=== PATIENT | male | born 1985 | race African-American/Black ===

== ENCOUNTER 2018-07-22 12:57 | Inpatient (IN) | payer MEDICAID, SELFPAY ==
[2018-07-22] VITALS (43 sets, daily range): BP systolic 70–187; BP diastolic 48–112; PULSE 89–136; RESP 13–34; TEMP 35.2–37.3; O2SAT 97–100; BMI 29.7; BMI 24.2; BMI 29.8
--- NOTE | 2018-07-22 13:05 | RAD_ITS ---
STUDY: X-RAY CHEST REASON FOR EXAM: Male, 32 years old. Endotracheal tube and nasogastric tube placement. TECHNIQUE: Single AP portable view of the chest. COMPARISON: Comparison is made with prior study dated September 23, 2013. FINDINGS: An endotracheal tube is in situ. The tip is at 9.5 cm proximal to the amanda. The tip of the nasogastric tube is below the left hemidiaphragm. EKG electrodes are seen. An electrode pad is seen overlying the right axillary region. The lungs are clear and expanded. There is no demonstrated pleural abnormality. Normal size heart. Normal mediastinum and josé manuel. Normal visualized pulmonary arteries. Normal visualized aortic arch and descending thoracic aorta. Normal visualized thoracic spine. Normal visualized ribs, clavicles, and shoulders. There is no demonstrated abnormality of the visualized soft tissue structures of the upper abdomen. RAD/Chest 1 View (Portable) IMPRESSION: The tip of the endotracheal tube is at 9.5 cm proximal to the amanda. Electronically Signed: Miah Sexton MD at 13:56 EST Tel [phone], Service support ,
--- NOTE | 2018-07-22 13:06 | RAD_ITS ---
STUDY: X-RAY - ABDOMEN/PELVIS REASON FOR EXAM: Male, 32 years old. Nasogastric tube placement. TECHNIQUE: Single AP view of the abdomen / pelvis. COMPARISON: None. FINDINGS: Normal visualized lung bases. The tip of the nasogastric tube is in the proximal portion of the body of the stomach. Mildly dilated small bowel loops in the central abdomen. There is a 4.4 rounded metallic BB overlying the left upper quadrant. The visualized liver, spleen and kidneys are grossly normal in size and morphology. Normal soft tissue structures. Normal visualized osseous structures. RAD/Abdomen Single View (Portable) IMPRESSION: The tip of the nasogastric tube is in the proximal portion of the body of the stomach. Slightly dilated small bowel loops in the central abdomen. 4.4 round metallic BB seen overlying the left midabdomen. Electronically Signed: Miah Sexton MD at 13:58 EST Tel [phone], Service support ,
--- NOTE | 2018-07-22 13:13 | EKG12_ITS ---
Test Reason : REPEAT Blood Pressure : / mmHG Vent. Rate : 109 BPM Atrial Rate : 110 BPM P-R Int : 000 ms QRS Dur : 090 ms QT Int : 366 ms P-R-T Axes : 000 089 034 degrees QTc Int : 492 ms Sinus tachycardia Marked ST abnormality, possible anterior subendocardial injury Abnormal ECG When compared with ECG of 22-JUL-2018 13:13, MANUAL COMPARISON REQUIRED, DATA IS UNCONFIRMED Confirmed by RANDELL JEFFREY, ALY ([id number]), telegraph editor BRUCE RIVERA ([id number]) on 07/25/2018 7:46:17 AM Referred By: Kvng Jolly Confirmed By:ALY MEJIAS MD
--- NOTE | 2018-07-22 13:13 | CASEMGMT ---
BABAK responded to code blue. Tool And Production Planner was also present. No family was present. Per police sergeant who spoke with patient's uncle on the phone he was going to find a ride in to the hospital and patient's mom would be here in about a half hour. Tool And Production Planner plans on returning in a little bit to check to see if family has arrived. Message left for ED BABAK. Emilia ALFREDO MSW
--- NOTE | 2018-07-22 13:17 | CHAPLAIN ---
Type of Pastoral Visit ___ Initial Visit ___ Follow-up Visit ___ On-call Visit ___ General Patient Visit ___ Spiritual Assessment ___ Family Conference ___ Bereavement ___ Rapid Response _x__ Code Blue ___ Other (describe below) Pastoral Care Referral From ___ Patient ___ Family ___ Nurse ___ Physician ___ Training Director ___ Physician Office Specialist _x__ Other (describe below) Sacrament/Intervention ___ Active listening ___ Anointing ___ Restorationist ___ Bereavement ___ Communion ___ Lyndsey exploration ___ ___ Life review ___ Prayer ___ Reconciliation ___ Sacrament of Sick ___ Supportive presence ___ Wedding _x__ Other (describe below) Pastoral Comments
--- NOTE | 2018-07-22 13:23 | EKG12_ITS ---
Test Reason : CARDIAC ARREST Blood Pressure : / mmHG Vent. Rate : 148 BPM Atrial Rate : 136 BPM P-R Int : 000 ms QRS Dur : 106 ms QT Int : 308 ms P-R-T Axes : 000 093 -71 degrees QTc Int : 483 ms Atrial fibrillation with rapid ventricular response Incomplete right bundle branch block Possible Right ventricular hypertrophy , Probably RV main ACUTE VT / STEMI Abnormal ECG Inferiorlateral ischemia Confirmed by RANDELL JEFFREY, ALY ([id number]), video effects editor BRUCE RIVERA ([id number]) on 07/25/2018 7:46:41 AM Referred By: Kvng Jolly Confirmed By:ALY MEJIAS MD
[2018-07-22 13:32] LABS: Amphetamine Urine VISTA POSITIVE (<1000 ng/mL); Barbiturate Urine VISTA NEGATIVE (< 200 ng/mL); Benzodiazepine Urine VISTA NEGATIVE (< 200 ng/mL); Cocaine Urine VISTA NEGATIVE (< 300 ng/mL); Ecstacy Urine VISTA POSITIVE (< 500 ng/mL); Methadone Urine VISTA NEGATIVE (< 300 ng/mL); PCP Urine VISTA NEGATIVE (< 25 ng/mL); THC Urine VISTA NEGATIVE (< 50 ng/mL); Vista UDS pH Range 6
[2018-07-22 13:37] LABS: Absolute Lymphocyte Count 3.79 X10^3/ul (0.83-4.51); Absolute Neutrophil Count 0.5 X10^3/uL (2.0-7.7); Basophil# 0.01 X10^3/uL; Basophil% 0.2 % (0-1); Eosinophil# 0.04 X10^3/uL; Eosinophils% 0.9 % (0-5); Hematocrit 40.8 % (40-54); Hemoglobin 12.8 g/dl (13.0-16.5); Lymphocyte # 3.79 X10^3/ul (4.0); Lymphocyte % 82.2 % (19-41); Mean Corp Hgb Conc 31.4 g/gl (32-36); Mean Corpuscular Hgb 28.1 pg (27.0-32.0); Mean Corpuscular Volume 89.5 fL (80-94); Mean Platelet Vol. 9.9 fl (6.2-12.0); Monocyte# 0.21 X10^3/uL; Monocyte% 4.6 % (0-10); Neutrophil # 0.46 X10^3/uL (2.7-7.7); Neutrophil % 9.9 % (47-70); Platelet Count 198 K/mm3 (150-450); RBC Distribution Width CV 12.7 % (11.6-14.6); RBC Distribution Width SD 40.9 fl (35.1-43.9); Red Blood Count 4.56 M/mm3 (4.6-6.2); White Blood Count 4.6 K/mm3 (4.4-11.0)
--- NOTE | 2018-07-22 13:37 | ED.RN ---
PATIENT HAVING GAG REFLEX AND COUGH REFLEX WITH SUCTIONING. PT THEN STARTED POSTURING.
[2018-07-22 13:39] LABS: BUN 13 mg/dL (7-18); Creatinine, Serum 1.97 mg/dL (0.70-1.30); Estimated Creatinine Clearance 61.96 ml/min; Glucose 307 mg/dL (74-106)
[2018-07-22 13:40] LABS: Bacteria 0 SEEN /hpf (None Seen); Red Blood Cells-Urine 0 SEEN /hpf (0-5); Squamous Epithelial Cells - UA 0 SEEN /hpf (0-5); White Blood Cells 0 SEEN /hpf (0-5)
[2018-07-22 13:40] LABS: ALB/GLOB Ratio 1.2 RATIO (0.9-2.4); AST(SGOT) 188 U/L (15-37); Alanine Aminotransfer ALT/SGPT 233 U/L (16-61); Albumin, Serum 3.1 g/dL (3.2-5.0); Alkaline Phosphatase 46 U/L (45-117); Anion Gap 22 (5-15); BUN/Creat Ratio 6.6 RATIO (10-20); Calcium,Total 8.3 mg/dL (8.5-10.1); Chloride 103 mmol/L (98-107); EST Glomerular Filtration Rate 42 mL/min (>60); Est Glom Filt Rate - Afr Amer 51 mL/min (>60); Globulin 2.6 g/dL (2.2-4.2); Potassium 3.8 mmol/L (3.5-5.1); Protein, Total 5.7 g/dL (6.4-8.2); Sodium Level 143 mmol/L (136-145)
[2018-07-22 13:41] LABS: Base Excess -17 mmol/L (-2 to +2); Bicarbonate 11.7 mmol/L (22-26); Blood Gas Specimen Type ART; FI02 40; Mode A-C; O2 Delivery Device Vent; PEEP 5; PO2 192 mmHG (75-100); RR 14; SITE R Radial; SO2 99 % (95-99); Time Given 1320; Total Carbon Dioxide 13 mmol/L; Vt 500; pCO2 31.4 mmHg (35-45); pH 7.18 (7.35-7.45)
--- NOTE | 2018-07-22 13:45 | PCM.CONS.C ---
Reason for Consult Date of Consultation: 07/22/18 History of Present Illness: The patient is a 32 year old M with past medical history significant for drug abuse and alcoholism. He also has a history of bipolar disorder. According to the emergency room physician, the patient was at a known drug house in [facility]. He collapsed outside of [place]. First responders gave him Narcan. He was noted to have no pulse. EMS found the patient to be in PEA. Upon arrival to the emergency room, the patient was in PEA. He was treated as per ACLS protocol with mandaen of pulse. His first EKG was suspicious for ST elevations in V1 and V2 subsequently a STEMI alert was called. Patient at present is intubated. [] Past Medical History Allergies/Adverse Reactions: Allergies Penicillins [PCN] Allergy (Verified 11/23/16 17:03) Abd cramps/diarrhea Home Medications: Ambulatory Orders Medication Instructions Recorded Citalopram [Celexa] 40 mg PO DAILY 08/28/13 Paliperidone Palmitate [Invega 156 mg IM QHS 07/17/15 Sustenna] Ranitidine [Zantac] 150 mg PO BID 07/17/15 Past Medical History (Chronic Problems): Chronic Problems Schizophrenia (Chronic) Drug abuse (Chronic) Methamphetamine abuse (Chronic) Smoking Status: Current every day smoker Review of Systems - Review of Systems General: Reports: - - History of drug abuse and alcoholism. Rest unable to obtain as patient is intubated and no family present. Subjectve: Patient is intubated. Nonresponsive. Objective: Vital Signs Temp Pulse Resp BP Pulse Ox 96.6 F L 91 18 105/58 L 99 07/22/18 13:41 07/22/18 13:41 07/22/18 13:41 07/22/18 13:41 07/22/18 13:41 Oxygen Delivery Method Mechanical Ventilator Weight: 102.4 kg Body Mass Index (BMI) 29.7 General: - - Intubated. On a ventilator. HEENT: Atraumatic, Normocephalic Neck: Supple Lungs: Diminished Nayan Bases Cardiovascular: Regular Rhythm, Normal S1, Normal S2 Abdomen: Bowel Sounds Present, Soft Extremities: No edema Neurological: - - Patient appears to have a gag reflex as noted from his reaction when his ET tube was being suctioned. 07/22/18 13:00: Sodium 143, Potassium 3.8, Chloride 103, Carbon Dioxide 18.0 L, Anion Gap 22 H, BUN 13, Creatinine 1.97 H, Est GFR (MDRD) Af Amer 51 L, Est GFR (MDRD) Non-Af 42 L, BUN/Creatinine Ratio 6.6 L, Glucose 307 H, Calcium 8.3 L, Total Bilirubin 0.30, Troponin I < 0.015 07/22/18 13:33: pH 7.18 L*, Bicarbonate Actual 11.7 L, POC Total CO2 13, Base Excess -17 L, O2 Saturation 99, ABG pCO2 31.4 L, ABG pO2 192 H, Abiel Test NA 07/22/18 13:37: pH 7.18 L*, Bicarbonate Actual 11.7 L, POC Total CO2 13, Base Excess -17 L, O2 Saturation 99, ABG pCO2 31.4 L, ABG pO2 187 H, Abiel Test NA Rhythm: Normal sinus rhythm EKG: First EKG showed possible ST elevations in V1 and V2. However subsequent EKGs showed resolution of that. ECHO: Quick bedside imaging revealed normal LV systolic function. Full study being awaited Stress Test: Cardiac Cath: PCI: CT Surgery: Holter monitor: EPS: PPM: CXR: Chest CT Scan: Assessment/Plan 1. PEA cardiac arrest. Most likely secondary to drug abuse. Manage as per critical care. LV systolic function appears grossly normal. No V. fib was noted either by EMS or upon arrival in the emergency room 2. EKG changes. Initial EKG changes likely secondary to epinephrine boluses that he got during his resuscitation attempts. Presently no ST elevation myocardial infarction 3. Vent dependent respiratory failure. 4. History of drug abuse 5. History of EtOH abuse
[2018-07-22 13:49] LABS: International Normalized Ratio 1.4; Prothrombin Time (Protime)PT. 17.4 SECONDS (11.7-14.9)
[2018-07-22 13:50] LABS: Color, Urine Yellow (Yellow); Glucose, Dipstick Normal (Normal); Ketone-Dipstick 5 mg/dl (Negative); Leukocyte Esterase-Dipstick Negative /ul (Negative); Nitrite-Dipstick Negative (Negative); Occult Blood-Urine Negative /ul (Negative); Protein-Dipstick 30 mg/dl (Negative); Urine Bilirubin Dipstick Negative (Negative); Urine Clarity Clear (Clear); Urine Urobilinogen 1 mg/dl (Normal)
[2018-07-22 13:53] LABS: Differential Indicated SCAN CRITERIA MET; POSITIVE COUNT YES; POSITIVE DIFFERENTIAL YES; POSITIVE MORPHOLOGY YES
--- NOTE | 2018-07-22 13:55 | ECHOD_ITS ---
Reason For Study: Abn EKG Left Ventricle Normal LV size. Left ventricular systolic function is lower limits of normal. The estimated ejection fraction is 50 %. Normal diastology for age. No regional wall motion abnormalities noted. Right Ventricle Mildly dilated right ventricle. Mild global right ventricular systolic dysfunction. Atria Normal left atrium. Normal right atrium. Mitral Valve Normal mitral valve. Tricuspid Valve Normal tricuspid valve. Mild to moderate (1-2+) tricuspid valve insufficiency. Pulmonary artery systolic pressure is 45 mmHg. Aortic Valve Normal aortic valve. Trisinus/trileaflet aortic valve. Pulmonic Valve Normal pulmonic valve. Great Vessels Normal aortic root. The pulmonary artery is normal size. Normal inferior vena cava. Pericardium/Pleural No pericardial effusion. MMode/2D Measurements & Calculations LVIDd: 4.7 cm IVSd: 1.0 cm Ao root diam: 2.8 cm LVIDs: 2.8 cm LVPWd: 1.2 cm RVDd: 4.0 cm FS: 38.8 % LAV(MOD-sp4): 30.2 ml LA A4 area: 14.5 cm2 LA dimension(2D): 2.8 cm RA A4 area: 18.9 cm2 Doppler Measurements & Calculations MV E max carlos: 63.9 cm/sec Lat Peak E' Carlos: 16.1 cm/sec Med Peak E' Carlos: 10.1 cm/sec MV A max carlos: 43.5 cm/sec E/E' lat: 4.0 E/E' med: 6.3 MV E/A: 1.5 Ao V2 max: 103.5 cm/sec LV V1 max: 84.6 cm/sec PA V2 max: 95.3 cm/sec Ao max P.3 mmHg LV V1 max P.9 mmHg TR max carlos: 315.2 cm/sec TR max P.7 mmHg Interpretation Summary Normal LV size. Left ventricular systolic function is lower limits of normal. The estimated ejection fraction is 50 %. Mild to moderate (1-2+) tricuspid valve insufficiency. Pulmonary artery systolic pressure is 45 mmHg. Normal diastology for age. Mildly dilated right ventricle. Mild global right ventricular systolic dysfunction. Ordering Physician: Yessenia Chapman Referring Physician: Yessenia Chapman Performed By: Mihaela Suero RDCS
[2018-07-22 13:57] LABS: Differential Comment SCANNED; Reactive Lymphocyte 1+
[2018-07-22 13:58] LABS: Mucous, Urine 3+ /hpf (<or=2+)
--- NOTE | 2018-07-22 14:02 | CPS ---
pt intubated by squad size 8.0 tube
[2018-07-22 14:05] LABS: Lactic Acid 14.3 mmol/L (0.4-2.0)
--- NOTE | 2018-07-22 14:11 | PCM.HP.STD ---
Problem List (1) Cardiac arrest Status: Acute (2) Metabolic acidosis, increased anion gap Status: Acute (3) GERD (gastroesophageal reflux disease) Status: Acute (4) Schizophrenia Status: Acute (5) Drug abuse Status: Acute History of Present Illness Date of Admission: 07/22/18 Chief Complaint: Cardiac arrest The patient is a 32 year old M with a history of drug abuse, possible bipolar disorder, GERD who presented after leaving a friend's house that is a known drug user. He went to [facility] and it is unclear whether or not police witnessed him arrest or they arrived and he was already in cardiac arrest. EMS was called and they administered Narcan after the police had also administered Narcan, and they noticed that he had no pulse and proceeded to perform CPR. He was brought to the emergency room where CPR was continued and multiple rounds of epinephrine were given and an EKG demonstrated a STEMI and cardiology was consulted. After about 10 minutes the STEMI had resolved on EKG and cardiology felt this was due to the epinephrine that had been given during CPR. He was successfully resuscitated and was also intubated. All history was obtained through chart review as no family was present. Past Medical History Allergies Penicillins [PCN] Allergy (Verified 11/23/16 17:03) Abd cramps/diarrhea Home Medications: Ambulatory Orders Medication Instructions Recorded Citalopram [Celexa] 40 mg PO DAILY 08/28/13 Paliperidone Palmitate [Invega 156 mg IM QHS 07/17/15 Sustenna] Ranitidine [Zantac] 150 mg PO BID 07/17/15 Surgical History: - - Unable to obtain since patient is intubated and sedated Smoking Status: Current every day smoker Tobacco Use: Cigarettes Drugs: - - UA is positive for methamphetamines, however given the patient is sedated and intubated unable to clarify all drugs used and how much alcohol is used. Review of Systems Unable to obtain accurate/complete ROS d/t: Intubation and sedation therefore unable to also obtain family history VTE Information - Inpt Only VTE Present on Admission: No Patient Problems: Active and Suspected Problems Cardiac arrest (Acute) Metabolic acidosis, increased anion gap (Acute) GERD (gastroesophageal reflux disease) (Acute) Schizophrenia (Acute) Drug abuse (Acute) - Physical Exam General: - - Intubated and sedated HEENT: Atraumatic, PERRLA, Normocephalic Oral: Dry Mucosa Neck: Supple, Trachea Midline Lungs: Clear to auscultation, Normal air movement, No rhonchi, No wheeze, No rales Cardiovascular: Regular rate, Regular Rhythm, Normal S1, Normal S2, No murmurs Abdomen: Soft, Non-Distended, No Hepato-splenomegaly Extremities: No edema, Capillary Refill Less than 3 Seconds Neurological: - - Intubated and sedated Psych/Mental Status: - - Debated and sedated Vital Signs Temp Pulse Resp BP Pulse Ox 95.5 F L 92 14 110/69 99 07/22/18 13:56 07/22/18 13:56 07/22/18 13:56 07/22/18 13:56 07/22/18 13:56 Oxygen Delivery Method Mechanical Ventilator Weight: 225 lb 12.054 oz Body Mass Index (BMI) 29.7 Laboratory Tests Past 24 Hrs 07/22/18 07/22/18 07/22/18 13:00 13:00 13:00 WBC 4.6 RBC 4.56 L Hgb 12.8 L Hct 40.8 MCV 89.5 MCH 28.1 MCHC 31.4 L RDW 12.7 RDW Differential 40.9 Plt Count 198 MPV 9.9 Immature Gran % (Auto) 2.200 H Neut % (Auto) 9.9 L Lymph % (Auto) 82.2 H [place] % (Auto) 4.6 Eos % (Auto) 0.9 Baso % (Auto) 0.2 Absolute Neuts (auto) 0.5 L Absolute Lymphs (auto) 3.79 Total Counted Not Reportable Differential Comment SCANNED Diff Path Review May foll Reactive Lymphocytes 1+ PT 17.4 H INR 1.4 Specimen Type Sample Site pH Bicarbonate Actual POC Total CO2 Base Excess O2 Saturation O2 % ABG pCO2 ABG pO2 Abiel Test Respiration Rate O2 Delivery Device Minute Volume Vent Mode Tidal Volume POC PEEP Blood Gas Notified Whom Blood Gas Notified Time Sodium 143 Potassium 3.8 Chloride 103 Carbon Dioxide 18.0 L Anion Gap 22 H BUN 13 Creatinine 1.97 H Estim Creat Clear Calc 61.96 Est GFR (MDRD) Af Amer 51 L Est GFR (MDRD) Non-Af 42 L BUN/Creatinine Ratio 6.6 L Glucose 307 H Lactic Acid Calcium 8.3 L Total Bilirubin 0.30 AST 188 H ALT 233 H Alkaline Phosphatase 46 Troponin I < 0.015 Total Protein 5.7 L Albumin 3.1 L Globulin 2.6 Albumin/Globulin Ratio 1.2 Urine Color Urine Clarity Urine pH Ur Specific Neola Urine Protein Urine Glucose (UA) Urine Ketones Urine Occult Blood Urine Nitrite Urine Bilirubin Urine Urobilinogen Ur Leukocyte Esterase Urine RBC Urine WBC Ur Squamous Epith Cells Urine Bacteria Urine Mucus Urine Opiates Screen Urine Methadone Screen Ur Barbiturates Screen Ur Phencyclidine Scrn Ur Amphetamines Screen U Methamphetamin-MDMA U Benzodiazepines Scrn Urine Cocaine Screen U Cannabinoids Screen Ur Drug Screen Comment 07/22/18 07/22/18 07/22/18 13:10 13:10 13:16 WBC RBC Hgb Hct MCV MCH MCHC RDW RDW Differential Plt Count MPV Immature Gran % (Auto) Neut % (Auto) Lymph % (Auto) [place] % (Auto) Eos % (Auto) Baso % (Auto) Absolute Neuts (auto) Absolute Lymphs (auto) Total Counted Differential Comment Diff Path Review Reactive Lymphocytes PT INR Specimen Type Sample Site pH Bicarbonate Actual POC Total CO2 Base Excess O2 Saturation O2 % ABG pCO2 ABG pO2 Abiel Test Respiration Rate O2 Delivery Device Minute Volume Vent Mode Tidal Volume POC PEEP Blood Gas Notified Whom Blood Gas Notified Time Sodium Potassium Chloride Carbon Dioxide Anion Gap BUN Creatinine Estim Creat Clear Calc Est GFR (MDRD) Af Amer Est GFR (MDRD) Non-Af BUN/Creatinine Ratio Glucose Lactic Acid 14.3 H* Calcium Total Bilirubin AST ALT Alkaline Phosphatase Troponin I Total Protein Albumin Globulin Albumin/Globulin Ratio Urine Color Yellow Urine Clarity Clear Urine pH 5.0 Ur Specific Neola 1.030 Urine Protein 30 H Urine Glucose (UA) Normal Urine Ketones 5 H Urine Occult Blood Negative Urine Nitrite Negative Urine Bilirubin Negative Urine Urobilinogen 1 H Ur Leukocyte Esterase Negative Urine RBC 0 SEEN Urine WBC 0 SEEN Ur Squamous Epith Cells 0 SEEN Urine Bacteria 0 SEEN Urine Mucus 3+ Urine Opiates Screen NEGATIVE Urine Methadone Screen NEGATIVE Ur Barbiturates Screen NEGATIVE Ur Phencyclidine Scrn NEGATIVE Ur Amphetamines Screen POSITIVE H U Methamphetamin-MDMA POSITIVE H U Benzodiazepines Scrn NEGATIVE Urine Cocaine Screen NEGATIVE U Cannabinoids Screen NEGATIVE Ur Drug Screen Comment 07/22/18 07/22/18 13:33 13:37 WBC RBC Hgb Hct MCV MCH MCHC RDW RDW Differential Plt Count MPV Immature Gran % (Auto) Neut % (Auto) Lymph % (Auto) [place] % (Auto) Eos % (Auto) Baso % (Auto) Absolute Neuts (auto) Absolute Lymphs (auto) Total Counted Differential Comment Diff Path Review Reactive Lymphocytes PT INR Specimen Type ART ART Sample Site R Radial R Radial pH 7.18 L* 7.18 L* Bicarbonate Actual 11.7 L 11.7 L POC Total CO2 13 13 Base Excess -17 L -17 L O2 Saturation 99 99 O2 % 40 40 ABG pCO2 31.4 L 31.4 L ABG pO2 192 H 187 H Abiel Test NA NA Respiration Rate 14 14 O2 Delivery Device Vent Vent Minute Volume 13.00 13.00 Vent Mode A-C A-C Tidal Volume 500 500 POC PEEP 5 5 Blood Gas Notified Whom ED MD ED MD Blood Gas Notified Time 1320 1330 Sodium Potassium Chloride Carbon Dioxide Anion Gap BUN Creatinine Estim Creat Clear Calc Est GFR (MDRD) Af Amer Est GFR (MDRD) Non-Af BUN/Creatinine Ratio Glucose Lactic Acid Calcium Total Bilirubin AST ALT Alkaline Phosphatase Troponin I Total Protein Albumin Globulin Albumin/Globulin Ratio Urine Color Urine Clarity Urine pH Ur Specific Neola Urine Protein Urine Glucose (UA) Urine Ketones Urine Occult Blood Urine Nitrite Urine Bilirubin Urine Urobilinogen Ur Leukocyte Esterase Urine RBC Urine WBC Ur Squamous Epith Cells Urine Bacteria Urine Mucus Urine Opiates Screen Urine Methadone Screen Ur Barbiturates Screen Ur Phencyclidine Scrn Ur Amphetamines Screen U Methamphetamin-MDMA U Benzodiazepines Scrn Urine Cocaine Screen U Cannabinoids Screen Ur Drug Screen Comment Assessment/Plan All Active Problems Cardiac arrest (Acute) Metabolic acidosis, increased anion gap (Acute) GERD (gastroesophageal reflux disease) (Acute) Schizophrenia (Acute) Drug abuse (Acute) 1. Metabolic acidosis with an anion gap after cardiac arrest likely secondary to acute drug use/JENNIFER - Per report he was pulseless for anywhere between 25 and 45 minutes - UDS is positive for Methamphetamines - Hemodynamically stable at the moment - C/s to cardiology and monomer recovery operator - Intubated and sedated - PPI on board as well as NPO - IVF@150, monitor labs and renal function given elevated creatining to 1.97 - Lactic acid is 14.3, will repeat and monitor - He is having some reflexive activity, but nothing that seems overtly purposeful 2. Bipolar/Depression - Will hold his home medications 3. Elevated LFTs - Likely acute given arrest - Last LFTs in 11/2016 were normal - Will monitor Given the duration of his pulselessness and the degree of metabolic derangement, prognosis is guarded. Reported that family should be arriving soon. Will discuss with family when they arrive. DVT: Heparin/SCDs Code Visit Inpatient E&M: 55268 Init Hosp L3
[2018-07-22] MEDS: Aspirin 325 MG Tablet PO (14:29)
--- NOTE | 2018-07-22 14:30 | CT_ITS ---
STUDY: CT BRAIN WITHOUT CONTRAST REASON FOR EXAM: Male, 32 years old. Altered mental status. Overdose. RADIATION DOSAGE (If Supplied By Facility): CTDIvol = ( 60.81 ) mGy, DLP = ( 1997.33 ) mGycm TECHNIQUE: Transaxial CT imaging of the brain was performed without administration of intravenous contrast material. Individualized dose optimization techniques were used for this CT. COMPARISON: Comparison is made with prior study dated September 23, 2013. FINDINGS: Normal soft tissue structures. Normal calvarium. Normal size ventricles and extra-axial spaces for the patient's age. Normal white matter tracts of the cerebral hemispheres. Normal basal ganglia and thalami. Normal brainstem. Normal cerebellum. There is no intracranial hemorrhage. There are no findings of an acute ischemic infarction. Partial opacification of the left maxillary sinus. Mucosal thickening of the ethmoid sinuses. CT/Brain/Head without Contrast IMPRESSION: Normal unenhanced CT scan of the brain. Partial opacification of the left axillary sinus and mucosal thickening of the ethmoid sinuses. Electronically Signed: Miah Sexton MD at 15:30 EST Tel [phone], Service support ,
--- NOTE | 2018-07-22 14:48 | ED.VISSUMM ---
- ER Visit Summary Date of Service: 07/22/18 Chief Complaint: Unresponsive/CPR in progress History of Present Illness: The patient is a 32 M who presents after being found unresponsive. According to police and EMS he was found coming from a known drug house. There are specialty is methamphetamines. He then went to [facility] and he was found unresponsive. EMS was called. Police and EMS both administered Narcan without any response. EMS then noted PEA and started CPR. They administered 2 rounds of epinephrine. The rest of the patient's medical history is unknown at this time. Physical Examination: Patient currently has no vital signs. HEENT exam reveals fixed pupils. His mucous members are moist. He currently has no pulse. He has diminished breath sounds on the left. He is currently intubated. Abdomen soft and nondistended. He has no peripheral edema. No rashes on the skin. He is currently unresponsive with no purposeful movements. GCS is 3T Test Results: [] Emergency Department Course and Treatment: Upon arrival patient was given another dose of epinephrine. He then regained a pulse. Initial EKG after regaining the pulse revealed some ST elevation in V1 through V3. A STEMI team was called. I spoke with Dr. Chapman who came to evaluate the patient. Repeat EKG revealed no ST elevation. This was likely due to the epinephrine given. He was not taken to the Vocational Training Teacher. The project admin recommended an echocardiogram at bedside and aspirin, Brilinta and heparin. Patient's initial heart rate was elevated in the 140s but then was sinus rhythm in the 90s after 20 minutes. His laboratory studies reveal a normal hemoglobin. He has a elevated anion gap secondary to lactic acidosis of 14.2. Troponin normal. ABG on the ventilator is 7.18/31.4/1 87/11.7. Tox screen reveals methamphetamines. Chest x-ray reveals that his endotracheal tube is 9-1/2 cm above the amanda. This was advanced slightly. Dr. Darden with the ICU was at bedside in the emergency department and evaluate the patient as well. I discussed with hospitalist for admission. Patient will be started on propofol for sedation Treatment Plan: [] Disposition: Admit Impression: Cardiopulmonary arrest Drug abuse Critical care time 40 minutes This note was generated with [employer] software. It may contain incorrect words, spelling, and punctuation that were not noted in review of the chart prior to signing ED Disposition - Plan for ED Patient: Chief Complaint: CPR
[2018-07-22] MEDS: Propofol 10MG/Ml 1,000 MG/100 ML Bottle 6.144 MG CONT INF (14:50)
--- NOTE | 2018-07-22 14:52 | ED.DCSUM_ITS ---
- ER Visit Summary Date of Service: 07/22/18 Chief Complaint: Unresponsive/CPR in progress History of Present Illness: The patient is a 32 M who presents after being found unresponsive. According to police and EMS he was found coming from a known drug house. There are specialty is methamphetamines. He then went to [facility] and he was found unresponsive. EMS was called. Police and EMS both administered Narcan without any response. EMS then noted PEA and started CPR. They administered 2 rounds of epinephrine. The rest of the patient's medical history is unknown at this time. Physical Examination: Patient currently has no vital signs. HEENT exam reveals fixed pupils. His mucous members are moist. He currently has no pulse. He has diminished breath sounds on the left. He is currently intubated. Abdomen soft and nondistended. He has no peripheral edema. No rashes on the skin. He is currently unresponsive with no purposeful movements. GCS is 3T Test Results: [] Emergency Department Course and Treatment: Upon arrival patient was given another dose of epinephrine. He then regained a pulse. Initial EKG after regaining the pulse revealed some ST elevation in V1 through V3. A STEMI team was called. I spoke with Dr. Chapman who came to evaluate the patient. Repeat EKG revealed no ST elevation. This was likely due to the epinephrine given. He was not taken to the Stereotyper. The user interface engineer recommended an echocardiogram at bedside and aspirin, Brilinta and heparin. Patient's initial heart rate was elevated in the 140s but then was sinus rhythm in the 90s after 20 minutes. His laboratory studies reveal a normal hemoglobin. He has a elevated anion gap secondary to lactic acidosis of 14.2. Troponin normal. ABG on the ventilator is 7.18/31.4/1 87/11.7. Tox screen reveals methamphetamines. Chest x-ray reveals that his endotracheal tube is 9-1/2 cm above the amanda. This was advanced slightly. Dr. Darden with the ICU was at bedside in the emergency department and evaluate the patient as well. I discussed with hospitalist for admission. Patient will be started on propofol for sedation Treatment Plan: [] Disposition: Admit Impression: Cardiopulmonary arrest Drug abuse Critical care time 40 minutes This note was generated with [employer] software. It may contain incorrect words, spelling, and punctuation that were not noted in review of the chart prior to signing ED Disposition - Plan for ED Patient: Chief Complaint: CPR
--- NOTE | 2018-07-22 15:37 | RAD_ITS ---
STUDY: X-RAY CHEST REASON FOR EXAM: Male, 32 years old. Tube placement TECHNIQUE: Frontal view of the chest COMPARISON: 07/22/2018 FINDINGS: There is an endotracheal tube noted with its tip approximately 3 cm above the amanda. There is an enteric tube noted with its tip in the stomach. The lungs are clear. There are no pleural effusions. There is no pneumothorax. The heart is normal in size. The visualized osseous structures are within normal limits. RAD/Chest 1 View (Portable) IMPRESSION: Satisfactory position of the support lines and tubes. No acute thoracic pathology. Electronically Signed: Romain Salazar, at 16:11 EST Tel , Service support ,
--- NOTE | 2018-07-22 15:40 | CASEMGMT ---
Social Work Note Response to code blue. Pt was brought in by EMS. Family arrived and was updated regarding pt's status. Offered support and family declined needs. Made aware that SW was available. Assistant Fitness Manager remained in room. THALIA Hylton, SAYDA
--- NOTE | 2018-07-22 16:05 | CHAPLAIN ---
Type of Pastoral Visit ___ Initial Visit ___ Follow-up Visit ___ On-call Visit ___ General Patient Visit ___ Spiritual Assessment ___ Family Conference ___ Bereavement ___ Rapid Response _x__ Code Blue ___ Other (describe below) Pastoral Care Referral From ___ Patient _x__ Family ___ Nurse ___ Physician ___ Automobile Technician ___ Esol Instructor _x__ Other (describe below) Sacrament/Intervention ___ Active listening ___ Anointing ___ Evangelical ___ Bereavement ___ Communion ___ Lyndsey exploration ___ ___ Life review _x__ Prayer ___ Reconciliation ___ Sacrament of Sick _x__ Supportive presence ___ Wedding _x__ Other (describe below) Pastoral Comments met family as they came to ED and then escorted family to ICU; time given, presence, offers of support and items that might be appreciated; connected family with ICU waitstaff captain; prayer welcomed; follow up with family in waiting room after other patients visited
[2018-07-22] MEDS: 0.9% Normal Saline 1,000 ML 150 ML IV ×2 (16:18→23:33)
[2018-07-22 16:27] LABS: Lactic Acid 4.1 mmol/L (0.4-2.0)
[2018-07-22 16:32] LABS: CPK Total, Creatine Kinase 166 U/L (39-308); Triglycerides 88 mg/dL
--- NOTE | 2018-07-22 16:40 | PCM.CON.CC ---
Problem List (1) Methamphetamine abuse Status: Chronic (2) Cardiac arrest Status: Acute (3) Metabolic acidosis, increased anion gap Status: Acute (4) GERD (gastroesophageal reflux disease) Status: Suspected Qualifiers: Esophagitis presence: esophagitis presence not specified Qualified Code(s): K21.9 - Gastro-esophageal reflux disease without esophagitis (5) Schizophrenia Status: Chronic Qualifiers: Schizophrenia type: paranoid schizophrenia Qualified Code(s): F20.0 - Paranoid schizophrenia (6) Drug abuse Status: Chronic Reason for Consult Date of Consultation: 07/22/18 Reason for Consultation: Cardiac arrest History of Present Illness: The patient is a 32 year old M, with past medical history listed below, who presented to [facility] on 07/22/2018 after having an arrest at a local [facility]. Initial history was very unclear, but patient was found in cardiac arrest by EMS. Patient did receive Narcan x2 with no improvement. Patient had received multiple rounds of epinephrine, bicarbonate and was endotracheally intubated for reported PEA arrest. Estimated downtime ranges between 25 and 45 minutes. Patient did obtain return to spontaneous perfusion while in the emergency department. A STEMI team was called, but patient was not taken to the Chief Deputy Clerk/Bailiff as it was thought to be secondary to epinephrine. Patient was personally evaluated while in the emergency department. Since my initial evaluation, patient has not been responsive to any questioning. Patient has noted to be posturing, diaphoretic and drooling. Patient with pinpoint pupils with variable reactivity. Patient was noted to have a gag and cough reflex on my initial evaluation. Patient has remained tachypneic. Multiple family members have been to him. Patient does have a history of mental health disease, but reportedly has been getting injections every other week with improvement in overall condition. Spoke with patient's girlfriend named Emilia and she states that the patient has been using a significant amount of methamphetamine over the last week. Patient had been having issues with shortness of breath, but this was resolving spontaneously, so he did not seek evaluation in the ER. Patient reportedly would become extremely short of breath and put his hands on his knees, but would recover over 5-7 minutes. Patient was reportedly chasing someone just prior to having his arrest. Patient reportedly had used methamphetamine approximately 1 hour prior to the event per Emilia. Patient reportedly has not had any constitutional symptoms such as fever, chills, nausea, vomiting, diarrhea, syncope, chest pain, abdominal pain or lower extremity swelling recently. Past Medical History Past Medical History (Chronic Problems): Chronic Problems Schizophrenia (Chronic) Drug abuse (Chronic) Methamphetamine abuse (Chronic) Allergies Penicillins [PCN] Allergy (Verified 11/23/16 17:03) Abd cramps/diarrhea Home Medications: Ambulatory Orders Medication Instructions Recorded Citalopram [Celexa] 40 mg PO DAILY 08/28/13 Paliperidone Palmitate [Invega 156 mg IM QHS 07/17/15 Sustenna] Ranitidine [Zantac] 150 mg PO BID 07/17/15 Surgical History: - - Unable to obtain since patient is intubated and sedated Smoking Status: Current every day smoker Tobacco Use: Cigarettes Drugs: - - UA is positive for methamphetamines, however given the patient is sedated and intubated unable to clarify all drugs used and how much alcohol is used. Review of Systems Comment: See HPI Patient Problems: Active and Suspected Problems Cardiac arrest (Acute) Metabolic acidosis, increased anion gap (Acute) GERD (gastroesophageal reflux disease) (Suspected) Objective: CT scan of the head was personally reviewed. Patient did have decreased ventricular size and there were some areas of possible strauss-white blurring. Thickening of ethmoid sinuses was appreciated. Original chest x-ray showed an extremely high endotracheal tube. This was adjusted. Repeat chest x-ray shows no obvious aspiration in appropriate placement of supportive devices. - Physical Exam General: - - Diaphoretic. Not following commands. Flexion posturing noted HEENT: Atraumatic, Normocephalic, - - Scleral injection. Oral: Moist Mucosa, No Gingival or Mucosal Lesions/ Ulcerations, - - Hypersalivation Neck: Supple, No JVD, No Nodes, Trachea Midline Lungs: Clear to auscultation, Normal air movement, No rhonchi, No wheeze, No rales, - - Fair to poor vent synchrony. No dullness to percussion Cardiovascular: Normal S1, Normal S2, No murmurs, No rub noted, No Gallop, Tachycardic Abdomen: Bowel Sounds Present, Soft, Non Tender, Non-Distended, No Hepato-splenomegaly Extremities: No clubbing, No cyanosis, No edema, Capillary Refill Less than 3 Seconds Skin: No rashes, No breakdown Musculoskeletal: No Tenderness to Palpation of Joints or Extremities Lymphatic: No Cervical, Supraclavicular, or Inguinal Adenopathy Neurological: - - Positive gag and cough reflexes noted. Posturing improving with sedation. Pinpoint pupils. Psych/Mental Status: Impulsive, Restless Vital Signs Temp Pulse Resp BP Pulse Ox 35.2 C L 122 H 33 H 128/68 H 100 07/22/18 14:55 07/22/18 16:13 07/22/18 16:13 07/22/18 14:55 07/22/18 16:13 Oxygen Delivery Method Mechanical Ventilator Weight: 102.4 kg Body Mass Index (BMI) 29.7 Laboratory Tests Past 24 Hrs 07/22/18 07/22/18 07/22/18 13:00 13:00 13:00 WBC 4.6 RBC 4.56 L Hgb 12.8 L Hct 40.8 MCV 89.5 MCH 28.1 MCHC 31.4 L RDW 12.7 RDW Differential 40.9 Plt Count 198 MPV 9.9 Immature Gran % (Auto) 2.200 H Neut % (Auto) 9.9 L Lymph % (Auto) 82.2 H Hawkins % (Auto) 4.6 Eos % (Auto) 0.9 Baso % (Auto) 0.2 Absolute Neuts (auto) 0.5 L Absolute Lymphs (auto) 3.79 Total Counted Not Reportable Differential Comment SCANNED Diff Path Review May foll Reactive Lymphocytes 1+ PT 17.4 H INR 1.4 Specimen Type Sample Site pH Bicarbonate Actual POC Total CO2 Base Excess O2 Saturation O2 % ABG pCO2 ABG pO2 Abiel Test Respiration Rate O2 Delivery Device Minute Volume Vent Mode Tidal Volume POC PEEP Blood Gas Notified Whom Blood Gas Notified Time Sodium 143 Potassium 3.8 Chloride 103 Carbon Dioxide 18.0 L Anion Gap 22 H BUN 13 Creatinine 1.97 H Estim Creat Clear Calc 61.96 Est GFR (MDRD) Af Amer 51 L Est GFR (MDRD) Non-Af 42 L BUN/Creatinine Ratio 6.6 L Glucose 307 H Lactic Acid Calcium 8.3 L Total Bilirubin 0.30 AST 188 H ALT 233 H Alkaline Phosphatase 46 Total Creatine Kinase Troponin I < 0.015 Total Protein 5.7 L Albumin 3.1 L Globulin 2.6 Albumin/Globulin Ratio 1.2 Triglycerides Urine Color Urine Clarity Urine pH Ur Specific [place] Urine Protein Urine Glucose (UA) Urine Ketones Urine Occult Blood Urine Nitrite Urine Bilirubin Urine Urobilinogen Ur Leukocyte Esterase Urine RBC Urine WBC Ur Squamous Epith Cells Urine Bacteria Urine Mucus Urine Opiates Screen Urine Methadone Screen Ur Barbiturates Screen Ur Phencyclidine Scrn Ur Amphetamines Screen U Methamphetamin-MDMA U Benzodiazepines Scrn Urine Cocaine Screen U Cannabinoids Screen Ur Drug Screen Comment 07/22/18 07/22/18 07/22/18 13:00 13:10 13:10 WBC RBC Hgb Hct MCV MCH MCHC RDW RDW Differential Plt Count MPV Immature Gran % (Auto) Neut % (Auto) Lymph % (Auto) Hawkins % (Auto) Eos % (Auto) Baso % (Auto) Absolute Neuts (auto) Absolute Lymphs (auto) Total Counted Differential Comment Diff Path Review Reactive Lymphocytes PT INR Specimen Type Sample Site pH Bicarbonate Actual POC Total CO2 Base Excess O2 Saturation O2 % ABG pCO2 ABG pO2 Abiel Test Respiration Rate O2 Delivery Device Minute Volume Vent Mode Tidal Volume POC PEEP Blood Gas Notified Whom Blood Gas Notified Time Sodium Potassium Chloride Carbon Dioxide Anion Gap BUN Creatinine Estim Creat Clear Calc Est GFR (MDRD) Af Amer Est GFR (MDRD) Non-Af BUN/Creatinine Ratio Glucose Lactic Acid Calcium Total Bilirubin AST ALT Alkaline Phosphatase Total Creatine Kinase 166 Troponin I Total Protein Albumin Globulin Albumin/Globulin Ratio Triglycerides 88 Urine Color Yellow Urine Clarity Clear Urine pH 5.0 Ur Specific [place] 1.030 Urine Protein 30 H Urine Glucose (UA) Normal Urine Ketones 5 H Urine Occult Blood Negative Urine Nitrite Negative Urine Bilirubin Negative Urine Urobilinogen 1 H Ur Leukocyte Esterase Negative Urine RBC 0 SEEN Urine WBC 0 SEEN Ur Squamous Epith Cells 0 SEEN Urine Bacteria 0 SEEN Urine Mucus 3+ Urine Opiates Screen NEGATIVE Urine Methadone Screen NEGATIVE Ur Barbiturates Screen NEGATIVE Ur Phencyclidine Scrn NEGATIVE Ur Amphetamines Screen POSITIVE H U Methamphetamin-MDMA POSITIVE H U Benzodiazepines Scrn NEGATIVE Urine Cocaine Screen NEGATIVE U Cannabinoids Screen NEGATIVE Ur Drug Screen Comment 07/22/18 07/22/18 07/22/18 13:16 13:33 13:37 WBC RBC Hgb Hct MCV MCH MCHC RDW RDW Differential Plt Count MPV Immature Gran % (Auto) Neut % (Auto) Lymph % (Auto) Hawkins % (Auto) Eos % (Auto) Baso % (Auto) Absolute Neuts (auto) Absolute Lymphs (auto) Total Counted Differential Comment Diff Path Review Reactive Lymphocytes PT INR Specimen Type ART ART Sample Site R Radial R Radial pH 7.18 L* 7.18 L* Bicarbonate Actual 11.7 L 11.7 L POC Total CO2 13 13 Base Excess -17 L -17 L O2 Saturation 99 99 O2 % 40 40 ABG pCO2 31.4 L 31.4 L ABG pO2 192 H 187 H Abiel Test NA NA Respiration Rate 14 14 O2 Delivery Device Vent Vent Minute Volume 13.00 13.00 Vent Mode A-C A-C Tidal Volume 500 500 POC PEEP 5 5 Blood Gas Notified Whom ED MD ED MD Blood Gas Notified Time 1320 1330 Sodium Potassium Chloride Carbon Dioxide Anion Gap BUN Creatinine Estim Creat Clear Calc Est GFR (MDRD) Af Amer Est GFR (MDRD) Non-Af BUN/Creatinine Ratio Glucose Lactic Acid 14.3 H* Calcium Total Bilirubin AST ALT Alkaline Phosphatase Total Creatine Kinase Troponin I Total Protein Albumin Globulin Albumin/Globulin Ratio Triglycerides Urine Color Urine Clarity Urine pH Ur Specific [place] Urine Protein Urine Glucose (UA) Urine Ketones Urine Occult Blood Urine Nitrite Urine Bilirubin Urine Urobilinogen Ur Leukocyte Esterase Urine RBC Urine WBC Ur Squamous Epith Cells Urine Bacteria Urine Mucus Urine Opiates Screen Urine Methadone Screen Ur Barbiturates Screen Ur Phencyclidine Scrn Ur Amphetamines Screen U Methamphetamin-MDMA U Benzodiazepines Scrn Urine Cocaine Screen U Cannabinoids Screen Ur Drug Screen Comment 07/22/18 07/22/18 15:40 15:40 WBC RBC Hgb Hct MCV MCH MCHC RDW RDW Differential Plt Count MPV Immature Gran % (Auto) Neut % (Auto) Lymph % (Auto) Hawkins % (Auto) Eos % (Auto) Baso % (Auto) Absolute Neuts (auto) Absolute Lymphs (auto) Total Counted Differential Comment Diff Path Review Reactive Lymphocytes PT INR Specimen Type Sample Site pH Bicarbonate Actual POC Total CO2 Base Excess O2 Saturation O2 % ABG pCO2 ABG pO2 Abiel Test Respiration Rate O2 Delivery Device Minute Volume Vent Mode Tidal Volume POC PEEP Blood Gas Notified Whom Blood Gas Notified Time Sodium Pending Potassium Pending Chloride Pending Carbon Dioxide Pending Anion Gap Pending BUN Pending Creatinine Pending Estim Creat Clear Calc Est GFR (MDRD) Af Amer Pending Est GFR (MDRD) Non-Af Pending BUN/Creatinine Ratio Pending Glucose Pending Lactic Acid 4.1 H* Calcium Pending Total Bilirubin Pending AST Pending ALT Pending Alkaline Phosphatase Pending Total Creatine Kinase Troponin I Total Protein Pending Albumin Pending Globulin Albumin/Globulin Ratio Triglycerides Urine Color Urine Clarity Urine pH Ur Specific [place] Urine Protein Urine Glucose (UA) Urine Ketones Urine Occult Blood Urine Nitrite Urine Bilirubin Urine Urobilinogen Ur Leukocyte Esterase Urine RBC Urine WBC Ur Squamous Epith Cells Urine Bacteria Urine Mucus Urine Opiates Screen Urine Methadone Screen Ur Barbiturates Screen Ur Phencyclidine Scrn Ur Amphetamines Screen U Methamphetamin-MDMA U Benzodiazepines Scrn Urine Cocaine Screen U Cannabinoids Screen Ur Drug Screen Comment Clinical Impression(s) from Imaging Studies Chest X-Ray 07/22/18 13:05 IMPRESSION: The tip of the endotracheal tube is at 9.5 cm proximal to the amanda. Electronically Signed: Miah Sexton MD at 13:56 EST Tel [phone], Service support , KUB X-Ray 07/22/18 13:06 IMPRESSION: The tip of the nasogastric tube is in the proximal portion of the body of the stomach. Slightly dilated small bowel loops in the central abdomen. 4.4 round metallic BB seen overlying the left midabdomen. Electronically Signed: Miah Sexton MD at 13:58 EST Tel [phone], Service support , Brain CT 07/22/18 14:30 IMPRESSION: Normal unenhanced CT scan of the brain. Partial opacification of the left axillary sinus and mucosal thickening of the ethmoid sinuses. Electronically Signed: Miah Sexton MD at 15:30 EST Tel [phone], Service support , Chest X-Ray 07/22/18 15:37 IMPRESSION: Satisfactory position of the support lines and tubes. No acute thoracic pathology. Electronically Signed: Romain Salazar, at 16:11 EST Tel , Service support , Assessment/Plan Active and Suspected Problems Cardiac arrest (Acute) Metabolic acidosis, increased anion gap (Acute) GERD (gastroesophageal reflux disease) (Suspected) RECOMMENDATIONS: 1. Propofol to help with vent synchrony 2. Repeat lactic acid currently pending 3. Monitor for DI 4. Wean oxygen as tolerated 5. Frequent neuro checks 6. Full CODE STATUS IMPRESSIONS: 1. PEA arrest/respiratory failure/metabolic encephalopathy/probable anoxic encephalopathy Patient with 25-45 minutes of pulseless activity. Patient is having what appears to be anoxic injury on physical exam. Still with brainstem reflexes. We will continue to support patient for now. Patient is on IV fluids. Continue to support hemodynamics. Patient will be placed on propofol to help with vent synchrony. Repeat lactic acid is currently pending. Discussed with mother at length. Patient is a full code. She understands that his overall prognosis is extremely guarded at this time. ABG shows metabolic encephalopathy with adequate oxygenation 2. Methamphetamine abuse Patient is reportedly been using substantial amounts of methamphetamine recently. Patient did use methamphetamine 1 hour prior to presentation. We will continue to support hemodynamics. Will monitor for withdrawal. 3. Bipolar/depression/elevated LFTs/poor history Complicates care, management, recovery and prognosis. All home medications have been discontinued. 4. Possible acute kidney injury Unclear baseline renal function. Patient's creatinine is currently elevated at 1.97. Clinical suspicion for dehydration secondary to significant drug use. Patient is getting rehydrated at this time. Continue to monitor closely. TIME: 80 minutes of critical care time spent addressing patient's PEA arrest, respiratory failure, obtaining history, review of all data and collaboration with care team. (1:30 PM to 5 PM) Code Visit Procedures: 77612 Critial Care Addl 30 Min 9xxxx: [id number] Critical care first hour
--- NOTE | 2018-07-22 16:46 | CON.PCM_ITS ---
Problem List (1) Methamphetamine abuse Status: Chronic (2) Cardiac arrest Status: Acute (3) Metabolic acidosis, increased anion gap Status: Acute (4) GERD (gastroesophageal reflux disease) Status: Suspected Qualifiers: Esophagitis presence: esophagitis presence not specified Qualified Code(s): K21.9 - Gastro-esophageal reflux disease without esophagitis (5) Schizophrenia Status: Chronic Qualifiers: Schizophrenia type: paranoid schizophrenia Qualified Code(s): F20.0 - Paranoid schizophrenia (6) Drug abuse Status: Chronic Reason for Consult Date of Consultation: 07/22/18 Reason for Consultation: Cardiac arrest History of Present Illness: The patient is a 32 year old M, with past medical history listed below, who presented to [facility] on 07/22/2018 after having an arrest at a local [facility]. Initial history was very unclear, but patient was found in cardiac arrest by EMS. Patient did receive Narcan x2 with no improvement. Patient had received multiple rounds of epinephrine, bicarbonate and was endotracheally intubated for reported PEA arrest. Estimated downtime ranges between 25 and 45 minutes. Patient did obtain return to spontaneous perfusion while in the emergency department. A STEMI team was called, but patient was not taken to the Histology Supervisor as it was thought to be secondary to epinephrine. Patient was personally evaluated while in the emergency department. Since my initial evaluation, patient has not been responsive to any questioning. Patient has noted to be posturing, diaphoretic and drooling. Patient with pinpoint pupils with variable reactivity. Patient was noted to have a gag and cough reflex on my initial evaluation. Patient has remained tachypneic. Multiple family members have been to him. Patient does have a history of mental health disease, but reportedly has been getting injections every other week with improvement in overall condition. Spoke with patient's girlfriend named Emilia and she states that the patient has been using a significant amount of methamphetamine over the last week. Patient had been having issues with shortness of breath, but this was resolving spontaneously, so he did not seek evaluation in the ER. Patient reportedly would become extremely short of breath and put his hands on his knees, but would recover over 5-7 minutes. Patient was reportedly chasing someone just prior to having his arrest. Patient reportedly had used methamphetamine approximately 1 hour prior to the event per Emilia. P tainaient reportedly has not had any constitutional symptoms such as fever, chills, nausea, vomiting, diarrhea, syncope, chest pain, abdominal pain or lower extremity swelling recently. Past Medical History Past Medical History (Chronic Problems): Chronic Problems Schizophrenia (Chronic) Drug abuse (Chronic) Methamphetamine abuse (Chronic) Allergies Penicillins [PCN] Allergy (Verified 11/23/16 17:03) Abd cramps/diarrhea Home Medications: Ambulatory Orders Medication Instructions Recorded Citalopram [Celexa] 40 mg PO DAILY 08/28/13 Paliperidone Palmitate [Invega 156 mg IM QHS 07/17/15 Sustenna] Ranitidine [Zantac] 150 mg PO BID 07/17/15 Surgical History: - - Unable to obtain since patient is intubated and sedated Smoking Status: Current every day smoker Tobacco Use: Cigarettes Drugs: - - UA is positive for methamphetamines, however given the patient is sedated and intubated unable to clarify all drugs used and how much alcohol is used. Review of Systems Comment: See HPI Patient Problems: Active and Suspected Problems Cardiac arrest (Acute) Metabolic acidosis, increased anion gap (Acute) GERD (gastroesophageal reflux disease) (Suspected) Objective: CT scan of the head was personally reviewed. Patient did have decreased ventricular size and there were some areas of possible strauss-white blurring. Thickening of ethmoid sinuses was appreciated. Original chest x-ray showed an extremely high endotracheal tube. This was adjusted. Repeat chest x-ray shows no obvious aspiration in appropriate placement of supportive devices. - Physical Exam General: - - Diaphoretic. Not following commands. Flexion posturing noted HEENT: Atraumatic, Normocephalic, - - Scleral injection. Oral: Moist Mucosa, No Gingival or Mucosal Lesions/ Ulcerations, - - Hypersalivation Neck: Supple, No JVD, No Nodes, Trachea Midline Lungs: Clear to auscultation, Normal air movement, No rhonchi, No wheeze, No rales, - - Fair to poor vent synchrony. No dullness to percussion Cardiovascular: Normal S1, Normal S2, No murmurs, No rub noted, No Gallop, Tachycardic Abdomen: Bowel Sounds Present, Soft, Non Tender, Non-Distended, No Hepato- splenomegaly Extremities: No clubbing, No cyanosis, No edema, Capillary Refill Less than 3 Seconds Skin: No rashes, No breakdown Musculoskeletal: No Tenderness to Palpation of Joints or Extremities Lymphatic: No Cervical, Supraclavicular, or Inguinal Adenopathy Neurological: - - Positive gag and cough reflexes noted. Posturing improving with sedation. Pinpoint pupils. Psych/Mental Status: Impulsive, Restless Vital Signs Temp Pulse Resp BP Pulse Ox 35.2 C L 122 H 33 H 128/68 H 100 07/22/18 14:55 07/22/18 16:13 07/22/18 16:13 07/22/18 14:55 07/22/18 16:13 Oxygen Delivery Method Mechanical Ventilator Weight: 102.4 kg Body Mass Index (BMI) 29.7 Laboratory Tests Past 24 Hrs 07/22/18 07/22/18 07/22/18 13:00 13:00 13:00 WBC 4.6 RBC 4.56 L Hgb 12.8 L Hct 40.8 MCV 89.5 MCH 28.1 MCHC 31.4 L RDW 12.7 RDW Differential 40.9 Plt Count 198 MPV 9.9 Immature Gran % (Auto) 2.200 H Neut % (Auto) 9.9 L Lymph % (Auto) 82.2 H Irion % (Auto) 4.6 Eos % (Auto) 0.9 Baso % (Auto) 0.2 Absolute Neuts (auto) 0.5 L Absolute Lymphs (auto) 3.79 Total Counted Not Reportable Differential Comment SCANNED Diff Path Review May foll Reactive Lymphocytes 1+ PT 17.4 H INR 1.4 Specimen Type Sample Site pH Bicarbonate Actual POC Total CO2 Base Excess O2 Saturation O2 % ABG pCO2 ABG pO2 Abiel Test Respiration Rate O2 Delivery Device Minute Volume Vent Mode Tidal Volume POC PEEP Blood Gas Notified Whom Blood Gas Notified Time Sodium 143 Potassium 3.8 Chloride 103 Carbon Dioxide 18.0 L Anion Gap 22 H BUN 13 Creatinine 1.97 H Estim Creat Clear Calc 61.96 Est GFR (MDRD) Af Amer 51 L Est GFR (MDRD) Non-Af 42 L BUN/Creatinine Ratio 6.6 L Glucose 307 H Lactic Acid Calcium 8.3 L Total Bilirubin 0.30 AST 188 H ALT 233 H Alkaline Phosphatase 46 Total Creatine Kinase Troponin I < 0.015 Total Protein 5.7 L Albumin 3.1 L Globulin 2.6 Albumin/Globulin Ratio 1.2 Triglycerides Urine Color Urine Clarity Urine pH Ur Specific [place] Urine Protein Urine Glucose (UA) Urine Ketones Urine Occult Blood Urine Nitrite Urine Bilirubin Urine Urobilinogen Ur Leukocyte Esterase Urine RBC Urine WBC Ur Squamous Epith Cells Urine Bacteria Urine Mucus Urine Opiates Screen Urine Methadone Screen Ur Barbiturates Screen Ur Phencyclidine Scrn Ur Amphetamines Screen U Methamphetamin-MDMA U Benzodiazepines Scrn Urine Cocaine Screen U Cannabinoids Screen Ur Drug Screen Comment 07/22/18 07/22/18 07/22/18 13:00 13:10 13:10 WBC RBC Hgb Hct MCV MCH MCHC RDW RDW Differential Plt Count MPV Immature Gran % (Auto) Neut % (Auto) Lymph % (Auto) Irion % (Auto) Eos % (Auto) Baso % (Auto) Absolute Neuts (auto) Absolute Lymphs (auto) Total Counted Differential Comment Diff Path Review Reactive Lymphocytes PT INR Specimen Type Sample Site pH Bicarbonate Actual POC Total CO2 Base Excess O2 Saturation O2 % ABG pCO2 ABG pO2 Abiel Test Respiration Rate O2 Delivery Device Minute Volume Vent Mode Tidal Volume POC PEEP Blood Gas Notified Whom Blood Gas Notified Time Sodium Potassium Chloride Carbon Dioxide Anion Gap BUN Creatinine Estim Creat Clear Calc Est GFR (MDRD) Af Amer Est GFR (MDRD) Non-Af BUN/Creatinine Ratio Glucose Lactic Acid Calcium Total Bilirubin AST ALT Alkaline Phosphatase Total Creatine Kinase 166 Troponin I Total Protein Albumin Globulin Albumin/Globulin Ratio Triglycerides 88 Urine Color Yellow Urine Clarity Clear Urine pH 5.0 Ur Specific [place] 1.030 Urine Protein 30 H Urine Glucose (UA) Normal Urine Ketones 5 H Urine Occult Blood Negative Urine Nitrite Negative Urine Bilirubin Negative Urine Urobilinogen 1 H Ur Leukocyte Esterase Negative Urine RBC 0 SEEN Urine WBC 0 SEEN Ur Squamous Epith Cells 0 SEEN Urine Bacteria 0 SEEN Urine Mucus 3+ Urine Opiates Screen NEGATIVE Urine Methadone Screen NEGATIVE Ur Barbiturates Screen NEGATIVE Ur Phencyclidine Scrn NEGATIVE Ur Amphetamines Screen POSITIVE H U Methamphetamin-MDMA POSITIVE H U Benzodiazepines Scrn NEGATIVE Urine Cocaine Screen NEGATIVE U Cannabinoids Screen NEGATIVE Ur Drug Screen Comment 07/22/18 07/22/18 07/22/18 13:16 13:33 13:37 WBC RBC Hgb Hct MCV MCH MCHC RDW RDW Differential Plt Count MPV Immature Gran % (Auto) Neut % (Auto) Lymph % (Auto) Irion % (Auto) Eos % (Auto) Baso % (Auto) Absolute Neuts (auto) Absolute Lymphs (auto) Total Counted Differential Comment Diff Path Review Reactive Lymphocytes PT INR Specimen Type ART ART Sample Site R Radial R Radial pH 7.18 L* 7.18 L* Bicarbonate Actual 11.7 L 11.7 L POC Total CO2 13 13 Base Excess -17 L -17 L O2 Saturation 99 99 O2 % 40 40 ABG pCO2 31.4 L 31.4 L ABG pO2 192 H 187 H Abiel Test NA NA Respiration Rate 14 14 O2 Delivery Device Vent Vent Minute Volume 13.00 13.00 Vent Mode A-C A-C Tidal Volume 500 500 POC PEEP 5 5 Blood Gas Notified Whom ED MD ED MD Blood Gas Notified Time 1320 1330 Sodium Potassium Chloride Carbon Dioxide Anion Gap BUN Creatinine Estim Creat Clear Calc Est GFR (MDRD) Af Amer Est GFR (MDRD) Non-Af BUN/Creatinine Ratio Glucose Lactic Acid 14.3 H* Calcium Total Bilirubin AST ALT Alkaline Phosphatase Total Creatine Kinase Troponin I Total Protein Albumin Globulin Albumin/Globulin Ratio Triglycerides Urine Color Urine Clarity Urine pH Ur Specific [place] Urine Protein Urine Glucose (UA) Urine Ketones Urine Occult Blood Urine Nitrite Urine Bilirubin Urine Urobilinogen Ur Leukocyte Esterase Urine RBC Urine WBC Ur Squamous Epith Cells Urine Bacteria Urine Mucus Urine Opiates Screen Urine Methadone Screen Ur Barbiturates Screen Ur Phencyclidine Scrn Ur Amphetamines Screen U Methamphetamin-MDMA U Benzodiazepines Scrn Urine Cocaine Screen U Cannabinoids Screen Ur Drug Screen Comment 07/22/18 07/22/18 15:40 15:40 WBC RBC Hgb Hct MCV MCH MCHC RDW RDW Differential Plt Count MPV Immature Gran % (Auto) Neut % (Auto) Lymph % (Auto) Irion % (Auto) Eos % (Auto) Baso % (Auto) Absolute Neuts (auto) Absolute Lymphs (auto) Total Counted Differential Comment Diff Path Review Reactive Lymphocytes PT INR Specimen Type Sample Site pH Bicarbonate Actual POC Total CO2 Base Excess O2 Saturation O2 % ABG pCO2 ABG pO2 Abiel Test Respiration Rate O2 Delivery Device Minute Volume Vent Mode Tidal Volume POC PEEP Blood Gas Notified Whom Blood Gas Notified Time Sodium Pending Potassium Pending Chloride Pending Carbon Dioxide Pending Anion Gap Pending BUN Pending Creatinine Pending Estim Creat Clear Calc Est GFR (MDRD) Af Amer Pending Est GFR (MDRD) Non-Af Pending BUN/Creatinine Ratio Pending Glucose Pending Lactic Acid 4.1 H* Calcium Pending Total Bilirubin Pending AST Pending ALT Pending Alkaline Phosphatase Pending Total Creatine Kinase Troponin I Total Protein Pending Albumin Pending Globulin Albumin/Globulin Ratio Triglycerides Urine Color Urine Clarity Urine pH Ur Specific [place] Urine Protein Urine Glucose (UA) Urine Ketones Urine Occult Blood Urine Nitrite Urine Bilirubin Urine Urobilinogen Ur Leukocyte Esterase Urine RBC Urine WBC Ur Squamous Epith Cells Urine Bacteria Urine Mucus Urine Opiates Screen Urine Methadone Screen Ur Barbiturates Screen Ur Phencyclidine Scrn Ur Amphetamines Screen U Methamphetamin-MDMA U Benzodiazepines Scrn Urine Cocaine Screen U Cannabinoids Screen Ur Drug Screen Comment Clinical Impression(s) from Imaging Studies Chest X-Ray 07/22/18 13:05 IMPRESSION: The tip of the endotracheal tube is at 9.5 cm proximal to the amanda. Electronically Signed: Miah Sexton MD at 13:56 EST Tel [phone], Service support , KUB X-Ray 07/22/18 13:06 IMPRESSION: The tip of the nasogastric tube is in the proximal portion of the body of the stomach. Slightly dilated small bowel loops in the central abdomen. 4.4 round metallic BB seen overlying the left midabdomen. Electronically Signed: Miah Sexton MD at 13:58 EST Tel [phone], Service support , Brain CT 07/22/18 14:30 IMPRESSION: Normal unenhanced CT scan of the brain. Partial opacification of the left axillary sinus and mucosal thickening of the ethmoid sinuses. Electronically Signed: Miah Sexton MD at 15:30 EST Tel [phone], Service support , Chest X-Ray 07/22/18 15:37 IMPRESSION: Satisfactory position of the support lines and tubes. No acute thoracic pathology. Electronically Signed: Romain Salazar, at 16:11 EST Tel , Service support , Assessment/Plan Active and Suspected Problems Cardiac arrest (Acute) Metabolic acidosis, increased anion gap (Acute) GERD (gastroesophageal reflux disease) (Suspected) RECOMMENDATIONS: 1. Propofol to help with vent synchrony 2. Repeat lactic acid currently pending 3. Monitor for DI 4. Wean oxygen as tolerated 5. Frequent neuro checks 6. Full CODE STATUS IMPRESSIONS: 1. PEA arrest/respiratory failure/metabolic encephalopathy/probable anoxic encephalopathy Patient with 25-45 minutes of pulseless activity. Patient is having what appears to be anoxic injury on physical exam. Still with brainstem reflexes. We will continue to support patient for now. Patient is on IV fluids. Continue to support hemodynamics. Patient will be placed on propofol to help with vent synchrony. Repeat lactic acid is currently pending. Discussed with mother at length. Patient is a full code. She understands that his overall prognosis is extremely guarded at this time. ABG shows metabolic encephalopathy with adequate oxygenation 2. Methamphetamine abuse Patient is reportedly been using substantial amounts of methamphetamine recently. Patient did use methamphetamine 1 hour prior to presentation. We will continue to support hemodynamics. Will monitor for withdrawal. 3. Bipolar/depression/elevated LFTs/poor history Complicates care, management, recovery and prognosis. All home medications have been discontinued. 4. Possible acute kidney injury Unclear baseline renal function. Patient's creatinine is currently elevated at 1.97. Clinical suspicion for dehydration secondary to significant drug use. Patient is getting rehydrated at this time. Continue to monitor closely. TIME: 80 minutes of critical care time spent addressing patient's PEA arrest, respiratory failure, obtaining history, review of all data and collaboration with care team. (1:30 PM to 5 PM) Code Visit Procedures: [id number] Critial Care Addl 30 Min [id number]: [id number] Critical care first hour
[2018-07-22 16:48] LABS: ALB/GLOB Ratio 1.2 RATIO (0.9-2.4); AST(SGOT) 327 U/L (15-37); Alanine Aminotransfer ALT/SGPT 288 U/L (16-61); Albumin, Serum 3.4 g/dL (3.2-5.0); Alkaline Phosphatase 52 U/L (45-117); Anion Gap 8 (5-15); BUN 16 mg/dL (7-18); BUN/Creat Ratio 8.7 RATIO (10-20); Calcium,Total 7.5 mg/dL (8.5-10.1); Chloride 112 mmol/L (98-107); Creatinine, Serum 1.83 mg/dL (0.70-1.30); EST Glomerular Filtration Rate 46 mL/min (>60); Est Glom Filt Rate - Afr Amer 56 mL/min (>60); Globulin 2.8 g/dL (2.2-4.2); Glucose 100 mg/dL (74-106); Potassium 4.8 mmol/L (3.5-5.1); Protein, Total 6.2 g/dL (6.4-8.2); Sodium Level 145 mmol/L (136-145)
[2018-07-22 17:18] LABS: Reflex Lactate? Y
[2018-07-22] MEDS: Propofol 10MG/Ml 1,000 MG/100 ML Bottle 18.432 MG CONT INF (19:35)
[2018-07-22 19:52] LABS: Reflex Lactate? Y
--- NOTE | 2018-07-22 19:56 | NURSING ---
Pt's mom Susy and significant other Ernestina at bedside, discussed plan of care for the night.
[2018-07-22] MEDS: 0.9% NaCl Peripheral Flush Adult/Peds IV ×3 (21:15→23:37)
[2018-07-22 21:26] LABS: Lactic Acid 0.9 mmol/L (0.4-2.0)
--- NOTE | 2018-07-22 21:55 | NURSING ---
Pt with no posturing noted at this time, breathing at rate of 14 with ventilator. With oral care, pt draws arm to chest.
[2018-07-22] MEDS: Chlorhexidine 15 ML PO (22:00)
--- NOTE | 2018-07-22 22:20 | NURSING ---
Propofol off at this time, pt with eyelids slightly open, pupils gazing downward, 2mm and reactive, responds to painful stimuli to nailbed on foot but not to nailbed on hands. Cough noted with ett suctioning.
--- NOTE | 2018-07-22 23:02 | NURSING ---
Pt noted to have jerky movments of arms toward body, propofol restarted at 25mcg/kg/min
[2018-07-22] MEDS: Labetalol 20 MG/4 ML Vial 10 MG IV (23:36)
--- NOTE | 2018-07-22 23:44 | NURSING ---
10mg ivp labetolol given for sbp>160
[2018-07-23] VITALS (39 sets, daily range): BP systolic 112–170; BP diastolic 55–108; PULSE 58–98; RESP 14–21; TEMP 36.9–39; O2SAT 95–100
[2018-07-23] MEDS: Heparin Injection (Vial) 5,000 UNIT/ML VIAL 5000 UNIT SC ×3 (00:15→21:27)
[2018-07-23] MEDS: Propofol 10MG/Ml 1,000 MG/100 ML Bottle 18.432 MG CONT INF ×2 (01:10→05:54)
[2018-07-23] MEDS: 0.9% NaCl Peripheral Flush Adult/Peds IV (03:34)
[2018-07-23] MEDS: CHLORHEXIDINE GLUC 2% CLOTH 1 EACH TOWELETTE TOPICAL (03:35)
[2018-07-23] MEDS: Labetalol 20 MG/4 ML Vial 10 MG IV (03:35)
[2018-07-23 04:21] LABS: Hematocrit 37.2 % (40-54); Hemoglobin 12.5 g/dl (13.0-16.5); Mean Corp Hgb Conc 33.6 g/gl (32-36); Mean Corpuscular Hgb 28.6 pg (27.0-32.0); Mean Corpuscular Volume 85.1 fL (80-94); Mean Platelet Vol. 9.6 fl (6.2-12.0); Platelet Count 200 K/mm3 (150-450); RBC Distribution Width CV 12.8 % (11.6-14.6); RBC Distribution Width SD 39.1 fl (35.1-43.9); Red Blood Count 4.37 M/mm3 (4.6-6.2); Scan Indicated on CBC? Y/N NO
[2018-07-23 04:37] LABS: ALB/GLOB Ratio 1.1 RATIO (0.9-2.4); AST(SGOT) 294 U/L (15-37); Alanine Aminotransfer ALT/SGPT 231 U/L (16-61); Alkaline Phosphatase 43 U/L (45-117); Anion Gap 8 (5-15); BUN 17 mg/dL (7-18); BUN/Creat Ratio 10.1 RATIO (10-20); Calcium,Total 7.8 mg/dL (8.5-10.1); Chloride 114 mmol/L (98-107); Creatinine, Serum 1.68 mg/dL (0.70-1.30); EST Glomerular Filtration Rate 51 mL/min (>60); Est Glom Filt Rate - Afr Amer 62 mL/min (>60); Estimated Creatinine Clearance 72.66 ml/min; Globulin 2.7 g/dL (2.2-4.2); Glucose 85 mg/dL (74-106); Magnesium 2.1 mg/dL (1.6-2.6); Phosphorus 4.4 mg/dL (2.5-4.9); Potassium 4.3 mmol/L (3.5-5.1); Protein, Total 5.7 g/dL (6.4-8.2); Sodium Level 144 mmol/L (136-145)
--- NOTE | 2018-07-23 04:48 | NURSING ---
Removed pt ring, placed in specimen container and stored in locked med drawer.
[2018-07-23 04:51] LABS: Base Excess -7 mmol/L (-2 to +2); Bicarbonate 17.3 mmol/L (22-26); Blood Gas Specimen Type ART; FI02 30; Mode A-C; O2 Delivery Device Vent; PEEP 5; PO2 161 mmHG (75-100); RR 17; SITE R Radial; SO2 100 % (95-99); Total Carbon Dioxide 18 mmol/L; Vt 477; pCO2 25.5 mmHg (35-45); pH 7.44 (7.35-7.45)
[2018-07-23] MEDS: 0.9% Normal Saline 1,000 ML 150 ML IV ×3 (05:54→21:27)
--- NOTE | 2018-07-23 07:05 | PCM.PN.INT ---
Subjective: Patient did okay overnight. Patient has continued to have the involuntary muscle movements per respiratory and nursing. Patient continues to have spontaneous respirations. Good urine output has been noted. Patient is not following any commands. Nursing reports waxing and waning neurologic status. General: No apparent distress, Non-Cooperative, - - Not following commands. Better vent synchrony noted. HEENT: Atraumatic, Normocephalic, - - Slightly diaphoretic, but improved. Pinpoint pupils. Oral: Moist Mucosa, No Gingival or Mucosal Lesions/ Ulcerations Neck: Supple, No JVD, No Nodes, Trachea Midline Lungs: Clear to auscultation, Normal air movement, No rhonchi, No wheeze, No rales, - - Symmetric expansion. No dullness to percussion. Cardiovascular: Regular rate, Regular Rhythm, Normal S1, Normal S2, No murmurs, No rub noted, No Gallop Abdomen: Bowel Sounds Present, Soft, Non Tender, Non-Distended Extremities: No clubbing, No cyanosis, No edema, Capillary Refill Less than 3 Seconds Skin: No rashes, No breakdown, - - Multiple tattoos Musculoskeletal: No Tenderness to Palpation of Joints or Extremities Lymphatic: No Cervical, Supraclavicular, or Inguinal Adenopathy Neurological: - - Some posturing noted. Less flexion posturing noted compared to yesterday. Spontaneous respirations when vent is on spontaneous mode. Positive gag and cough reflexes. Psych/Mental Status: Flat Affect Vital Signs Temp Pulse Resp BP Pulse Ox 37.3 C 83 15 160/78 H 100 07/23/18 06:00 07/23/18 06:39 07/23/18 06:39 07/23/18 06:00 07/23/18 06:39 Oxygen Delivery Method Mechanical Ventilator Weight: 83.8 kg Body Mass Index (BMI) 24.2 Intake and Output for Last 24 Hours 07/21/18 07/22/18 07/23/18 23:59 23:59 23:59 Intake Total 1364 / 1364 1001 / 1001 Output Total 750 / 750 250 / 250 Balance 614 / 614 751 / 751 Labs (Last 48 Hours) 07/22/18 07/22/18 07/22/18 13:00 13:00 13:00 WBC 4.6 RBC 4.56 L Hgb 12.8 L Hct 40.8 MCV 89.5 MCH 28.1 MCHC 31.4 L RDW 12.7 RDW Differential 40.9 Plt Count 198 MPV 9.9 Immature Gran % (Auto) 2.200 H Neut % (Auto) 9.9 L Lymph % (Auto) 82.2 H [place] % (Auto) 4.6 Eos % (Auto) 0.9 Baso % (Auto) 0.2 Absolute Neuts (auto) 0.5 L Absolute Lymphs (auto) 3.79 Total Counted Not Reportable Differential Comment SCANNED Diff Path Review May foll Reactive Lymphocytes 1+ PT 17.4 H INR 1.4 Specimen Type Sample Site pH Bicarbonate Actual POC Total CO2 Base Excess O2 Saturation O2 % ABG pCO2 ABG pO2 Abiel Test Respiration Rate O2 Delivery Device Minute Volume Vent Mode Tidal Volume POC PEEP Blood Gas Notified Whom Blood Gas Notified Time Sodium 143 Potassium 3.8 Chloride 103 Carbon Dioxide 18.0 L Anion Gap 22 H BUN 13 Creatinine 1.97 H Estim Creat Clear Calc 61.96 Est GFR (MDRD) Af Amer 51 L Est GFR (MDRD) Non-Af 42 L BUN/Creatinine Ratio 6.6 L Glucose 307 H Lactic Acid Calcium 8.3 L Phosphorus Magnesium Total Bilirubin 0.30 AST 188 H ALT 233 H Alkaline Phosphatase 46 Total Creatine Kinase Troponin I < 0.015 Total Protein 5.7 L Albumin 3.1 L Globulin 2.6 Albumin/Globulin Ratio 1.2 Triglycerides Urine Color Urine Clarity Urine pH Ur Specific [place] Urine Protein Urine Glucose (UA) Urine Ketones Urine Occult Blood Urine Nitrite Urine Bilirubin Urine Urobilinogen Ur Leukocyte Esterase Urine RBC Urine WBC Ur Squamous Epith Cells Urine Bacteria Urine Mucus Urine Opiates Screen Urine Methadone Screen Ur Barbiturates Screen Ur Phencyclidine Scrn Ur Amphetamines Screen U Methamphetamin-MDMA U Benzodiazepines Scrn Urine Cocaine Screen U Cannabinoids Screen Ur Drug Screen Comment 07/22/18 07/22/18 07/22/18 13:00 13:10 13:10 WBC RBC Hgb Hct MCV MCH MCHC RDW RDW Differential Plt Count MPV Immature Gran % (Auto) Neut % (Auto) Lymph % (Auto) [place] % (Auto) Eos % (Auto) Baso % (Auto) Absolute Neuts (auto) Absolute Lymphs (auto) Total Counted Differential Comment Diff Path Review Reactive Lymphocytes PT INR Specimen Type Sample Site pH Bicarbonate Actual POC Total CO2 Base Excess O2 Saturation O2 % ABG pCO2 ABG pO2 Abiel Test Respiration Rate O2 Delivery Device Minute Volume Vent Mode Tidal Volume POC PEEP Blood Gas Notified Whom Blood Gas Notified Time Sodium Potassium Chloride Carbon Dioxide Anion Gap BUN Creatinine Estim Creat Clear Calc Est GFR (MDRD) Af Amer Est GFR (MDRD) Non-Af BUN/Creatinine Ratio Glucose Lactic Acid Calcium Phosphorus Magnesium Total Bilirubin AST ALT Alkaline Phosphatase Total Creatine Kinase 166 Troponin I Total Protein Albumin Globulin Albumin/Globulin Ratio Triglycerides 88 Urine Color Yellow Urine Clarity Clear Urine pH 5.0 Ur Specific [place] 1.030 Urine Protein 30 H Urine Glucose (UA) Normal Urine Ketones 5 H Urine Occult Blood Negative Urine Nitrite Negative Urine Bilirubin Negative Urine Urobilinogen 1 H Ur Leukocyte Esterase Negative Urine RBC 0 SEEN Urine WBC 0 SEEN Ur Squamous Epith Cells 0 SEEN Urine Bacteria 0 SEEN Urine Mucus 3+ Urine Opiates Screen NEGATIVE Urine Methadone Screen NEGATIVE Ur Barbiturates Screen NEGATIVE Ur Phencyclidine Scrn NEGATIVE Ur Amphetamines Screen POSITIVE H U Methamphetamin-MDMA POSITIVE H U Benzodiazepines Scrn NEGATIVE Urine Cocaine Screen NEGATIVE U Cannabinoids Screen NEGATIVE Ur Drug Screen Comment 07/22/18 07/22/18 07/22/18 13:16 13:33 13:37 WBC RBC Hgb Hct MCV MCH MCHC RDW RDW Differential Plt Count MPV Immature Gran % (Auto) Neut % (Auto) Lymph % (Auto) [place] % (Auto) Eos % (Auto) Baso % (Auto) Absolute Neuts (auto) Absolute Lymphs (auto) Total Counted Differential Comment Diff Path Review Reactive Lymphocytes PT INR Specimen Type ART ART Sample Site R Radial R Radial pH 7.18 L* 7.18 L* Bicarbonate Actual 11.7 L 11.7 L POC Total CO2 13 13 Base Excess -17 L -17 L O2 Saturation 99 99 O2 % 40 40 ABG pCO2 31.4 L 31.4 L ABG pO2 192 H 187 H Abiel Test NA NA Respiration Rate 14 14 O2 Delivery Device Vent Vent Minute Volume 13.00 13.00 Vent Mode A-C A-C Tidal Volume 500 500 POC PEEP 5 5 Blood Gas Notified Whom ED ED Blood Gas Notified Time 1320 1330 Sodium Potassium Chloride Carbon Dioxide Anion Gap BUN Creatinine Estim Creat Clear Calc Est GFR (MDRD) Af Amer Est GFR (MDRD) Non-Af BUN/Creatinine Ratio Glucose Lactic Acid 14.3 H* Calcium Phosphorus Magnesium Total Bilirubin AST ALT Alkaline Phosphatase Total Creatine Kinase Troponin I Total Protein Albumin Globulin Albumin/Globulin Ratio Triglycerides Urine Color Urine Clarity Urine pH Ur Specific [place] Urine Protein Urine Glucose (UA) Urine Ketones Urine Occult Blood Urine Nitrite Urine Bilirubin Urine Urobilinogen Ur Leukocyte Esterase Urine RBC Urine WBC Ur Squamous Epith Cells Urine Bacteria Urine Mucus Urine Opiates Screen Urine Methadone Screen Ur Barbiturates Screen Ur Phencyclidine Scrn Ur Amphetamines Screen U Methamphetamin-MDMA U Benzodiazepines Scrn Urine Cocaine Screen U Cannabinoids Screen Ur Drug Screen Comment 07/22/18 07/22/18 07/22/18 15:40 15:40 20:45 WBC RBC Hgb Hct MCV MCH MCHC RDW RDW Differential Plt Count MPV Immature Gran % (Auto) Neut % (Auto) Lymph % (Auto) [place] % (Auto) Eos % (Auto) Baso % (Auto) Absolute Neuts (auto) Absolute Lymphs (auto) Total Counted Differential Comment Diff Path Review Reactive Lymphocytes PT INR Specimen Type Sample Site pH Bicarbonate Actual POC Total CO2 Base Excess O2 Saturation O2 % ABG pCO2 ABG pO2 Abiel Test Respiration Rate O2 Delivery Device Minute Volume Vent Mode Tidal Volume POC PEEP Blood Gas Notified Whom Blood Gas Notified Time Sodium 145 Potassium 4.8 Chloride 112 H Carbon Dioxide 25.0 Anion Gap 8 BUN 16 Creatinine 1.83 H Estim Creat Clear Calc 66.70 Est GFR (MDRD) Af Amer 56 L Est GFR (MDRD) Non-Af 46 L BUN/Creatinine Ratio 8.7 L Glucose 100 Lactic Acid 4.1 H* 0.9 Calcium 7.5 L Phosphorus Magnesium Total Bilirubin 0.40 AST 327 H ALT 288 H Alkaline Phosphatase 52 Total Creatine Kinase Troponin I Total Protein 6.2 L Albumin 3.4 Globulin 2.8 Albumin/Globulin Ratio 1.2 Triglycerides Urine Color Urine Clarity Urine pH Ur Specific [place] Urine Protein Urine Glucose (UA) Urine Ketones Urine Occult Blood Urine Nitrite Urine Bilirubin Urine Urobilinogen Ur Leukocyte Esterase Urine RBC Urine WBC Ur Squamous Epith Cells Urine Bacteria Urine Mucus Urine Opiates Screen Urine Methadone Screen Ur Barbiturates Screen Ur Phencyclidine Scrn Ur Amphetamines Screen U Methamphetamin-MDMA U Benzodiazepines Scrn Urine Cocaine Screen U Cannabinoids Screen Ur Drug Screen Comment 07/23/18 07/23/18 07/23/18 04:10 04:10 04:46 WBC 13.0 H RBC 4.37 L Hgb 12.5 L Hct 37.2 L MCV 85.1 MCH 28.6 MCHC 33.6 RDW 12.8 RDW Differential 39.1 Plt Count 200 MPV 9.6 Immature Gran % (Auto) Neut % (Auto) Lymph % (Auto) [place] % (Auto) Eos % (Auto) Baso % (Auto) Absolute Neuts (auto) Absolute Lymphs (auto) Total Counted Differential Comment Diff Path Review Reactive Lymphocytes PT INR Specimen Type ART Sample Site R Radial pH 7.44 Bicarbonate Actual 17.3 L POC Total CO2 18 Base Excess -7 L O2 Saturation 100 H O2 % 30 ABG pCO2 25.5 L ABG pO2 161 H Abiel Test NA Respiration Rate 17 O2 Delivery Device Vent Minute Volume 8.00 Vent Mode A-C Tidal Volume 477 POC PEEP 5 Blood Gas Notified Whom ICU Blood Gas Notified Time Sodium 144 Potassium 4.3 Chloride 114 H Carbon Dioxide 22.0 Anion Gap 8 BUN 17 Creatinine 1.68 H Estim Creat Clear Calc 72.66 Est GFR (MDRD) Af Amer 62 Est GFR (MDRD) Non-Af 51 L BUN/Creatinine Ratio 10.1 Glucose 85 Lactic Acid Calcium 7.8 L Phosphorus 4.4 Magnesium 2.1 Total Bilirubin 0.70 AST 294 H ALT 231 H Alkaline Phosphatase 43 L Total Creatine Kinase Troponin I Total Protein 5.7 L Albumin 3.0 L Globulin 2.7 Albumin/Globulin Ratio 1.1 Triglycerides Urine Color Urine Clarity Urine pH Ur Specific [place] Urine Protein Urine Glucose (UA) Urine Ketones Urine Occult Blood Urine Nitrite Urine Bilirubin Urine Urobilinogen Ur Leukocyte Esterase Urine RBC Urine WBC Ur Squamous Epith Cells Urine Bacteria Urine Mucus Urine Opiates Screen Urine Methadone Screen Ur Barbiturates Screen Ur Phencyclidine Scrn Ur Amphetamines Screen U Methamphetamin-MDMA U Benzodiazepines Scrn Urine Cocaine Screen U Cannabinoids Screen Ur Drug Screen Comment Clinical Impression(s) from Imaging Studies Chest X-Ray 07/22/18 13:05 IMPRESSION: The tip of the endotracheal tube is at 9.5 cm proximal to the amanda. Electronically Signed: Miah Sexton MD at 13:56 EST Tel [phone], Service support , KUB X-Ray 07/22/18 13:06 IMPRESSION: The tip of the nasogastric tube is in the proximal portion of the body of the stomach. Slightly dilated small bowel loops in the central abdomen. 4.4 round metallic BB seen overlying the left midabdomen. Electronically Signed: Miah Sexton MD at 13:58 EST Tel [phone], Service support , Brain CT 07/22/18 14:30 IMPRESSION: Normal unenhanced CT scan of the brain. Partial opacification of the left axillary sinus and mucosal thickening of the ethmoid sinuses. Electronically Signed: Miah Sexton MD at 15:30 EST Tel [phone], Service support , Chest X-Ray 07/22/18 15:37 IMPRESSION: Satisfactory position of the support lines and tubes. No acute thoracic pathology. Electronically Signed: Romain Salazar at 16:11 EST Tel , Service support , Medical Necessity - Tobacco Use Smoking Status: Current every day smoker Tobacco Use: Cigarettes Assessment/Plan All Active Problems Cardiac arrest (Acute) Metabolic acidosis, increased anion gap (Acute) RECOMMENDATIONS: 1. Propofol to help with vent synchrony 2. Continue frequent neuro checks 3. Monitor for DI 4. Wean oxygen as tolerated 5. Possibly initiate tube feeds later today 6. Full CODE STATUS IMPRESSIONS: 1. PEA arrest/respiratory failure/metabolic encephalopathy/probable anoxic encephalopathy Patient with 25-45 minutes of pulseless activity. Patient is having what appears to be anoxic injury on physical exam. Still with brainstem reflexes. We will continue to support patient for now. Patient with intermittent hypertension. Will continue to use as needed medications as necessary. Family will be updated during rounds. 2. Methamphetamine abuse Patient is reportedly been using substantial amounts of methamphetamine recently. Patient did use methamphetamine 1 hour prior to presentation. We will continue to support hemodynamics. Will monitor for withdrawal. 3. Bipolar/depression/elevated LFTs/poor history Complicates care, management, recovery and prognosis. All home medications have been discontinued. 4. Possible acute kidney injury Unclear baseline renal function. Patient's creatinine is currently elevated at 1.68. Clinical suspicion for dehydration secondary to significant drug use. Patient is getting rehydrated at this time. Continue to monitor closely. TIME: 37 minutes of critical care time spent addressing patient's PEA arrest, respiratory failure, obtaining history, review of all data and collaboration with care team. (5:45 AM to 7 AM) Code Visit [id number]: [id number] Critical care first hour
--- NOTE | 2018-07-23 07:25 | PN_ITS ---
Subjective: Patient did okay overnight. Patient has continued to have the involuntary muscle movements per respiratory and nursing. Patient continues to have spontaneous respirations. Good urine output has been noted. Patient is not following any commands. Nursing reports waxing and waning neurologic status. General: No apparent distress, Non-Cooperative, - - Not following commands. Better vent synchrony noted. HEENT: Atraumatic, Normocephalic, - - Slightly diaphoretic, but improved. Pinpoint pupils. Oral: Moist Mucosa, No Gingival or Mucosal Lesions/ Ulcerations Neck: Supple, No JVD, No Nodes, Trachea Midline Lungs: Clear to auscultation, Normal air movement, No rhonchi, No wheeze, No rales, - - Symmetric expansion. No dullness to percussion. Cardiovascular: Regular rate, Regular Rhythm, Normal S1, Normal S2, No murmurs, No rub noted, No Gallop Abdomen: Bowel Sounds Present, Soft, Non Tender, Non-Distended Extremities: No clubbing, No cyanosis, No edema, Capillary Refill Less than 3 Seconds Skin: No rashes, No breakdown, - - Multiple tattoos Musculoskeletal: No Tenderness to Palpation of Joints or Extremities Lymphatic: No Cervical, Supraclavicular, or Inguinal Adenopathy Neurological: - - Some posturing noted. Less flexion posturing noted compared to yesterday. Spontaneous respirations when vent is on spontaneous mode. Positive gag and cough reflexes. Psych/Mental Status: Flat Affect Vital Signs Temp Pulse Resp BP Pulse Ox 37.3 C 83 15 160/78 H 100 07/23/18 06:00 07/23/18 06:39 07/23/18 06:39 07/23/18 06:00 07/23/18 06:39 Oxygen Delivery Method Mechanical Ventilator Weight: 83.8 kg Body Mass Index (BMI) 24.2 Intake and Output for Last 24 Hours 07/21/18 07/22/18 07/23/18 23:59 23:59 23:59 Intake Total 1364 / 1364 1001 / 1001 Output Total 750 / 750 250 / 250 Balance 614 / 614 751 / 751 Labs (Last 48 Hours) 07/22/18 07/22/18 07/22/18 13:00 13:00 13:00 WBC 4.6 RBC 4.56 L Hgb 12.8 L Hct 40.8 MCV 89.5 MCH 28.1 MCHC 31.4 L RDW 12.7 RDW Differential 40.9 Plt Count 198 MPV 9.9 Immature Gran % (Auto) 2.200 H Neut % (Auto) 9.9 L Lymph % (Auto) 82.2 H Rooks % (Auto) 4.6 Eos % (Auto) 0.9 Baso % (Auto) 0.2 Absolute Neuts (auto) 0.5 L Absolute Lymphs (auto) 3.79 Total Counted Not Reportable Differential Comment SCANNED Diff Path Review May foll Reactive Lymphocytes 1+ PT 17.4 H INR 1.4 Specimen Type Sample Site pH Bicarbonate Actual POC Total CO2 Base Excess O2 Saturation O2 % ABG pCO2 ABG pO2 Abiel Test Respiration Rate O2 Delivery Device Minute Volume Vent Mode Tidal Volume POC PEEP Blood Gas Notified Whom Blood Gas Notified Time Sodium 143 Potassium 3.8 Chloride 103 Carbon Dioxide 18.0 L Anion Gap 22 H BUN 13 Creatinine 1.97 H Estim Creat Clear Calc 61.96 Est GFR (MDRD) Af Amer 51 L Est GFR (MDRD) Non-Af 42 L BUN/Creatinine Ratio 6.6 L Glucose 307 H Lactic Acid Calcium 8.3 L Phosphorus Magnesium Total Bilirubin 0.30 AST 188 H ALT 233 H Alkaline Phosphatase 46 Total Creatine Kinase Troponin I < 0.015 Total Protein 5.7 L Albumin 3.1 L Globulin 2.6 Albumin/Globulin Ratio 1.2 Triglycerides Urine Color Urine Clarity Urine pH Ur Specific Pandora Urine Protein Urine Glucose (UA) Urine Ketones Urine Occult Blood Urine Nitrite Urine Bilirubin Urine Urobilinogen Ur Leukocyte Esterase Urine RBC Urine WBC Ur Squamous Epith Cells Urine Bacteria Urine Mucus Urine Opiates Screen Urine Methadone Screen Ur Barbiturates Screen Ur Phencyclidine Scrn Ur Amphetamines Screen U Methamphetamin-MDMA U Benzodiazepines Scrn Urine Cocaine Screen U Cannabinoids Screen Ur Drug Screen Comment 07/22/18 07/22/18 07/22/18 13:00 13:10 13:10 WBC RBC Hgb Hct MCV MCH MCHC RDW RDW Differential Plt Count MPV Immature Gran % (Auto) Neut % (Auto) Lymph % (Auto) Rooks % (Auto) Eos % (Auto) Baso % (Auto) Absolute Neuts (auto) Absolute Lymphs (auto) Total Counted Differential Comment Diff Path Review Reactive Lymphocytes PT INR Specimen Type Sample Site pH Bicarbonate Actual POC Total CO2 Base Excess O2 Saturation O2 % ABG pCO2 ABG pO2 Abiel Test Respiration Rate O2 Delivery Device Minute Volume Vent Mode Tidal Volume POC PEEP Blood Gas Notified Whom Blood Gas Notified Time Sodium Potassium Chloride Carbon Dioxide Anion Gap BUN Creatinine Estim Creat Clear Calc Est GFR (MDRD) Af Amer Est GFR (MDRD) Non-Af BUN/Creatinine Ratio Glucose Lactic Acid Calcium Phosphorus Magnesium Total Bilirubin AST ALT Alkaline Phosphatase Total Creatine Kinase 166 Troponin I Total Protein Albumin Globulin Albumin/Globulin Ratio Triglycerides 88 Urine Color Yellow Urine Clarity Clear Urine pH 5.0 Ur Specific Pandora 1.030 Urine Protein 30 H Urine Glucose (UA) Normal Urine Ketones 5 H Urine Occult Blood Negative Urine Nitrite Negative Urine Bilirubin Negative Urine Urobilinogen 1 H Ur Leukocyte Esterase Negative Urine RBC 0 SEEN Urine WBC 0 SEEN Ur Squamous Epith Cells 0 SEEN Urine Bacteria 0 SEEN Urine Mucus 3+ Urine Opiates Screen NEGATIVE Urine Methadone Screen NEGATIVE Ur Barbiturates Screen NEGATIVE Ur Phencyclidine Scrn NEGATIVE Ur Amphetamines Screen POSITIVE H U Methamphetamin-MDMA POSITIVE H U Benzodiazepines Scrn NEGATIVE Urine Cocaine Screen NEGATIVE U Cannabinoids Screen NEGATIVE Ur Drug Screen Comment 07/22/18 07/22/18 07/22/18 13:16 13:33 13:37 WBC RBC Hgb Hct MCV MCH MCHC RDW RDW Differential Plt Count MPV Immature Gran % (Auto) Neut % (Auto) Lymph % (Auto) Rooks % (Auto) Eos % (Auto) Baso % (Auto) Absolute Neuts (auto) Absolute Lymphs (auto) Total Counted Differential Comment Diff Path Review Reactive Lymphocytes PT INR Specimen Type ART ART Sample Site R Radial R Radial pH 7.18 L* 7.18 L* Bicarbonate Actual 11.7 L 11.7 L POC Total CO2 13 13 Base Excess -17 L -17 L O2 Saturation 99 99 O2 % 40 40 ABG pCO2 31.4 L 31.4 L ABG pO2 192 H 187 H Abiel Test NA NA Respiration Rate 14 14 O2 Delivery Device Vent Vent Minute Volume 13.00 13.00 Vent Mode A-C A-C Tidal Volume 500 500 POC PEEP 5 5 Blood Gas Notified Whom ED ED Blood Gas Notified Time 1320 1330 Sodium Potassium Chloride Carbon Dioxide Anion Gap BUN Creatinine Estim Creat Clear Calc Est GFR (MDRD) Af Amer Est GFR (MDRD) Non-Af BUN/Creatinine Ratio Glucose Lactic Acid 14.3 H* Calcium Phosphorus Magnesium Total Bilirubin AST ALT Alkaline Phosphatase Total Creatine Kinase Troponin I Total Protein Albumin Globulin Albumin/Globulin Ratio Triglycerides Urine Color Urine Clarity Urine pH Ur Specific Pandora Urine Protein Urine Glucose (UA) Urine Ketones Urine Occult Blood Urine Nitrite Urine Bilirubin Urine Urobilinogen Ur Leukocyte Esterase Urine RBC Urine WBC Ur Squamous Epith Cells Urine Bacteria Urine Mucus Urine Opiates Screen Urine Methadone Screen Ur Barbiturates Screen Ur Phencyclidine Scrn Ur Amphetamines Screen U Methamphetamin-MDMA U Benzodiazepines Scrn Urine Cocaine Screen U Cannabinoids Screen Ur Drug Screen Comment 07/22/18 07/22/18 07/22/18 15:40 15:40 20:45 WBC RBC Hgb Hct MCV MCH MCHC RDW RDW Differential Plt Count MPV Immature Gran % (Auto) Neut % (Auto) Lymph % (Auto) Rooks % (Auto) Eos % (Auto) Baso % (Auto) Absolute Neuts (auto) Absolute Lymphs (auto) Total Counted Differential Comment Diff Path Review Reactive Lymphocytes PT INR Specimen Type Sample Site pH Bicarbonate Actual POC Total CO2 Base Excess O2 Saturation O2 % ABG pCO2 ABG pO2 Abiel Test Respiration Rate O2 Delivery Device Minute Volume Vent Mode Tidal Volume POC PEEP Blood Gas Notified Whom Blood Gas Notified Time Sodium 145 Potassium 4.8 Chloride 112 H Carbon Dioxide 25.0 Anion Gap 8 BUN 16 Creatinine 1.83 H Estim Creat Clear Calc 66.70 Est GFR (MDRD) Af Amer 56 L Est GFR (MDRD) Non-Af 46 L BUN/Creatinine Ratio 8.7 L Glucose 100 Lactic Acid 4.1 H* 0.9 Calcium 7.5 L Phosphorus Magnesium Total Bilirubin 0.40 AST 327 H ALT 288 H Alkaline Phosphatase 52 Total Creatine Kinase Troponin I Total Protein 6.2 L Albumin 3.4 Globulin 2.8 Albumin/Globulin Ratio 1.2 Triglycerides Urine Color Urine Clarity Urine pH Ur Specific Pandora Urine Protein Urine Glucose (UA) Urine Ketones Urine Occult Blood Urine Nitrite Urine Bilirubin Urine Urobilinogen Ur Leukocyte Esterase Urine RBC Urine WBC Ur Squamous Epith Cells Urine Bacteria Urine Mucus Urine Opiates Screen Urine Methadone Screen Ur Barbiturates Screen Ur Phencyclidine Scrn Ur Amphetamines Screen U Methamphetamin-MDMA U Benzodiazepines Scrn Urine Cocaine Screen U Cannabinoids Screen Ur Drug Screen Comment 07/23/18 07/23/18 07/23/18 04:10 04:10 04:46 WBC 13.0 H RBC 4.37 L Hgb 12.5 L Hct 37.2 L MCV 85.1 MCH 28.6 MCHC 33.6 RDW 12.8 RDW Differential 39.1 Plt Count 200 MPV 9.6 Immature Gran % (Auto) Neut % (Auto) Lymph % (Auto) Rooks % (Auto) Eos % (Auto) Baso % (Auto) Absolute Neuts (auto) Absolute Lymphs (auto) Total Counted Differential Comment Diff Path Review Reactive Lymphocytes PT INR Specimen Type ART Sample Site R Radial pH 7.44 Bicarbonate Actual 17.3 L POC Total CO2 18 Base Excess -7 L O2 Saturation 100 H O2 % 30 ABG pCO2 25.5 L ABG pO2 161 H Abiel Test NA Respiration Rate 17 O2 Delivery Device Vent Minute Volume 8.00 Vent Mode A-C Tidal Volume 477 POC PEEP 5 Blood Gas Notified Whom ICU Blood Gas Notified Time Sodium 144 Potassium 4.3 Chloride 114 H Carbon Dioxide 22.0 Anion Gap 8 BUN 17 Creatinine 1.68 H Estim Creat Clear Calc 72.66 Est GFR (MDRD) Af Amer 62 Est GFR (MDRD) Non-Af 51 L BUN/Creatinine Ratio 10.1 Glucose 85 Lactic Acid Calcium 7.8 L Phosphorus 4.4 Magnesium 2.1 Total Bilirubin 0.70 AST 294 H ALT 231 H Alkaline Phosphatase 43 L Total Creatine Kinase Troponin I Total Protein 5.7 L Albumin 3.0 L Globulin 2.7 Albumin/Globulin Ratio 1.1 Triglycerides Urine Color Urine Clarity Urine pH Ur Specific Pandora Urine Protein Urine Glucose (UA) Urine Ketones Urine Occult Blood Urine Nitrite Urine Bilirubin Urine Urobilinogen Ur Leukocyte Esterase Urine RBC Urine WBC Ur Squamous Epith Cells Urine Bacteria Urine Mucus Urine Opiates Screen Urine Methadone Screen Ur Barbiturates Screen Ur Phencyclidine Scrn Ur Amphetamines Screen U Methamphetamin-MDMA U Benzodiazepines Scrn Urine Cocaine Screen U Cannabinoids Screen Ur Drug Screen Comment Clinical Impression(s) from Imaging Studies Chest X-Ray 07/22/18 13:05 IMPRESSION: The tip of the endotracheal tube is at 9.5 cm proximal to the amanda. Electronically Signed: Miah Sexton MD at 13:56 EST Tel [phone], Service support , KUB X-Ray 07/22/18 13:06 IMPRESSION: The tip of the nasogastric tube is in the proximal portion of the body of the stomach. Slightly dilated small bowel loops in the central abdomen. 4.4 round metallic BB seen overlying the left midabdomen. Electronically Signed: Miah Sexton MD at 13:58 EST Tel [phone], Service support , Brain CT 07/22/18 14:30 IMPRESSION: Normal unenhanced CT scan of the brain. Partial opacification of the left axillary sinus and mucosal thickening of the ethmoid sinuses. Electronically Signed: Miah Sexton MD at 15:30 EST Tel [phone], Service support , Chest X-Ray 07/22/18 15:37 IMPRESSION: Satisfactory position of the support lines and tubes. No acute thoracic pathology. Electronically Signed: Romain Salazar at 16:11 EST Tel , Service support , Medical Necessity - Tobacco Use Smoking Status: Current every day smoker Tobacco Use: Cigarettes Assessment/Plan All Active Problems Cardiac arrest (Acute) Metabolic acidosis, increased anion gap (Acute) RECOMMENDATIONS: 1. Propofol to help with vent synchrony 2. Continue frequent neuro checks 3. Monitor for DI 4. Wean oxygen as tolerated 5. Possibly initiate tube feeds later today 6. Full CODE STATUS IMPRESSIONS: 1. PEA arrest/respiratory failure/metabolic encephalopathy/probable anoxic encephalopathy Patient with 25-45 minutes of pulseless activity. Patient is having what appears to be anoxic injury on physical exam. Still with brainstem reflexes. We will continue to support patient for now. Patient with intermittent hypertension. Will continue to use as needed medications as necessary. Family will be updated during rounds. 2. Methamphetamine abuse Patient is reportedly been using substantial amounts of methamphetamine recently. Patient did use methamphetamine 1 hour prior to presentation. We will continue to support hemodynamics. Will monitor for withdrawal. 3. Bipolar/depression/elevated LFTs/poor history Complicates care, management, recovery and prognosis. All home medications have been discontinued. 4. Possible acute kidney injury Unclear baseline renal function. Patient's creatinine is currently elevated at 1.68. Clinical suspicion for dehydration secondary to significant drug use. Patient is getting rehydrated at this time. Continue to monitor closely. TIME: 37 minutes of critical care time spent addressing patient's PEA arrest, res piratory failure, obtaining history, review of all data and collaboration with care team. (5:45 AM to 7 AM) Code Visit [id number]: [id number] Critical care first hour
--- NOTE | 2018-07-23 08:03 | NURSING ---
unable to complete d/t pt unresponsive
--- NOTE | 2018-07-23 08:07 | PCM.PROGNOTE ---
Patient Problems: Active and Suspected Problems Cardiac arrest (Acute) Metabolic acidosis, increased anion gap (Acute) GERD (gastroesophageal reflux disease) (Suspected) Subjective: Chief complaint: Follow-up after admission for cardiac arrest, acute respiratory failure, lactic acidosis, acute kidney injury and probable anoxic brain injury. Patient seen and examined. No acute events overnight. IV propofol drip held this morning. Patient remained unresponsive. He has no spontaneous eye movement, no response to pain. [place] Coma Scale is 0. He is still having involuntary muscle movements. He is not following any commands. He is afebrile, heart rate stable, blood pressure slightly elevated, on mechanical ventilation. - Physical Exam General: - - Unresponsive, comatosed, [place] Coma Scale of 0. HEENT: Atraumatic, Normocephalic, - - Pupils are constricted, minimal response to light. Oral: Moist Mucosa, No Gingival or Mucosal Lesions/ Ulcerations Neck: Supple, No JVD, Negative Carotid Bruits, Trachea Midline, Thyroid Normal Size and Texture Lungs: Clear to auscultation, No rhonchi, No wheeze, No rales, Diminished Cardiovascular: Regular rate, Regular Rhythm, Normal S1, Normal S2, No murmurs, PMI Normal Abdomen: Bowel Sounds Present, Soft, Non Tender, Non-Distended, No Hepato-splenomegaly Extremities: No clubbing, No cyanosis, No edema Skin: No rashes, No breakdown Lymphatic: No Cervical, Supraclavicular, or Inguinal Adenopathy Neurological: - - Unable to assess, sedated, IV propofol drip just discontinued. No spontaneous eye opening, no response to pain. Psych/Mental Status: - - Unable to assess. Vital Signs Temp Pulse Resp BP Pulse Ox 99.1 F 83 15 160/78 H 100 07/23/18 06:00 07/23/18 06:39 07/23/18 06:39 07/23/18 06:00 07/23/18 06:39 Oxygen Delivery Method Mechanical Ventilator Weight: 184 lb 11.958 oz Body Mass Index (BMI) 24.2 Intake and Output for Last 24 Hours 07/21/18 07/22/18 07/23/18 23:59 23:59 23:59 Intake Total 1364 / 1364 1001 / 1001 Output Total 750 / 750 250 / 250 Balance 614 / 614 751 / 751 Laboratory Tests Past 24 Hrs 07/22/18 07/22/18 07/22/18 13:00 13:00 13:00 WBC 4.6 RBC 4.56 L Hgb 12.8 L Hct 40.8 MCV 89.5 MCH 28.1 MCHC 31.4 L RDW 12.7 RDW Differential 40.9 Plt Count 198 MPV 9.9 Immature Gran % (Auto) 2.200 H Neut % (Auto) 9.9 L Lymph % (Auto) 82.2 H [place] % (Auto) 4.6 Eos % (Auto) 0.9 Baso % (Auto) 0.2 Absolute Neuts (auto) 0.5 L Absolute Lymphs (auto) 3.79 Total Counted Not Reportable Differential Comment SCANNED Diff Path Review May foll Reactive Lymphocytes 1+ PT 17.4 H INR 1.4 Specimen Type Sample Site pH Bicarbonate Actual POC Total CO2 Base Excess O2 Saturation O2 % ABG pCO2 ABG pO2 Abiel Test Respiration Rate O2 Delivery Device Liter Flow Minute Volume Vent Mode Tidal Volume POC PEEP POC Pressure Suppt Pressure High Pressure Low Time High Time Low EPAP IPAP Blood Gas Notified Whom Blood Gas Notified Time Sodium 143 Potassium 3.8 Chloride 103 Carbon Dioxide 18.0 L Anion Gap 22 H BUN 13 Creatinine 1.97 H Estim Creat Clear Calc 61.96 Est GFR (MDRD) Af Amer 51 L Est GFR (MDRD) Non-Af 42 L BUN/Creatinine Ratio 6.6 L Glucose 307 H Lactic Acid Calcium 8.3 L Phosphorus Magnesium Total Bilirubin 0.30 AST 188 H ALT 233 H Alkaline Phosphatase 46 Total Creatine Kinase Troponin I < 0.015 Total Protein 5.7 L Albumin 3.1 L Globulin 2.6 Albumin/Globulin Ratio 1.2 Triglycerides Urine Color Urine Clarity Urine pH Ur Specific [place] Urine Protein Urine Glucose (UA) Urine Ketones Urine Occult Blood Urine Nitrite Urine Bilirubin Urine Urobilinogen Ur Leukocyte Esterase Urine RBC Urine WBC Ur Squamous Epith Cells Urine Bacteria Urine Mucus Urine Opiates Screen Urine Methadone Screen Ur Barbiturates Screen Ur Phencyclidine Scrn Ur Amphetamines Screen U Methamphetamin-MDMA U Benzodiazepines Scrn Urine Cocaine Screen U Cannabinoids Screen Ur Drug Screen Comment 07/22/18 07/22/18 07/22/18 13:00 13:10 13:10 WBC RBC Hgb Hct MCV MCH MCHC RDW RDW Differential Plt Count MPV Immature Gran % (Auto) Neut % (Auto) Lymph % (Auto) [place] % (Auto) Eos % (Auto) Baso % (Auto) Absolute Neuts (auto) Absolute Lymphs (auto) Total Counted Differential Comment Diff Path Review Reactive Lymphocytes PT INR Specimen Type Sample Site pH Bicarbonate Actual POC Total CO2 Base Excess O2 Saturation O2 % ABG pCO2 ABG pO2 Abiel Test Respiration Rate O2 Delivery Device Liter Flow Minute Volume Vent Mode Tidal Volume POC PEEP POC Pressure Suppt Pressure High Pressure Low Time High Time Low EPAP IPAP Blood Gas Notified Whom Blood Gas Notified Time Sodium Potassium Chloride Carbon Dioxide Anion Gap BUN Creatinine Estim Creat Clear Calc Est GFR (MDRD) Af Amer Est GFR (MDRD) Non-Af BUN/Creatinine Ratio Glucose Lactic Acid Calcium Phosphorus Magnesium Total Bilirubin AST ALT Alkaline Phosphatase Total Creatine Kinase 166 Troponin I Total Protein Albumin Globulin Albumin/Globulin Ratio Triglycerides 88 Urine Color Yellow Urine Clarity Clear Urine pH 5.0 Ur Specific [place] 1.030 Urine Protein 30 H Urine Glucose (UA) Normal Urine Ketones 5 H Urine Occult Blood Negative Urine Nitrite Negative Urine Bilirubin Negative Urine Urobilinogen 1 H Ur Leukocyte Esterase Negative Urine RBC 0 SEEN Urine WBC 0 SEEN Ur Squamous Epith Cells 0 SEEN Urine Bacteria 0 SEEN Urine Mucus 3+ Urine Opiates Screen NEGATIVE Urine Methadone Screen NEGATIVE Ur Barbiturates Screen NEGATIVE Ur Phencyclidine Scrn NEGATIVE Ur Amphetamines Screen POSITIVE H U Methamphetamin-MDMA POSITIVE H U Benzodiazepines Scrn NEGATIVE Urine Cocaine Screen NEGATIVE U Cannabinoids Screen NEGATIVE Ur Drug Screen Comment 07/22/18 07/22/18 07/22/18 13:16 13:33 13:37 WBC RBC Hgb Hct MCV MCH MCHC RDW RDW Differential Plt Count MPV Immature Gran % (Auto) Neut % (Auto) Lymph % (Auto) [place] % (Auto) Eos % (Auto) Baso % (Auto) Absolute Neuts (auto) Absolute Lymphs (auto) Total Counted Differential Comment Diff Path Review Reactive Lymphocytes PT INR Specimen Type ART Cancelled Sample Site R Radial Cancelled pH 7.18 L* Cancelled Bicarbonate Actual 11.7 L Cancelled POC Total CO2 13 Cancelled Base Excess -17 L Cancelled O2 Saturation 99 Cancelled O2 % 40 Cancelled ABG pCO2 31.4 L Cancelled ABG pO2 192 H Cancelled Abiel Test NA Cancelled Respiration Rate 14 Cancelled O2 Delivery Device Vent Cancelled Liter Flow Cancelled Minute Volume 13.00 Cancelled Vent Mode A-C Cancelled Tidal Volume 500 Cancelled POC PEEP 5 Cancelled POC Pressure Suppt Cancelled Pressure High Cancelled Pressure Low Cancelled Time High Cancelled Time Low Cancelled EPAP Cancelled IPAP Cancelled Blood Gas Notified Whom ED Cancelled Blood Gas Notified Time 1320 Cancelled Sodium Potassium Chloride Carbon Dioxide Anion Gap BUN Creatinine Estim Creat Clear Calc Est GFR (MDRD) Af Amer Est GFR (MDRD) Non-Af BUN/Creatinine Ratio Glucose Lactic Acid 14.3 H* Calcium Phosphorus Magnesium Total Bilirubin AST ALT Alkaline Phosphatase Total Creatine Kinase Troponin I Total Protein Albumin Globulin Albumin/Globulin Ratio Triglycerides Urine Color Urine Clarity Urine pH Ur Specific [place] Urine Protein Urine Glucose (UA) Urine Ketones Urine Occult Blood Urine Nitrite Urine Bilirubin Urine Urobilinogen Ur Leukocyte Esterase Urine RBC Urine WBC Ur Squamous Epith Cells Urine Bacteria Urine Mucus Urine Opiates Screen Urine Methadone Screen Ur Barbiturates Screen Ur Phencyclidine Scrn Ur Amphetamines Screen U Methamphetamin-MDMA U Benzodiazepines Scrn Urine Cocaine Screen U Cannabinoids Screen Ur Drug Screen Comment 07/22/18 07/22/18 07/22/18 15:40 15:40 20:45 WBC RBC Hgb Hct MCV MCH MCHC RDW RDW Differential Plt Count MPV Immature Gran % (Auto) Neut % (Auto) Lymph % (Auto) [place] % (Auto) Eos % (Auto) Baso % (Auto) Absolute Neuts (auto) Absolute Lymphs (auto) Total Counted Differential Comment Diff Path Review Reactive Lymphocytes PT INR Specimen Type Sample Site pH Bicarbonate Actual POC Total CO2 Base Excess O2 Saturation O2 % ABG pCO2 ABG pO2 Abiel Test Respiration Rate O2 Delivery Device Liter Flow Minute Volume Vent Mode Tidal Volume POC PEEP POC Pressure Suppt Pressure High Pressure Low Time High Time Low EPAP IPAP Blood Gas Notified Whom Blood Gas Notified Time Sodium 145 Potassium 4.8 Chloride 112 H Carbon Dioxide 25.0 Anion Gap 8 BUN 16 Creatinine 1.83 H Estim Creat Clear Calc 66.70 Est GFR (MDRD) Af Amer 56 L Est GFR (MDRD) Non-Af 46 L BUN/Creatinine Ratio 8.7 L Glucose 100 Lactic Acid 4.1 H* 0.9 Calcium 7.5 L Phosphorus Magnesium Total Bilirubin 0.40 AST 327 H ALT 288 H Alkaline Phosphatase 52 Total Creatine Kinase Troponin I Total Protein 6.2 L Albumin 3.4 Globulin 2.8 Albumin/Globulin Ratio 1.2 Triglycerides Urine Color Urine Clarity Urine pH Ur Specific [place] Urine Protein Urine Glucose (UA) Urine Ketones Urine Occult Blood Urine Nitrite Urine Bilirubin Urine Urobilinogen Ur Leukocyte Esterase Urine RBC Urine WBC Ur Squamous Epith Cells Urine Bacteria Urine Mucus Urine Opiates Screen Urine Methadone Screen Ur Barbiturates Screen Ur Phencyclidine Scrn Ur Amphetamines Screen U Methamphetamin-MDMA U Benzodiazepines Scrn Urine Cocaine Screen U Cannabinoids Screen Ur Drug Screen Comment 07/23/18 07/23/18 07/23/18 04:10 04:10 04:46 WBC 13.0 H RBC 4.37 L Hgb 12.5 L Hct 37.2 L MCV 85.1 MCH 28.6 MCHC 33.6 RDW 12.8 RDW Differential 39.1 Plt Count 200 MPV 9.6 Immature Gran % (Auto) Neut % (Auto) Lymph % (Auto) [place] % (Auto) Eos % (Auto) Baso % (Auto) Absolute Neuts (auto) Absolute Lymphs (auto) Total Counted Differential Comment Diff Path Review Reactive Lymphocytes PT INR Specimen Type ART Sample Site R Radial pH 7.44 Bicarbonate Actual 17.3 L POC Total CO2 18 Base Excess -7 L O2 Saturation 100 H O2 % 30 ABG pCO2 25.5 L ABG pO2 161 H Abiel Test NA Respiration Rate 17 O2 Delivery Device Vent Liter Flow Minute Volume 8.00 Vent Mode A-C Tidal Volume 477 POC PEEP 5 POC Pressure Suppt Pressure High Pressure Low Time High Time Low EPAP IPAP Blood Gas Notified Whom ICU MD Blood Gas Notified Time Sodium 144 Potassium 4.3 Chloride 114 H Carbon Dioxide 22.0 Anion Gap 8 BUN 17 Creatinine 1.68 H Estim Creat Clear Calc 72.66 Est GFR (MDRD) Af Amer 62 Est GFR (MDRD) Non-Af 51 L BUN/Creatinine Ratio 10.1 Glucose 85 Lactic Acid Calcium 7.8 L Phosphorus 4.4 Magnesium 2.1 Total Bilirubin 0.70 AST 294 H ALT 231 H Alkaline Phosphatase 43 L Total Creatine Kinase Troponin I Total Protein 5.7 L Albumin 3.0 L Globulin 2.7 Albumin/Globulin Ratio 1.1 Triglycerides Urine Color Urine Clarity Urine pH Ur Specific [place] Urine Protein Urine Glucose (UA) Urine Ketones Urine Occult Blood Urine Nitrite Urine Bilirubin Urine Urobilinogen Ur Leukocyte Esterase Urine RBC Urine WBC Ur Squamous Epith Cells Urine Bacteria Urine Mucus Urine Opiates Screen Urine Methadone Screen Ur Barbiturates Screen Ur Phencyclidine Scrn Ur Amphetamines Screen U Methamphetamin-MDMA U Benzodiazepines Scrn Urine Cocaine Screen U Cannabinoids Screen Ur Drug Screen Comment Clinical Impression(s) from Imaging Studies Chest X-Ray 07/22/18 13:05 IMPRESSION: The tip of the endotracheal tube is at 9.5 cm proximal to the amanda. Electronically Signed: Miah Sexton MD at 13:56 EST Tel [phone], Service support , KUB X-Ray 07/22/18 13:06 IMPRESSION: The tip of the nasogastric tube is in the proximal portion of the body of the stomach. Slightly dilated small bowel loops in the central abdomen. 4.4 round metallic BB seen overlying the left midabdomen. Electronically Signed: Miah Sexton MD at 13:58 EST Tel [phone], Service support , Brain CT 07/22/18 14:30 IMPRESSION: Normal unenhanced CT scan of the brain. Partial opacification of the left axillary sinus and mucosal thickening of the ethmoid sinuses. Electronically Signed: Miah Sexton MD at 15:30 EST Tel [phone], Service support , Chest X-Ray 07/22/18 15:37 IMPRESSION: Satisfactory position of the support lines and tubes. No acute thoracic pathology. Electronically Signed: Romain Salazar, at 16:11 EST Tel , Service support , Medical Necessity - Tobacco Use Smoking Status: Current every day smoker Tobacco Use: Cigarettes Assessment/Plan All Active Problems Cardiac arrest (Acute) Metabolic acidosis, increased anion gap (Acute) This is a 32 years old male patient presented to the emergency room because of cardiac arrest which is probably due to drug overdose, found to have metabolic acidosis secondary to cardiac arrest prolonged and hypoperfusion, acute kidney injury, elevated LFT and probable anoxic brain injury. #1 cardiac arrest/acute respiratory failure: It was PEA cardiac arrest. Unclear etiology, could be due to methamphetamine overdose. Patient was on mechanical ventilation. He has no response to pain, no spontaneous eye opening, a [place] Coma Scale of 0. He is on propofol and fentanyl for sedation, the end of this morning. Blood pressure and heart rate are maintained on IV fluids. EKG revealed no acute ischemic changes. Troponin was negative. Cardiology and intensive care are on the case. Plan to continue same treatment. #2 lactic acidosis: Likely due to tissue hypoperfusion secondary to cardiac arrest. At this time, blood pressure is maintained on IV fluids. No vasopressors needed. Lactic acid is back to normal. Patient has been afebrile. Plan as above. #3 acute kidney injury: Again, attributed to tissue hypoperfusion secondary to cardiac arrest. Unknown baseline kidney function. Admission creatinine was 1.83, coming down to 1.68 today. Plan to continue IV fluids, repeat BMP tomorrow morning. #4 drug abuse/drug overdose: Reportedly, she has been using methamphetamines heavily recently. Urine drug screen was positive for amphetamines and methamphetamines. #5 probable anoxic brain injury: Secondary to cardiac arrest and prolonged CPR. At this time, patient is off sedation, pupils are constricted, minimal reaction to light. He has no motor response, no response to painful stimuli, no spontaneous eye opening. Repeat CT scan brain done this morning and revealed probable small acute or subacute right basal ganglia infarct. May need to do MRI brain when patient is more stable. #6 elevated LFT: Again, secondary to tissue hypoperfusion. LFTs was elevated and the liver transaminases and the are trending down. Bilirubin and alkaline phosphatase are normal. #6 schizophrenia/bipolar disorders: Medication on hold. #7 GERD: He is on IV Protonix. #8 DVT prophylaxis: Subcu heparin. This note was generated with [employer] dictation software. It may contain incorrect words, spelling, and punctuation that were not noted in checking the note before signing. Code Visit Inpatient E&M: 67484 Subs Hosp L3
--- NOTE | 2018-07-23 09:26 | CM.UR ---
Participated in interdisciplinary rounds this am. Patient is becoming less responsive and remains on vent at this time. Case management will continue to follow patient. Neida Ramos RN, CCM.
--- NOTE | 2018-07-23 09:31 | CT_ITS ---
STUDY: CT BRAIN WITHOUT CONTRAST REASON FOR EXAM: Male, 32 years old. Altered mental status. Drug overdose. RADIATION DOSAGE (If Supplied By Facility): CTDIvol = ( 60.81 ) mGy, DLP = ( 998.67 ) mGycm TECHNIQUE: Transaxial CT imaging of the brain was performed without administration of intravenous contrast material. Individualized dose optimization techniques were used for this CT. COMPARISON: 07/22/2018. FINDINGS: Normal soft tissue structures. Normal calvarium. Suggestion of a subtle 1.3 cm area of decreased attenuation in the right anterior maldonado radiata, axial image 19. Not definitely present previously and most consistent with a small lacunar infarct. Confirmation with MRI could be performed. Normal size ventricles and extra-axial spaces for the patient's age. Otherwise normal white matter tracts of the cerebral hemispheres. Normal basal ganglia and thalami. Normal brainstem. Normal cerebellum. There is no intracranial hemorrhage. There is mucoperiosteal inflammatory disease of the paranasal sinuses consistent with mild chronic sinusitis. CT/Brain/Head without Contrast IMPRESSION: Probable small acute or subacute nonhemorrhagic right basal ganglia and this could be confirmed with MRI. Otherwise negative. Electronically Signed: Austyn Fair MD at 10:31 EST , Service support ,
--- NOTE | 2018-07-23 09:45 | NURSING ---
to CT on monitor, STUDENT SERVICES VICE PRESIDENT and 2 RTs in attendance
--- NOTE | 2018-07-23 10:15 | NURSING ---
return from CT
[2018-07-23] MEDS: Aspirin 325 MG Tablet PO (10:30)
[2018-07-23] MEDS: Chlorhexidine 15 ML PO ×2 (10:34→21:26)
--- NOTE | 2018-07-23 11:20 | PN.CARD_ITS ---
Subjectve: Remains on ventilator. Not responding to commands Objective: Vital Signs Temp Pulse Resp BP Pulse Ox 99.1 F 98 21 H 160/78 H 100 07/23/18 06:00 07/23/18 10:15 07/23/18 10:15 07/23/18 06:00 07/23/18 10:15 Oxygen Delivery Method Mechanical Ventilator Weight: 83.8 kg Body Mass Index (BMI) 24.2 Intake and Output for Last 24 Hours 07/21/18 07/22/18 07/23/18 23:59 23:59 23:59 Intake Total 1364 / 1364 1031 / 1031 Output Total 750 / 750 250 / 250 Balance 614 / 614 781 / 781 General: - - On ventilator. Not responding to commands. Neck: Supple Lungs: Clear to auscultation Cardiovascular: Regular Rhythm, Normal S1, Normal S2 Abdomen: Soft Extremities: No edema Neurological: - - Not responding to commands. 07/22/18 13:00: WBC 4.6, RBC 4.56 L, Hgb 12.8 L, Hct 40.8, MCV 89.5, MCH 28.1, MCHC 31.4 L, RDW 12.7, RDW Differential 40.9, Plt Count 198, MPV 9.9, Immature Gran % (Auto) 2.200 H, Neut % (Auto) 9.9 L, Lymph % (Auto) 82.2 H, [place] % (Auto) 4.6, Eos % (Auto) 0.9, Baso % (Auto) 0.2, Absolute Neuts (auto) 0.5 L, Total Counted Not Reportable 07/22/18 13:00: PT 17.4 H, INR 1.4 07/22/18 13:00: Sodium 143, Potassium 3.8, Chloride 103, Carbon Dioxide 18.0 L, Anion Gap 22 H, BUN 13, Creatinine 1.97 H, Est GFR (MDRD) Af Amer 51 L, Est GFR (MDRD) Non-Af 42 L, BUN/Creatinine Ratio 6.6 L, Glucose 307 H, Calcium 8.3 L, Total Bilirubin 0.30, Troponin I < 0.015 07/22/18 13:00: Triglycerides 88 07/22/18 13:10: Urine Color Yellow, Urine Clarity Clear, Urine pH 5.0, Ur Specific [place] 1.030, Urine Protein 30 H, Urine Glucose (UA) Normal, Urine Ketones 5 H, Urine Occult Blood Negative, Urine Nitrite Negative, Urine Bilirubin Negative, Urine Urobilinogen 1 H, Ur Leukocyte Esterase Negative, Urine RBC 0 SEEN, Urine WBC 0 SEEN 07/22/18 13:16: Lactic Acid 14.3 H* 07/22/18 13:33: pH 7.18 L*, Bicarbonate Actual 11.7 L, POC Total CO2 13, Base Excess -17 L, O2 Saturation 99, ABG pCO2 31.4 L, ABG pO2 192 H, Abiel Test NA 07/22/18 13:37: pH Cancelled, Bicarbonate Actual Cancelled, POC Total CO2 Cancelled, Base Excess Cancelled, O2 Saturation Cancelled, ABG pCO2 Cancelled, ABG pO2 Cancelled, Abiel Test Cancelled 07/22/18 15:40: Lactic Acid 4.1 H* 07/22/18 15:40: Sodium 145, Potassium 4.8, Chloride 112 H, Carbon Dioxide 25.0, Anion Gap 8, BUN 16, Creatinine 1.83 H, Est GFR (MDRD) Af Amer 56 L, Est GFR (MDRD) Non-Af 46 L, BUN/Creatinine Ratio 8.7 L, Glucose 100, Calcium 7.5 L, Total Bilirubin 0.40 07/22/18 20:45: Lactic Acid 0.9 07/23/18 04:10: WBC 13.0 H, RBC 4.37 L, Hgb 12.5 L, Hct 37.2 L, MCV 85.1, MCH 28.6, MCHC 33.6, RDW 12.8, RDW Differential 39.1, Plt Count 200, MPV 9.6 07/23/18 04:10: Sodium 144, Potassium 4.3, Chloride 114 H, Carbon Dioxide 22.0, Anion Gap 8, BUN 17, Creatinine 1.68 H, Est GFR (MDRD) Af Amer 62, Est GFR (MDRD) Non-Af 51 L, BUN/Creatinine Ratio 10.1, Glucose 85, Calcium 7.8 L, Phosphorus 4.4, Magnesium 2.1, Total Bilirubin 0.70 07/23/18 04:46: pH 7.44, Bicarbonate Actual 17.3 L, POC Total CO2 18, Base Excess -7 L, O2 Saturation 100 H, ABG pCO2 25.5 L, ABG pO2 161 H, Abiel Test NA Rhythm: Normal sinus rhythm EKG: ECHO: Ejection fraction 50%. Stress Test: Cardiac Cath: PCI: CT Surgery: Holter monitor: EPS: PPM: CXR: Chest CT Scan: Medical Necessity - Tobacco Use Smoking Status: Current every day smoker Tobacco Use: Cigarettes Assessment/Plan 1. PEA cardiac arrest. Possible ischemic encephalopathy. Follow as per critical care 2. Normal LV systolic function on echocardiogram. Doubt primary cardiac event. However if and when patient regains neurological function, then will need some sort of ischemic workup 3. Vent dependent respiratory failure. 4. History of drug abuse 5. History of EtOH abuse No further cardiac input at this time. Will continue to see prn. Please call if needed
[2018-07-23 22:15] LABS: Anion Gap 9 (5-15); BUN 17 mg/dL (7-18); BUN/Creat Ratio 12.8 RATIO (10-20); Calcium,Total 7.8 mg/dL (8.5-10.1); Chloride 115 mmol/L (98-107); Creatinine, Serum 1.33 mg/dL (0.70-1.30); EST Glomerular Filtration Rate 67 mL/min (>60); Est Glom Filt Rate - Afr Amer 81 mL/min (>60); Estimated Creatinine Clearance 91.78 ml/min; Glucose 88 mg/dL (74-106); Potassium 4.9 mmol/L (3.5-5.1); Sodium Level 144 mmol/L (136-145)
[2018-07-23] MEDS: Acetaminophen 650 MG/20 ML UDC GT (23:06)
[2018-07-24] VITALS (40 sets, daily range): BP systolic 113–178; BP diastolic 48–124; PULSE 53–89; RESP 12–36; TEMP 37.6–40.5; O2SAT 94–100
[2018-07-24] MEDS: 0.9% Normal Saline 1,000 ML 150 ML IV ×3 (04:23→19:05)
[2018-07-24] MEDS: CHLORHEXIDINE GLUC 2% CLOTH 1 EACH TOWELETTE TOPICAL ×2 (04:23→22:07)
[2018-07-24] MEDS: Acetaminophen 650 MG/20 ML UDC GT (04:43)
[2018-07-24 06:44] LABS: Anion Gap 10 (5-15); BUN 16 mg/dL (7-18); BUN/Creat Ratio 11.3 RATIO (10-20); Chloride 115 mmol/L (98-107); Creatinine, Serum 1.42 mg/dL (0.70-1.30); EST Glomerular Filtration Rate 62 mL/min (>60); Est Glom Filt Rate - Afr Amer 75 mL/min (>60); Estimated Creatinine Clearance 85.96 ml/min; Glucose 79 mg/dL (74-106); Potassium 4.4 mmol/L (3.5-5.1); Sodium Level 144 mmol/L (136-145)
--- NOTE | 2018-07-24 07:34 | PN_ITS ---
Subjective: Patient did okay overnight. Patient continues to have no involuntary movements noted. Patient did spike a fever overnight, but remained hemodynamically stable. Urine output has remained in acceptable range. Patient continues to have a cough and gag reflexes. Patient also with spontaneous respirations. Patient has remained off of propofol therapy since yesterday morning. General: No apparent distress, Lethargic, Non-Cooperative HEENT: Atraumatic, Normocephalic, - - Some scleral injection and chemosis of right eye Oral: Moist Mucosa, No Gingival or Mucosal Lesions/ Ulcerations Neck: Supple, No JVD, No Nodes, Trachea Midline Lungs: Clear to auscultation, Normal air movement, No rhonchi, No wheeze, No rales, - - Symmetric expansion. No dullness to percussion. Good vent synchrony noted. Cardiovascular: Regular rate, Regular Rhythm, Normal S1, Normal S2, No murmurs, No rub noted, No Gallop Abdomen: Bowel Sounds Present, Soft, Non Tender, Non-Distended Extremities: No clubbing, No cyanosis, Edema - 1+ Skin: No rashes, No breakdown Musculoskeletal: No Tenderness to Palpation of Joints or Extremities Lymphatic: No Cervical, Supraclavicular, or Inguinal Adenopathy Neurological: - - Grossly unchanged compared to previous. Intermittent retraction to painful stimulus. Still with cough, gag, corneal and spontaneous respiration reflexes. No purposeful movements are appreciated. Psych/Mental Status: Flat Affect Vital Signs Temp Pulse Resp BP Pulse Ox 39.1 C H 61 19 H 148/85 H 100 07/24/18 06:00 07/24/18 06:45 07/24/18 06:45 07/24/18 06:00 07/24/18 06:45 Oxygen Delivery Method Mechanical Ventilator Weight: 86.9 kg Body Mass Index (BMI) 24.2 Intake and Output for Last 24 Hours 07/22/18 07/23/18 07/24/18 23:59 23:59 23:59 Intake Total 1364 / 1364 2995 / 2995 1632 / 1632 Output Total 750 / 750 545 / 545 700 / 700 Balance 614 / 614 2450 / 2450 932 / 932 Labs (Last 48 Hours) 07/22/18 07/22/18 07/22/18 13:00 13:00 13:00 WBC 4.6 RBC 4.56 L Hgb 12.8 L Hct 40.8 MCV 89.5 MCH 28.1 MCHC 31.4 L RDW 12.7 RDW Differential 40.9 Plt Count 198 MPV 9.9 Immature Gran % (Auto) 2.200 H Neut % (Auto) 9.9 L Lymph % (Auto) 82.2 H [place] % (Auto) 4.6 Eos % (Auto) 0.9 Baso % (Auto) 0.2 Absolute Neuts (auto) 0.5 L Absolute Lymphs (auto) 3.79 Total Counted Not Reportable Differential Comment SCANNED Diff Path Review May foll Reactive Lymphocytes 1+ PT 17.4 H INR 1.4 Specimen Type Sample Site pH Bicarbonate Actual POC Total CO2 Base Excess O2 Saturation O2 % ABG pCO2 ABG pO2 Abiel Test Respiration Rate O2 Delivery Device Liter Flow Minute Volume Vent Mode Tidal Volume POC PEEP POC Pressure Suppt Pressure High Pressure Low Time High Time Low EPAP IPAP Blood Gas Notified Whom Blood Gas Notified Time Sodium 143 Potassium 3.8 Chloride 103 Carbon Dioxide 18.0 L Anion Gap 22 H BUN 13 Creatinine 1.97 H Estim Creat Clear Calc 61.96 Est GFR (MDRD) Af Amer 51 L Est GFR (MDRD) Non-Af 42 L BUN/Creatinine Ratio 6.6 L Glucose 307 H Lactic Acid Calcium 8.3 L Phosphorus Magnesium Total Bilirubin 0.30 AST 188 H ALT 233 H Alkaline Phosphatase 46 Total Creatine Kinase Troponin I < 0.015 Total Protein 5.7 L Albumin 3.1 L Globulin 2.6 Albumin/Globulin Ratio 1.2 Triglycerides Urine Color Urine Clarity Urine pH Ur Specific [place] Urine Protein Urine Glucose (UA) Urine Ketones Urine Occult Blood Urine Nitrite Urine Bilirubin Urine Urobilinogen Ur Leukocyte Esterase Urine RBC Urine WBC Ur Squamous Epith Cells Urine Bacteria Urine Mucus Urine Opiates Screen Urine Methadone Screen Ur Barbiturates Screen Ur Phencyclidine Scrn Ur Amphetamines Screen U Methamphetamin-MDMA U Benzodiazepines Scrn Urine Cocaine Screen U Cannabinoids Screen Ur Drug Screen Comment 07/22/18 07/22/18 07/22/18 13:00 13:10 13:10 WBC RBC Hgb Hct MCV MCH MCHC RDW RDW Differential Plt Count MPV Immature Gran % (Auto) Neut % (Auto) Lymph % (Auto) [place] % (Auto) Eos % (Auto) Baso % (Auto) Absolute Neuts (auto) Absolute Lymphs (auto) Total Counted Differential Comment Diff Path Review Reactive Lymphocytes PT INR Specimen Type Sample Site pH Bicarbonate Actual POC Total CO2 Base Excess O2 Saturation O2 % ABG pCO2 ABG pO2 Abiel Test Respiration Rate O2 Delivery Device Liter Flow Minute Volume Vent Mode Tidal Volume POC PEEP POC Pressure Suppt Pressure High Pressure Low Time High Time Low EPAP IPAP Blood Gas Notified Whom Blood Gas Notified Time Sodium Potassium Chloride Carbon Dioxide Anion Gap BUN Creatinine Estim Creat Clear Calc Est GFR (MDRD) Af Amer Est GFR (MDRD) Non-Af BUN/Creatinine Ratio Glucose Lactic Acid Calcium Phosphorus Magnesium Total Bilirubin AST ALT Alkaline Phosphatase Total Creatine Kinase 166 Troponin I Total Protein Albumin Globulin Albumin/Globulin Ratio Triglycerides 88 Urine Color Yellow Urine Clarity Clear Urine pH 5.0 Ur Specific [place] 1.030 Urine Protein 30 H Urine Glucose (UA) Normal Urine Ketones 5 H Urine Occult Blood Negative Urine Nitrite Negative Urine Bilirubin Negative Urine Urobilinogen 1 H Ur Leukocyte Esterase Negative Urine RBC 0 SEEN Urine WBC 0 SEEN Ur Squamous Epith Cells 0 SEEN Urine Bacteria 0 SEEN Urine Mucus 3+ Urine Opiates Screen NEGATIVE Urine Methadone Screen NEGATIVE Ur Barbiturates Screen NEGATIVE Ur Phencyclidine Scrn NEGATIVE Ur Amphetamines Screen POSITIVE H U Methamphetamin-MDMA POSITIVE H U Benzodiazepines Scrn NEGATIVE Urine Cocaine Screen NEGATIVE U Cannabinoids Screen NEGATIVE Ur Drug Screen Comment 07/22/18 07/22/18 07/22/18 13:16 13:33 13:37 WBC RBC Hgb Hct MCV MCH MCHC RDW RDW Differential Plt Count MPV Immature Gran % (Auto) Neut % (Auto) Lymph % (Auto) [place] % (Auto) Eos % (Auto) Baso % (Auto) Absolute Neuts (auto) Absolute Lymphs (auto) Total Counted Differential Comment Diff Path Review Reactive Lymphocytes PT INR Specimen Type ART Cancelled Sample Site R Radial Cancelled pH 7.18 L* Cancelled Bicarbonate Actual 11.7 L Cancelled POC Total CO2 13 Cancelled Base Excess -17 L Cancelled O2 Saturation 99 Cancelled O2 % 40 Cancelled ABG pCO2 31.4 L Cancelled ABG pO2 192 H Cancelled Abiel Test NA Cancelled Respiration Rate 14 Cancelled O2 Delivery Device Vent Cancelled Liter Flow Cancelled Minute Volume 13.00 Cancelled Vent Mode A-C Cancelled Tidal Volume 500 Cancelled POC PEEP 5 Cancelled POC Pressure Suppt Cancelled Pressure High Cancelled Pressure Low Cancelled Time High Cancelled Time Low Cancelled EPAP Cancelled IPAP Cancelled Blood Gas Notified Whom ED Cancelled Blood Gas Notified Time 1320 Cancelled Sodium Potassium Chloride Carbon Dioxide Anion Gap BUN Creatinine Estim Creat Clear Calc Est GFR (MDRD) Af Amer Est GFR (MDRD) Non-Af BUN/Creatinine Ratio Glucose Lactic Acid 14.3 H* Calcium Phosphorus Magnesium Total Bilirubin AST ALT Alkaline Phosphatase Total Creatine Kinase Troponin I Total Protein Albumin Globulin Albumin/Globulin Ratio Triglycerides Urine Color Urine Clarity Urine pH Ur Specific [place] Urine Protein Urine Glucose (UA) Urine Ketones Urine Occult Blood Urine Nitrite Urine Bilirubin Urine Urobilinogen Ur Leukocyte Esterase Urine RBC Urine WBC Ur Squamous Epith Cells Urine Bacteria Urine Mucus Urine Opiates Screen Urine Methadone Screen Ur Barbiturates Screen Ur Phencyclidine Scrn Ur Amphetamines Screen U Methamphetamin-MDMA U Benzodiazepines Scrn Urine Cocaine Screen U Cannabinoids Screen Ur Drug Screen Comment 07/22/18 07/22/18 07/22/18 15:40 15:40 20:45 WBC RBC Hgb Hct MCV MCH MCHC RDW RDW Differential Plt Count MPV Immature Gran % (Auto) Neut % (Auto) Lymph % (Auto) [place] % (Auto) Eos % (Auto) Baso % (Auto) Absolute Neuts (auto) Absolute Lymphs (auto) Total Counted Differential Comment Diff Path Review Reactive Lymphocytes PT INR Specimen Type Sample Site pH Bicarbonate Actual POC Total CO2 Base Excess O2 Saturation O2 % ABG pCO2 ABG pO2 Abiel Test Respiration Rate O2 Delivery Device Liter Flow Minute Volume Vent Mode Tidal Volume POC PEEP POC Pressure Suppt Pressure High Pressure Low Time High Time Low EPAP IPAP Blood Gas Notified Whom Blood Gas Notified Time Sodium 145 Potassium 4.8 Chloride 112 H Carbon Dioxide 25.0 Anion Gap 8 BUN 16 Creatinine 1.83 H Estim Creat Clear Calc 66.70 Est GFR (MDRD) Af Amer 56 L Est GFR (MDRD) Non-Af 46 L BUN/Creatinine Ratio 8.7 L Glucose 100 Lactic Acid 4.1 H* 0.9 Calcium 7.5 L Phosphorus Magnesium Total Bilirubin 0.40 AST 327 H ALT 288 H Alkaline Phosphatase 52 Total Creatine Kinase Troponin I Total Protein 6.2 L Albumin 3.4 Globulin 2.8 Albumin/Globulin Ratio 1.2 Triglycerides Urine Color Urine Clarity Urine pH Ur Specific [place] Urine Protein Urine Glucose (UA) Urine Ketones Urine Occult Blood Urine Nitrite Urine Bilirubin Urine Urobilinogen Ur Leukocyte Esterase Urine RBC Urine WBC Ur Squamous Epith Cells Urine Bacteria Urine Mucus Urine Opiates Screen Urine Methadone Screen Ur Barbiturates Screen Ur Phencyclidine Scrn Ur Amphetamines Screen U Methamphetamin-MDMA U Benzodiazepines Scrn Urine Cocaine Screen U Cannabinoids Screen Ur Drug Screen Comment 07/23/18 07/23/18 07/23/18 04:10 04:10 04:46 WBC 13.0 H RBC 4.37 L Hgb 12.5 L Hct 37.2 L MCV 85.1 MCH 28.6 MCHC 33.6 RDW 12.8 RDW Differential 39.1 Plt Count 200 MPV 9.6 Immature Gran % (Auto) Neut % (Auto) Lymph % (Auto) [place] % (Auto) Eos % (Auto) Baso % (Auto) Absolute Neuts (auto) Absolute Lymphs (auto) Total Counted Differential Comment Diff Path Review Reactive Lymphocytes PT INR Specimen Type ART Sample Site R Radial pH 7.44 Bicarbonate Actual 17.3 L POC Total CO2 18 Base Excess -7 L O2 Saturation 100 H O2 % 30 ABG pCO2 25.5 L ABG pO2 161 H Abiel Test NA Respiration Rate 17 O2 Delivery Device Vent Liter Flow Minute Volume 8.00 Vent Mode A-C Tidal Volume 477 POC PEEP 5 POC Pressure Suppt Pressure High Pressure Low Time High Time Low EPAP IPAP Blood Gas Notified Whom ICU MD Blood Gas Notified Time Sodium 144 Potassium 4.3 Chloride 114 H Carbon Dioxide 22.0 Anion Gap 8 BUN 17 Creatinine 1.68 H Estim Creat Clear Calc 72.66 Est GFR (MDRD) Af Amer 62 Est GFR (MDRD) Non-Af 51 L BUN/Creatinine Ratio 10.1 Glucose 85 Lactic Acid Calcium 7.8 L Phosphorus 4.4 Magnesium 2.1 Total Bilirubin 0.70 AST 294 H ALT 231 H Alkaline Phosphatase 43 L Total Creatine Kinase Troponin I Total Protein 5.7 L Albumin 3.0 L Globulin 2.7 Albumin/Globulin Ratio 1.1 Triglycerides Urine Color Urine Clarity Urine pH Ur Specific [place] Urine Protein Urine Glucose (UA) Urine Ketones Urine Occult Blood Urine Nitrite Urine Bilirubin Urine Urobilinogen Ur Leukocyte Esterase Urine RBC Urine WBC Ur Squamous Epith Cells Urine Bacteria Urine Mucus Urine Opiates Screen Urine Methadone Screen Ur Barbiturates Screen Ur Phencyclidine Scrn Ur Amphetamines Screen U Methamphetamin-MDMA U Benzodiazepines Scrn Urine Cocaine Screen U Cannabinoids Screen Ur Drug Screen Comment 07/23/18 07/24/18 21:40 06:20 WBC RBC Hgb Hct MCV MCH MCHC RDW RDW Differential Plt Count MPV Immature Gran % (Auto) Neut % (Auto) Lymph % (Auto) [place] % (Auto) Eos % (Auto) Baso % (Auto) Absolute Neuts (auto) Absolute Lymphs (auto) Total Counted Differential Comment Diff Path Review Reactive Lymphocytes PT INR Specimen Type Sample Site pH Bicarbonate Actual POC Total CO2 Base Excess O2 Saturation O2 % ABG pCO2 ABG pO2 Abiel Test Respiration Rate O2 Delivery Device Liter Flow Minute Volume Vent Mode Tidal Volume POC PEEP POC Pressure Suppt Pressure High Pressure Low Time High Time Low EPAP IPAP Blood Gas Notified Whom Blood Gas Notified Time Sodium 144 144 Potassium 4.9 4.4 Chloride 115 H 115 H Carbon Dioxide 20.0 L 19.0 L Anion Gap 9 10 BUN 17 16 Creatinine 1.33 H 1.42 H Estim Creat Clear Calc 91.78 85.96 Est GFR (MDRD) Af Amer 81 75 Est GFR (MDRD) Non-Af 67 62 BUN/Creatinine Ratio 12.8 11.3 Glucose 88 79 Lactic Acid Calcium 7.8 L 8.0 L Phosphorus Magnesium Total Bilirubin AST ALT Alkaline Phosphatase Total Creatine Kinase Troponin I Total Protein Albumin Globulin Albumin/Globulin Ratio Triglycerides Urine Color Urine Clarity Urine pH Ur Specific [place] Urine Protein Urine Glucose (UA) Urine Ketones Urine Occult Blood Urine Nitrite Urine Bilirubin Urine Urobilinogen Ur Leukocyte Esterase Urine RBC Urine WBC Ur Squamous Epith Cells Urine Bacteria Urine Mucus Urine Opiates Screen Urine Methadone Screen Ur Barbiturates Screen Ur Phencyclidine Scrn Ur Amphetamines Screen U Methamphetamin-MDMA U Benzodiazepines Scrn Urine Cocaine Screen U Cannabinoids Screen Ur Drug Screen Comment Microbiology 07/22/18 16:00 Sputum, Induced/Lukens Gram Stain - Final 07/22/18 16:00 Sputum, Induced/Lukens Respiratory Culture - Preliminary Appears to be normal respiratory jossy. Further studies to follow. Clinical Impression(s) from Imaging Studies Brain CT 07/23/18 09:31 IMPRESSION: Probable small acute or subacute nonhemorrhagic right basal ganglia and this could be confirmed with MRI. Otherwise negative. Electronically Signed: Austyn Fair MD at 10:31 EST , Service support , Medical Necessity - Tobacco Use Smoking Status: Current every day smoker Tobacco Use: Cigarettes Assessment/Plan All Active Problems Cardiac arrest (Acute) Metabolic acidosis, increased anion gap (Acute) RECOMMENDATIONS: 1. Attempt to stay off of propofol 2. Continue frequent neuro checks 3. Monitor for DI 4. Initiate cooling blanket and Tylenol for central fever 5. Possibly initiate tube feeds later today 6. Full CODE STATUS 7. Initiate tube feeds 8. Possible early tracheostomy and PEG if neuro status not improving significantly over the next 24-48 hours IMPRESSIONS: 1. PEA arrest/respiratory failure/metabolic encephalopathy Patient with 25-45 minutes of pulseless activity. Patient is having what appears to be anoxic injury on physical exam. Still with brainstem reflexes. We will continue to support patient for now. Hypertension and tachycardia are improved. Will continue to use as needed medications as necessary. Family will be updated during rounds. 2. Methamphetamine abuse Patient is reportedly been using substantial amounts of methamphetamine recently. Patient did use methamphetamine 1 hour prior to presentation. Clinical suspicion for arrhythmia leading to arrest initially. We will continue to support hemodynamics. Will monitor for withdrawal. 3. Bipolar/depression/elevated LFTs/poor history Complicates care, management, recovery and prognosis. All home medications have been discontinued. 4. Possible acute kidney injury Unclear baseline renal function. Patient's creatinine is currently elevated at 1.42. Clinical suspicion for dehydration secondary to significant drug use. Will transition from IV fluids to tube feeds. Continue to monitor closely. 5. Possible CVA versus anoxic brain injury Patient continues to be unresponsive. Brainstem reflexes have remained intact. Clinical suspicion for severe anoxic brain injury. Patient will likely need an MRI for evaluation. No seizure activity has been reported. TIME: 33 minutes of critical care time spent addressing patient's PEA arrest, respiratory failure, probable anoxic brain injury, review of all data and collaboration with care team. (6:30 AM to 7:30 AM) Code Visit [id number]: [id number] Critical care first hour
[2018-07-24 08:06] LABS: International Normalized Ratio 1.4; Prothrombin Time (Protime)PT. 16.7 SECONDS (11.7-14.9)
[2018-07-24 08:07] LABS: Partial Thromboplast Time 33.3 Seconds (24.1-36.2)
[2018-07-24] MEDS: Aspirin 325 MG Tablet PO (08:07)
[2018-07-24] MEDS: Vital AF 1.2 Cal Liquid 1,000 ML 20 ML GT (08:07)
--- NOTE | 2018-07-24 09:19 | PCM.PROGNOTE ---
Patient Problems: Active and Suspected Problems Cardiac arrest (Acute) Metabolic acidosis, increased anion gap (Acute) GERD (gastroesophageal reflux disease) (Suspected) Subjective: Chief complaint: Follow-up after admission for cardiac arrest, acute respiratory failure, lactic acidosis, acute kidney injury and probable anoxic brain injury. Patient seen and examined. No acute events overnight. He has been off sedation. When I examined the patient, he was trying to open his eyes and he was painting. Nursing staff reported that he has no more involuntary movements. He started having spikes of fever but blood pressure and heart rate remained stable. He remains on mechanical ventilation - Physical Exam General: No apparent distress, Lethargic, - - Sleepy, trying to open his eyes. HEENT: Atraumatic, EOMI, Sluggish Pupils Oral: Moist Mucosa, No Gingival or Mucosal Lesions/ Ulcerations Neck: Supple, No JVD, Negative Carotid Bruits, Trachea Midline, Thyroid Normal Size and Texture Lungs: Clear to auscultation, No rhonchi, No wheeze, No rales, Diminished Cardiovascular: Regular rate, Regular Rhythm, Normal S1, Normal S2, No murmurs, PMI Normal Abdomen: Bowel Sounds Present, Soft, Non Tender, Non-Distended, No Hepato-splenomegaly Extremities: No clubbing, No cyanosis, No edema Skin: No rashes, No breakdown Lymphatic: No Cervical, Supraclavicular, or Inguinal Adenopathy Neurological: - - Today, patient is starting to open his eyes. No motor response to painful stimuli. No purposeful movements. Psych/Mental Status: - - Unable to assess. Vital Signs Temp Pulse Resp BP Pulse Ox 102.0 F H 63 21 H 149/83 H 100 07/24/18 08:00 07/24/18 08:00 07/24/18 08:00 07/24/18 08:00 07/24/18 08:00 Oxygen Delivery Method Mechanical Ventilator Weight: 191 lb 9.307 oz Body Mass Index (BMI) 24.2 Intake and Output for Last 24 Hours 07/22/18 07/23/18 07/24/18 23:59 23:59 23:59 Intake Total 1364 / 1364 2995 / 2995 1662 / 1662 Output Total 750 / 750 545 / 545 700 / 700 Balance 614 / 614 2450 / 2450 962 / 962 Microbiology Past 72 Hours 07/22/18 16:00 Gram Stain - Final Sputum, Induced/Lukens Respiratory Culture - Preliminary Appears to be normal respiratory jossy. Further studies to follow. Laboratory Tests Past 24 Hrs 07/23/18 07/24/18 07/24/18 21:40 06:20 07:30 PT 16.7 H INR 1.4 APTT 33.3 Sodium 144 144 Potassium 4.9 4.4 Chloride 115 H 115 H Carbon Dioxide 20.0 L 19.0 L Anion Gap 9 10 BUN 17 16 Creatinine 1.33 H 1.42 H Estim Creat Clear Calc 91.78 85.96 Est GFR (MDRD) Af Amer 81 75 Est GFR (MDRD) Non-Af 67 62 BUN/Creatinine Ratio 12.8 11.3 Glucose 88 79 Calcium 7.8 L 8.0 L Medical Necessity - Tobacco Use Smoking Status: Current every day smoker Tobacco Use: Cigarettes Assessment/Plan All Active Problems Cardiac arrest (Acute) Metabolic acidosis, increased anion gap (Acute) This is a 32 years old male patient presented to the emergency room because of cardiac arrest which is probably due to drug overdose, found to have metabolic acidosis secondary to cardiac arrest prolonged and hypoperfusion, acute kidney injury, elevated LFT and probable anoxic brain injury. #1 cardiac arrest/acute respiratory failure: Remained on mechanical ventilation at this time. He has been having spontaneous breathing over the vent. He is off sedation, trying to open his eyes and blinking. It was PEA cardiac arrest. Unclear etiology, could be due to methamphetamine overdose. Patient was on mechanical ventilation. He has no response to pain, no spontaneous eye opening, a [place] Coma Scale of 0. Blood pressure and heart rate are maintained. Started on tube feeds. Plan to continue same treatment. #2 lactic acidosis: Likely due to tissue hypoperfusion secondary to cardiac arrest. At this time, blood pressure is maintained on IV fluids. No vasopressors needed. Lactic acid is back to normal. Patient started having spikes of fever which could be central. Sputum culture revealed normal respiratory jossy. Will do blood culture, consider start IV antibiotics. #3 acute kidney injury: Again, attributed to tissue hypoperfusion secondary to cardiac arrest. Unknown baseline kidney function. Admission creatinine was 1.83, coming down to 1.42 today, continued to improve slowly. #4 drug abuse/drug overdose: Reportedly, she has been using methamphetamines heavily recently. Urine drug screen was positive for amphetamines and methamphetamines. #5 probable anoxic brain injury: Secondary to cardiac arrest and prolonged CPR. Today, patient remained off sedation. He has been trying to open his eyes and he has been having blinking of his eyes. CT scan brain revealed probable small acute or subacute nonhemorrhagic stroke of the right basal ganglia. Patient may need MRI brain for confirmation. #6 elevated LFT: Again, secondary to tissue hypoperfusion. LFTs was elevated and the liver transaminases and the are trending down. Bilirubin and alkaline phosphatase are normal. #6 schizophrenia/bipolar disorders: Medication on hold. #7 GERD: He is on IV Protonix. #8 DVT prophylaxis: Subcu heparin. This note was generated with [employer] dictation software. It may contain incorrect words, spelling, and punctuation that were not noted in checking the note before signing. Code Visit Inpatient E&M: 25328 Subs Hosp L3
[2018-07-24] MEDS: Petrolatum,White 3.75GM OPTH.TUBE 1 APPLIC OPHTHALMIC ×2 (10:53→22:06)
[2018-07-24] MEDS: Chlorhexidine 15 ML PO ×2 (10:53→22:09)
[2018-07-24] MEDS: Heparin Injection (Vial) 5,000 UNIT/ML VIAL 5000 UNIT SC ×2 (10:54→22:06)
[2018-07-24] MEDS: DOPamine IV 800 MG/250 ML IV.SOLN. 8.147 MG IV (11:30)
[2018-07-24 13:44] LABS: Absolute Lymphocyte Count 0.44 X10^3/ul (0.83-4.51); Absolute Neutrophil Count 8.4 X10^3/uL (2.0-7.7); Hematocrit 29.5 % (40-54); Hemoglobin 9.7 g/dl (13.0-16.5); Lymphocyte # 0.44 X10^3/ul (4.0); Lymphocyte % 4.6 % (19-41); Mean Corp Hgb Conc 32.9 g/gl (32-36); Mean Corpuscular Hgb 28.6 pg (27.0-32.0); Mean Platelet Vol. 9.7 fl (6.2-12.0); Monocyte% 8.3 % (0-10); Neutrophil # 8.35 X10^3/uL (2.7-7.7); Neutrophil % 86.8 % (47-70); Platelet Count 155 K/mm3 (150-450); RBC Distribution Width CV 12.8 % (11.6-14.6); RBC Distribution Width SD 39.3 fl (35.1-43.9); Red Blood Count 3.39 M/mm3 (4.6-6.2); White Blood Count 9.6 K/mm3 (4.4-11.0)
[2018-07-24 13:45] LABS: Differential Indicated SCAN CRITERIA MET; POSITIVE COUNT NO; POSITIVE DIFFERENTIAL YES; POSITIVE MORPHOLOGY NO
[2018-07-24] MEDS: Labetalol 20 MG/4 ML Vial IV (13:53)
[2018-07-24] MEDS: 0.9% NaCl Peripheral Flush Adult/Peds IV (13:53)
--- NOTE | 2018-07-24 15:30 | NURSING ---
At bedside for assessment, pt began seizing. Ativan 2mg IV given.
[2018-07-24] MEDS: LORazepam 2 MG/ML Syringe IV ×3 (15:31→16:10)
[2018-07-24] MEDS: Propofol 10MG/Ml 1,000 MG/100 ML Bottle 18.432 MG CONT INF ×3 (15:43→22:06)
--- NOTE | 2018-07-24 16:21 | CT_ITS ---
STUDY: CT BRAIN WITHOUT CONTRAST REASON FOR EXAM: Male, 32 years old. RADIATION DOSAGE (If Supplied By Facility): CTDIvol = ( 44.99 ) mGy, DLP = ( 762.36 ) mGycm TECHNIQUE: Transaxial CT imaging of the brain was performed without administration of intravenous contrast material. Multiplanar reformations are submitted for interpretation. Individualized dose optimization techniques were used for this CT. COMPARISON: CT of the head July 23, [address] of the head dated July 22, 2018 FINDINGS: Normal soft tissue structures. Normal calvarium. There is diffuse effacement of cortical sulci throughout the brain probably related to diffuse cerebral edema. There is loss of strauss-white differentiation with diffuse decreased attenuation of the brain suggesting sequela of anoxic injury. There is a pseudo subarachnoid hemorrhage appearance consistent with diffuse cerebral edema. Decreased attenuation in the right basal ganglia and head of the right caudate nucleus may represent the sequela of an additional acute infarct. Left basal ganglia and thalami have a grossly normal appearance. There is effacement of the basilar cisterns probably related to the diffuse cerebral edema and early transtentorial shift. There is diffuse effacement of cerebellar sulci probably related to diffuse cerebral edema. There is no intracranial hemorrhage. There is no appreciable intracranial atherosclerotic disease. There appears to be fluid in the left maxillary sinus in addition to mucoperiosteal thickening. CT/Brain/Head without Contrast IMPRESSION: 1. CT findings suggests late sequela of anoxic injury with findings suggestive of brain , diffuse cerebral and cerebellar edema and early transtentorial shift. 2. Subacute right-sided basal ganglia infarct. N.B. : The above information has been verbally conveyed by Josephine Kohli MD to Samantha Mancera RN, on 07/24/2018 18:34:04 (ET). Electronically Signed: Josephine Kohli MD at 17:57 EST , Service support ,
[2018-07-24] MEDS: levETIRAcetam IV 1,000 MG/100 ML BAG 400 MG IV (16:24)
--- NOTE | 2018-07-24 16:45 | NURSING ---
Pt to CT. Kimberly RT, Piedad RT, and Leah DEAN transporting along with this RN.
--- NOTE | 2018-07-24 17:15 | NURSING ---
Pt return from CT.
[2018-07-25] VITALS (55 sets, daily range): BP systolic 110–179; BP diastolic 61–111; PULSE 46–127; RESP 14–23; TEMP 34.6–39.2; O2SAT 94–100
--- NOTE | 2018-07-25 | NURSING ---
cooling blanket on hold at this time due to pt being normothermic
--- NOTE | 2018-07-25 05:00 | NURSING ---
restarted at 0500 cooling blanket due increasing temp
[2018-07-25] MEDS: 0.9% NaCl Peripheral Flush Adult/Peds IV (05:11)
[2018-07-25] MEDS: LORazepam 2 MG/ML Syringe IV ×2 (05:11→07:11)
[2018-07-25] MEDS: 0.9% Normal Saline 1,000 ML 150 ML IV (05:20)
[2018-07-25 05:27] LABS: Absolute Lymphocyte Count 0.55 X10^3/ul (0.83-4.51); Basophil# 0.01 X10^3/uL; Basophil% 0.1 % (0-1); Hematocrit 41.3 % (40-54); Hemoglobin 13.5 g/dl (13.0-16.5); Lymphocyte # 0.55 X10^3/ul (4.0); Lymphocyte % 4.9 % (19-41); Mean Corp Hgb Conc 32.7 g/gl (32-36); Mean Corpuscular Hgb 28.3 pg (27.0-32.0); Mean Corpuscular Volume 86.6 fL (80-94); Mean Platelet Vol. 9.8 fl (6.2-12.0); Monocyte# 0.76 X10^3/uL; Monocyte% 6.7 % (0-10); Neutrophil % 88.1 % (47-70); Platelet Count 211 K/mm3 (150-450); RBC Distribution Width CV 13.4 % (11.6-14.6); RBC Distribution Width SD 41.9 fl (35.1-43.9); Red Blood Count 4.77 M/mm3 (4.6-6.2); White Blood Count 11.3 K/mm3 (4.4-11.0)
[2018-07-25 05:31] LABS: Differential Indicated SCAN CRITERIA MET; POSITIVE COUNT NO; POSITIVE DIFFERENTIAL YES; POSITIVE MORPHOLOGY NO
[2018-07-25 05:33] LABS: Anion Gap 8 (5-15); BUN 12 mg/dL (7-18); BUN/Creat Ratio 10.3 RATIO (10-20); Calcium,Total 8.9 mg/dL (8.5-10.1); Chloride 120 mmol/L (98-107); Creatinine, Serum 1.17 mg/dL (0.70-1.30); EST Glomerular Filtration Rate 77 mL/min (>60); Est Glom Filt Rate - Afr Amer 94 mL/min (>60); Estimated Creatinine Clearance 104.33 ml/min; Glucose 116 mg/dL (74-106); Sodium Level 152 mmol/L (136-145)
[2018-07-25 05:55] LABS: CPK Total, Creatine Kinase 1846 U/L (39-308)
--- NOTE | 2018-07-25 06:52 | PCM.PN.INT ---
Subjective: The patient was seen and examined at the bedside this morning. Events from the last 24 hours have been reviewed. The patient is currently afebrile, hemodynamically stable and maintaining appropriate oxygen saturations with an FiO2 requirement of 25%. Yesterday, the patient was noted to be experiencing seizure activity, which was treated medically with Ativan. He was subsequently taken for a stat CT head which revealed findings concerning for anoxic brain injury, diffuse cerebral edema and potential early transtentorial shift. There was also note of a subacute right sided basal ganglia infarct. Copious amounts of secretions were also noted by the overnight nursing staff. The patient did initiate spontaneous breaths on CPAP this morning. The patient's sodium is increased to 152 this morning. Objective: The patient's most recent lab work, culture data and imaging studies have all been personally reviewed. Surface echocardiogram revealed normal LV size and function with an ejection fraction of 50%. There was a mildly dilated RV with mild global RV systolic dysfunction and a pulmonary artery systolic pressure estimated to be 45 mmHg. General: - - Resting comfortably. No ventilator dyssynchrony. Nonresponsive to verbal and tactile stimulation. HEENT: Atraumatic, Normocephalic, - - Dilated, nonresponsive pupils Oral: Dry Mucosa, - - Endotracheal and OG tubes in place Neck: Supple, No Nodes, Trachea Midline Lungs: Normal air movement, No rhonchi, No wheeze, No rales Cardiovascular: Regular rate, Regular Rhythm, Normal S1, Normal S2, No murmurs Abdomen: Bowel Sounds Present, Soft, Non Tender Extremities: No clubbing, No cyanosis, Edema Skin: No breakdown Musculoskeletal: No Muscle Wasting Lymphatic: No Cervical, Supraclavicular, or Inguinal Adenopathy Neurological: - - The patient is largely nonresponsive, but does have a positive gag reflex and does initiate spontaneous breaths on CPAP. Psych/Mental Status: Flat Affect Vital Signs Temp Pulse Resp BP Pulse Ox 37.9 C H 85 15 147/81 H 100 07/25/18 06:00 07/25/18 06:00 07/25/18 06:00 07/25/18 06:00 07/25/18 06:00 Oxygen Delivery Method Mechanical Ventilator Weight: 184 lb 15.485 oz Body Mass Index (BMI) 24.2 Intake and Output for Last 24 Hours 07/23/18 07/24/18 07/25/18 23:59 23:59 23:59 Intake Total 2995 / 2995 3830 / 3830 1679 / 1679 Output Total 545 / 545 1220 / 1220 4000 / 4000 Balance 2450 / 2450 2610 / 2610 -2321 / -2321 Labs (Last 48 Hours) 07/22/18 07/23/18 07/24/18 13:37 21:40 06:20 WBC RBC Hgb Hct MCV MCH MCHC RDW RDW Differential Plt Count MPV Immature Gran % (Auto) Neut % (Auto) Lymph % (Auto) [place] % (Auto) Eos % (Auto) Baso % (Auto) Absolute Neuts (auto) Absolute Lymphs (auto) Total Counted PT INR APTT Specimen Type Cancelled Sample Site Cancelled pH Cancelled Bicarbonate Actual Cancelled POC Total CO2 Cancelled Base Excess Cancelled O2 Saturation Cancelled O2 % Cancelled ABG pCO2 Cancelled ABG pO2 Cancelled Abiel Test Cancelled Respiration Rate Cancelled O2 Delivery Device Cancelled Liter Flow Cancelled Minute Volume Cancelled Vent Mode Cancelled Tidal Volume Cancelled POC PEEP Cancelled POC Pressure Suppt Cancelled Pressure High Cancelled Pressure Low Cancelled Time High Cancelled Time Low Cancelled EPAP Cancelled IPAP Cancelled Blood Gas Notified Whom Cancelled Blood Gas Notified Time Cancelled Sodium 144 144 Potassium 4.9 4.4 Chloride 115 H 115 H Carbon Dioxide 20.0 L 19.0 L Anion Gap 9 10 BUN 17 16 Creatinine 1.33 H 1.42 H Estim Creat Clear Calc 91.78 85.96 Est GFR (MDRD) Af Amer 81 75 Est GFR (MDRD) Non-Af 67 62 BUN/Creatinine Ratio 12.8 11.3 Glucose 88 79 Calcium 7.8 L 8.0 L Total Creatine Kinase 07/24/18 07/24/18 07/25/18 07:30 13:30 05:10 WBC 9.6 RBC 3.39 L Hgb 9.7 L Hct 29.5 L MCV 87.0 MCH 28.6 MCHC 32.9 RDW 12.8 RDW Differential 39.3 Plt Count 155 MPV 9.7 Immature Gran % (Auto) 0.300 Neut % (Auto) 86.8 H Lymph % (Auto) 4.6 L [place] % (Auto) 8.3 Eos % (Auto) 0.0 Baso % (Auto) 0.0 Absolute Neuts (auto) 8.4 H Absolute Lymphs (auto) 0.44 L Total Counted Not Reportable PT 16.7 H INR 1.4 APTT 33.3 Specimen Type Sample Site pH Bicarbonate Actual POC Total CO2 Base Excess O2 Saturation O2 % ABG pCO2 ABG pO2 Abiel Test Respiration Rate O2 Delivery Device Liter Flow Minute Volume Vent Mode Tidal Volume POC PEEP POC Pressure Suppt Pressure High Pressure Low Time High Time Low EPAP IPAP Blood Gas Notified Whom Blood Gas Notified Time Sodium 152 H Potassium 5.0 Chloride 120 H Carbon Dioxide 24.0 Anion Gap 8 BUN 12 Creatinine 1.17 Estim Creat Clear Calc 104.33 Est GFR (MDRD) Af Amer 94 Est GFR (MDRD) Non-Af 77 BUN/Creatinine Ratio 10.3 Glucose 116 H Calcium 8.9 Total Creatine Kinase 07/25/18 07/25/18 05:10 05:10 WBC 11.3 H RBC 4.77 Hgb 13.5 Hct 41.3 MCV 86.6 MCH 28.3 MCHC 32.7 RDW 13.4 RDW Differential 41.9 Plt Count 211 MPV 9.8 Immature Gran % (Auto) 0.200 Neut % (Auto) 88.1 H Lymph % (Auto) 4.9 L [place] % (Auto) 6.7 Eos % (Auto) 0.0 Baso % (Auto) 0.1 Absolute Neuts (auto) 10.0 H Absolute Lymphs (auto) 0.55 L Total Counted Not Reportable PT INR APTT Specimen Type Sample Site pH Bicarbonate Actual POC Total CO2 Base Excess O2 Saturation O2 % ABG pCO2 ABG pO2 Abiel Test Respiration Rate O2 Delivery Device Liter Flow Minute Volume Vent Mode Tidal Volume POC PEEP POC Pressure Suppt Pressure High Pressure Low Time High Time Low EPAP IPAP Blood Gas Notified Whom Blood Gas Notified Time Sodium Potassium Chloride Carbon Dioxide Anion Gap BUN Creatinine Estim Creat Clear Calc Est GFR (MDRD) Af Amer Est GFR (MDRD) Non-Af BUN/Creatinine Ratio Glucose Calcium Total Creatine Kinase 1846 H Microbiology 07/22/18 16:00 Sputum, Induced/Lukens Gram Stain - Final 07/22/18 16:00 Sputum, Induced/Lukens Respiratory Culture - Preliminary Appears to be normal respiratory jossy. Further studies to follow. Clinical Impression(s) from Imaging Studies Chest X-Ray 07/22/18 13:05 IMPRESSION: The tip of the endotracheal tube is at 9.5 cm proximal to the amanda. Electronically Signed: Miah Sexton MD at 13:56 EST Tel [phone], Service support , KUB X-Ray 07/22/18 13:06 IMPRESSION: The tip of the nasogastric tube is in the proximal portion of the body of the stomach. Slightly dilated small bowel loops in the central abdomen. 4.4 round metallic BB seen overlying the left midabdomen. Electronically Signed: Miah Sexton MD at 13:58 EST Tel [phone], Service support , Brain CT 07/22/18 14:30 IMPRESSION: Normal unenhanced CT scan of the brain. Partial opacification of the left axillary sinus and mucosal thickening of the ethmoid sinuses. Electronically Signed: Miah Sexton MD at 15:30 EST Tel [phone], Service support , Chest X-Ray 07/22/18 15:37 IMPRESSION: Satisfactory position of the support lines and tubes. No acute thoracic pathology. Electronically Signed: Romain Salazar, at 16:11 EST Tel , Service support , Brain CT 07/23/18 09:31 IMPRESSION: Probable small acute or subacute nonhemorrhagic right basal ganglia and this could be confirmed with MRI. Otherwise negative. Electronically Signed: Austyn Fair MD at 10:31 EST , Service support , Brain CT 07/24/18 16:21 IMPRESSION: 1. CT findings suggests late sequela of anoxic injury with findings suggestive of brain , diffuse cerebral and cerebellar edema and early transtentorial shift. 2. Subacute right-sided basal ganglia infarct. N.B. : The above information has been verbally conveyed by Josephine Kohli MD to Samantha Mancera RN, on 07/24/2018 18:34:04 (ET). Electronically Signed: Josephine Kohli MD at 17:57 EST , Service support , Medical Necessity - Tobacco Use Smoking Status: Current every day smoker Tobacco Use: Cigarettes Assessment/Plan All Active Problems Cardiac arrest (Acute) Metabolic acidosis, increased anion gap (Acute) Anoxic brain damage (Acute) Seizure (Acute) RECOMMENDATIONS: 1. Continue current supportive measures with invasive mechanical ventilation and tube feeds, which will be restarted today. 2. Await evaluation by neurology. 3. Obtain EEG. 4. Continue dexamethasone as ordered. 5. Discontinue labetalol. 6. Continue seizure precautions along with as needed Ativan. 7. Start D5W to offset rising sodium level. IMPRESSIONS: 1. Acute respiratory failure status post PEA cardiac arrest The patient was intubated in the setting of PEA cardiac arrest, which appears to have been precipitated by a recent methamphetamine binge. The patient's ventilator requirements are minimal. However, he appears to have significant neurological injury, which will certainly preclude his ability to be liberated from mechanical ventilatory support. Plan to continue current supportive measures for now. Tube feeds can be restarted today. 2. Methamphetamine abuse The patient had reportedly been using substantial amounts of methamphetamine recently. Patient did use methamphetamine 1 hour prior to presentation. Clinical suspicion for arrhythmia leading to arrest initially. We will continue to support hemodynamics. 3. Metabolic/anoxic encephalopathy/seizure activity The patient is currently nonresponsive and off of all sedative medications. Recommend to continue to withhold all sedating medications. Recent CT head did reveal findings concerning for anoxic brain injury, cerebral edema, subacute infarction and possible midline shift. The patient has also developed interval seizure activity, which is being treated with Keppra and Ativan. Neurology evaluation is currently pending. Obtain EEG. 4. Hypernatremia The patient was noted to have a significant amount of output from his Hackett catheter overnight. His sodium has risen this morning. We will plan to start him on D5W to offset rising sodium. 5. Subacute right basal ganglia infarct/cerebral edema As noted above, the patient's CT head did reveal significant findings concerning for anoxic brain injury along with cerebral edema and subacute infarction. He will be continued on Decadron as ordered. Neurology evaluation is pending to assist with prognostication. TIME: 45 minutes of critical care time, independent of procedures, was spent addressing the patient's acute respiratory failure status post PEA arrest, methamphetamine abuse, metabolic/anoxic encephalopathy, seizure activity, hypernatremia, cerebral edema, review of all data and collaboration with the care team. ([id number]) Code Visit [id number]: [id number] Critical care first hour
--- NOTE | 2018-07-25 06:53 | NURSING ---
seizure activity noted at 0505; prn ativan given. seizure activity ceased.
--- NOTE | 2018-07-25 06:57 | PN_ITS ---
Subjective: The patient was seen and examined at the bedside this morning. Events from the last 24 hours have been reviewed. The patient is currently afebrile, hemodynamically stable and maintaining appropriate oxygen saturations with an FiO2 requirement of 25%. Yesterday, the patient was noted to be experiencing seizure activity, which was treated medically with Ativan. He was subsequently taken for a stat CT head which revealed findings concerning for anoxic brain injury, diffuse cerebral edema and potential early transtentorial shift. There was also note of a subacute right sided basal ganglia infarct. Copious amounts of secretions were also noted by the overnight nursing staff. The patient did initiate spontaneous breaths on CPAP this morning. The patient's sodium is increased to 152 this morning. Objective: The patient's most recent lab work, culture data and imaging studies have all been personally reviewed. Surface echocardiogram revealed normal LV size and function with an ejection fraction of 50%. There was a mildly dilated RV with mild global RV systolic dysfunction and a pulmonary artery systolic pressure estimated to be 45 mmHg. General: - - Resting comfortably. No ventilator dyssynchrony. Nonresponsive to verbal and tactile stimulation. HEENT: Atraumatic, Normocephalic, - - Dilated, nonresponsive pupils Oral: Dry Mucosa, - - Endotracheal and OG tubes in place Neck: Supple, No Nodes, Trachea Midline Lungs: Normal air movement, No rhonchi, No wheeze, No rales Cardiovascular: Regular rate, Regular Rhythm, Normal S1, Normal S2, No murmurs Abdomen: Bowel Sounds Present, Soft, Non Tender Extremities: No clubbing, No cyanosis, Edema Skin: No breakdown Musculoskeletal: No Muscle Wasting Lymphatic: No Cervical, Supraclavicular, or Inguinal Adenopathy Neurological: - - The patient is largely nonresponsive, but does have a positive gag reflex and does initiate spontaneous breaths on CPAP. Psych/Mental Status: Flat Affect Vital Signs Temp Pulse Resp BP Pulse Ox 37.9 C H 85 15 147/81 H 100 07/25/18 06:00 07/25/18 06:00 07/25/18 06:00 07/25/18 06:00 07/25/18 06:00 Oxygen Delivery Method Mechanical Ventilator Weight: 184 lb 15.485 oz Body Mass Index (BMI) 24.2 Intake and Output for Last 24 Hours 07/23/18 07/24/18 07/25/18 23:59 23:59 23:59 Intake Total 2995 / 2995 3830 / 3830 1679 / 1679 Output Total 545 / 545 1220 / 1220 4000 / 4000 Balance 2450 / 2450 2610 / 2610 -2321 / -2321 Labs (Last 48 Hours) 07/22/18 07/23/18 07/24/18 13:37 21:40 06:20 WBC RBC Hgb Hct MCV MCH MCHC RDW RDW Differential Plt Count MPV Immature Gran % (Auto) Neut % (Auto) Lymph % (Auto) [place] % (Auto) Eos % (Auto) Baso % (Auto) Absolute Neuts (auto) Absolute Lymphs (auto) Total Counted PT INR APTT Specimen Type Cancelled Sample Site Cancelled pH Cancelled Bicarbonate Actual Cancelled POC Total CO2 Cancelled Base Excess Cancelled O2 Saturation Cancelled O2 % Cancelled ABG pCO2 Cancelled ABG pO2 Cancelled Abiel Test Cancelled Respiration Rate Cancelled O2 Delivery Device Cancelled Liter Flow Cancelled Minute Volume Cancelled Vent Mode Cancelled Tidal Volume Cancelled POC PEEP Cancelled POC Pressure Suppt Cancelled Pressure High Cancelled Pressure Low Cancelled Time High Cancelled Time Low Cancelled EPAP Cancelled IPAP Cancelled Blood Gas Notified Whom Cancelled Blood Gas Notified Time Cancelled Sodium 144 144 Potassium 4.9 4.4 Chloride 115 H 115 H Carbon Dioxide 20.0 L 19.0 L Anion Gap 9 10 BUN 17 16 Creatinine 1.33 H 1.42 H Estim Creat Clear Calc 91.78 85.96 Est GFR (MDRD) Af Amer 81 75 Est GFR (MDRD) Non-Af 67 62 BUN/Creatinine Ratio 12.8 11.3 Glucose 88 79 Calcium 7.8 L 8.0 L Total Creatine Kinase 07/24/18 07/24/18 07/25/18 07:30 13:30 05:10 WBC 9.6 RBC 3.39 L Hgb 9.7 L Hct 29.5 L MCV 87.0 MCH 28.6 MCHC 32.9 RDW 12.8 RDW Differential 39.3 Plt Count 155 MPV 9.7 Immature Gran % (Auto) 0.300 Neut % (Auto) 86.8 H Lymph % (Auto) 4.6 L [place] % (Auto) 8.3 Eos % (Auto) 0.0 Baso % (Auto) 0.0 Absolute Neuts (auto) 8.4 H Absolute Lymphs (auto) 0.44 L Total Counted Not Reportable PT 16.7 H INR 1.4 APTT 33.3 Specimen Type Sample Site pH Bicarbonate Actual POC Total CO2 Base Excess O2 Saturation O2 % ABG pCO2 ABG pO2 Abiel Test Respiration Rate O2 Delivery Device Liter Flow Minute Volume Vent Mode Tidal Volume POC PEEP POC Pressure Suppt Pressure High Pressure Low Time High Time Low EPAP IPAP Blood Gas Notified Whom Blood Gas Notified Time Sodium 152 H Potassium 5.0 Chloride 120 H Carbon Dioxide 24.0 Anion Gap 8 BUN 12 Creatinine 1.17 Estim Creat Clear Calc 104.33 Est GFR (MDRD) Af Amer 94 Est GFR (MDRD) Non-Af 77 BUN/Creatinine Ratio 10.3 Glucose 116 H Calcium 8.9 Total Creatine Kinase 07/25/18 07/25/18 05:10 05:10 WBC 11.3 H RBC 4.77 Hgb 13.5 Hct 41.3 MCV 86.6 MCH 28.3 MCHC 32.7 RDW 13.4 RDW Differential 41.9 Plt Count 211 MPV 9.8 Immature Gran % (Auto) 0.200 Neut % (Auto) 88.1 H Lymph % (Auto) 4.9 L [place] % (Auto) 6.7 Eos % (Auto) 0.0 Baso % (Auto) 0.1 Absolute Neuts (auto) 10.0 H Absolute Lymphs (auto) 0.55 L Total Counted Not Reportable PT INR APTT Specimen Type Sample Site pH Bicarbonate Actual POC Total CO2 Base Excess O2 Saturation O2 % ABG pCO2 ABG pO2 Abiel Test Respiration Rate O2 Delivery Device Liter Flow Minute Volume Vent Mode Tidal Volume POC PEEP POC Pressure Suppt Pressure High Pressure Low Time High Time Low EPAP IPAP Blood Gas Notified Whom Blood Gas Notified Time Sodium Potassium Chloride Carbon Dioxide Anion Gap BUN Creatinine Estim Creat Clear Calc Est GFR (MDRD) Af Amer Est GFR (MDRD) Non-Af BUN/Creatinine Ratio Glucose Calcium Total Creatine Kinase 1846 H Microbiology 07/22/18 16:00 Sputum, Induced/Lukens Gram Stain - Final 07/22/18 16:00 Sputum, Induced/Lukens Respiratory Culture - Preliminary Appears to be normal respiratory jossy. Further studies to follow. Clinical Impression(s) from Imaging Studies Chest X-Ray 07/22/18 13:05 IMPRESSION: The tip of the endotracheal tube is at 9.5 cm proximal to the amanda. Electronically Signed: Miah Sexton MD at 13:56 EST Tel [phone], Service support , KUB X-Ray 07/22/18 13:06 IMPRESSION: The tip of the nasogastric tube is in the proximal portion of the body of the stomach. Slightly dilated small bowel loops in the central abdomen. 4.4 round metallic BB seen overlying the left midabdomen. Electronically Signed: Miah Sexton MD at 13:58 EST Tel [phone], Service support , Brain CT 07/22/18 14:30 IMPRESSION: Normal unenhanced CT scan of the brain. Partial opacification of the left axillary sinus and mucosal thickening of the ethmoid sinuses. Electronically Signed: Miah Sexton MD at 15:30 EST Tel [phone], Service support , Chest X-Ray 07/22/18 15:37 IMPRESSION: Satisfactory position of the support lines and tubes. No acute thoracic pathology. Electronically Signed: Romain Salazar, at 16:11 EST Tel , Service support , Brain CT 07/23/18 09:31 IMPRESSION: Probable small acute or subacute nonhemorrhagic right basal ganglia and this could be confirmed with MRI. Otherwise negative. Electronically Signed: Austyn Fair MD at 10:31 EST , Service support , Brain CT 07/24/18 16:21 IMPRESSION: 1. CT findings suggests late sequela of anoxic injury with findings suggestive of brain , diffuse cerebral and cerebellar edema and early transtentorial shift. 2. Subacute right-sided basal ganglia infarct. N.B. : The above information has been verbally conveyed by Josephine Kohli MD to Samantha Mancera RN, on 07/24/2018 18:34:04 (ET). Electronically Signed: Josephine Kohli MD at 17:57 EST , Service support , Medical Necessity - Tobacco Use Smoking Status: Current every day smoker Tobacco Use: Cigarettes Assessment/Plan All Active Problems Cardiac arrest (Acute) Metabolic acidosis, increased anion gap (Acute) Anoxic brain damage (Acute) Seizure (Acute) RECOMMENDATIONS: 1. Continue current supportive measures with invasive mechanical ventilation and tube feeds, which will be restarted today. 2. Await evaluation by neurology. 3. Obtain EEG. 4. Continue dexamethasone as ordered. 5. Discontinue labetalol. 6. Continue seizure precautions along with as needed Ativan. 7. Start D5W to offset rising sodium level. IMPRESSIONS: 1. Acute respiratory failure status post PEA cardiac arrest The patient was intubated in the setting of PEA cardiac arrest, which appears to have been precipitated by a recent methamphetamine binge. The patient's ventilator requirements are minimal. However, he appears to have significant neurological injury, which will certainly preclude his ability to be liberated from mechanical ventilatory support. Plan to continue current supportive measures for now. Tube feeds can be restarted today. 2. Methamphetamine abuse The patient had reportedly been using substantial amounts of methamphetamine recently. Patient did use methamphetamine 1 hour prior to presentation. Clinical suspicion for arrhythmia leading to arrest initially. We will continue to support hemodynamics. 3. Metabolic/anoxic encephalopathy/seizure activity The patient is currently nonresponsive and off of all sedative medications. Recommend to continue to withhold all sedating medications. Recent CT head did reveal findings concerning for anoxic brain injury, cerebral edema, subacute infarction and possible midline shift. The patient has also developed interval seizure activity, which is being treated with Keppra and Ativan. Neurology evaluation is currently pending. Obtain EEG. 4. Hypernatremia The patient was noted to have a significant amount of output from his Hackett catheter overnight. His sodium has risen this morning. We will plan to start him on D5W to offset rising sodium. 5. Subacute right basal ganglia infarct/cerebral edema As noted above, the patient's CT head did reveal significant findings concerning for anoxic brain injury along with cerebral edema and subacute infarction. He will be continued on Decadron as ordered. Neurology evaluation is pending to assist with prognostication. TIME: 45 minutes of critical care time, independent of procedures, was spent addressing the patient's acute respiratory failure status post PEA arrest, methamphetamine abuse, metabolic/anoxic encephalopathy, seizure activity, hypernatremia, cerebral edema, review of all data and collaboration with the care team. ([id number]) Code Visit 9xxxx: [id number] Critical care first hour
--- NOTE | 2018-07-25 08:30 | PCM.PN.HOSP ---
Patient Problems: Active and Suspected Problems Cardiac arrest (Acute) Metabolic acidosis, increased anion gap (Acute) GERD (gastroesophageal reflux disease) (Suspected) Subjective: Patient is a 32-year-old male who was brought to the emergency department following cardiac arrest. Patient had apparently been using methamphetamines for 3 days continuously. His initial assessment was consistent with metabolic acidosis following cardiac arrest, acute kidney injury, rhabdomyolysis, shock liver and anoxic brain injury intubated and transferred to the intensive care unit Objective: GENERAL: Unresponsive HEENT: Atraumatic; moist oral mucosa EYES; Anicteric, Normal Conjunctiva NECK; supple, normal thyroid, no distended JVD. RESPIRATORY: Diminished to auscultation bilaterally, CARDIOVASCULAR: Regular S1 S2, GI: Nondistended, normoactive bowel sounds, EXTREMITIES: No edema, no clubbing, no cyanosis. MUSCULOSKELETAL: No Joint Tenderness; no muscle waisting NEURO: Unresponsive SKIN: Multiple tattoos on both extremities and trunk PSYCH; able to assess patient on the vent Vitals/I&O's: Vital Signs Temp Pulse Resp BP Pulse Ox 102.5 F H 78 15 140/80 H 100 07/25/18 08:00 07/25/18 08:00 07/25/18 08:00 07/25/18 08:00 07/25/18 08:00 Oxygen Delivery Method Mechanical Ventilator Weight: 83.9 kg Body Mass Index (BMI) 24.2 Intake and Output for Last 24 Hours 07/23/18 07/24/18 07/25/18 23:59 23:59 23:59 Intake Total 2995 / 2995 3830 / 3830 1679 / 1679 Output Total 545 / 545 1220 / 1220 4000 / 4000 Balance 2450 / 2450 2610 / 2610 -2321 / -2321 Microbiology Past 72 Hours 07/22/18 16:00 Sputum, Induced/Lukens Gram Stain - Final 07/22/18 16:00 Sputum, Induced/Lukens Respiratory Culture - Preliminary Appears to be normal respiratory jossy. Further studies to follow. Laboratory Results 07/24/18 13:30: WBC 9.6, RBC 3.39 L, Hgb 9.7 L, Hct 29.5 L, MCV 87.0, MCH 28.6, MCHC 32.9, RDW 12.8, RDW Differential 39.3, Plt Count 155, MPV 9.7, Immature Gran % (Auto) 0.300, Neut % (Auto) 86.8 H, Lymph % (Auto) 4.6 L, Johnson % (Auto) 8.3, Eos % (Auto) 0.0, Baso % (Auto) 0.0, Absolute Neuts (auto) 8.4 H, Absolute Lymphs (auto) 0.44 L, Total Counted Not Reportable 07/25/18 05:10: Sodium 152 H, Potassium 5.0, Chloride 120 H, Carbon Dioxide 24.0, Anion Gap 8, BUN 12, Creatinine 1.17, Estim Creat Clear Calc 104.33, Est GFR (MDRD) Af Amer 94, Est GFR (MDRD) Non-Af 77, BUN/Creatinine Ratio 10.3, Glucose 116 H, Calcium 8.9 07/25/18 05:10: WBC 11.3 H, RBC 4.77, Hgb 13.5, Hct 41.3, MCV 86.6, MCH 28.3, MCHC 32.7, RDW 13.4, RDW Differential 41.9, Plt Count 211, MPV 9.8, Immature Gran % (Auto) 0.200, Neut % (Auto) 88.1 H, Lymph % (Auto) 4.9 L, Johnson % (Auto) 6.7, Eos % (Auto) 0.0, Baso % (Auto) 0.1, Absolute Neuts (auto) 10.0 H, Absolute Lymphs (auto) 0.55 L, Total Counted Not Reportable 07/25/18 05:10: Total Creatine Kinase 1846 H Current Medications Acetaminophen (Tylenol Liquid) 650 mg GT Q4H PRN PRN PRN Reason: Fever >101 Last Admin: 07/24/18 04:43 Dose: 650 mg Aspirin (Aspirin) 325 mg PO DAILY@0800 [facility] Last Admin: 07/24/18 08:07 Dose: 325 mg Chlorhexidine Gluconate () 15 ml PO BID [facility] Last Admin: 07/24/18 22:09 Dose: 15 ml Chlorhexidine Gluconate () 1 each TOPICAL DAILY [facility] Last Admin: 07/24/18 22:07 Dose: 1 each Dexamethasone Sodium Phosphate (Decadron) 4 mg IV Q8 [facility] Last Admin: 07/25/18 06:22 Dose: 4 mg Heparin Sodium (Porcine) (Heparin Na) 5,000 unit SC Q12 [facility] Last Admin: 07/24/18 22:06 Dose: 5,000 unit Hydralazine HCl (Apresoline Iv) 20 mg IV Q6H PRN PRN PRN Reason: SBP > 160 Sodium Chloride () 250 mls @ 15 mls/hr IV .[id number] PRN PRN Reason: SALINE FLUSH Sodium Chloride () 250 mls @ 15 mls/hr IV .[id number] PRN PRN Reason: SALINE FLUSH Sodium Chloride () 1,000 mls @ 150 mls/hr IV .Q6H40M [facility] Last Admin: 07/25/18 05:20 Dose: 150 mls/hr Fentanyl () 100 mls @ 2.5 mls/hr IV .Q40H [facility] Pantoprazole Sodium 40 mg/ (Sodium Chloride) 110 mls @ 330 mls/hr IV Q24 [facility] Last Admin: 07/24/18 10:53 Dose: 330 mls/hr Enteral Nutritional Formula (Vital Af 1.2 Tyrone Liquid) 1,000 mls @ 20 mls/hr GT .Q48H [facility] Last Admin: 07/24/18 08:07 Dose: 20 mls/hr Dopamine HCl/Dextrose () 800 mg in 250 mls @ 8.147 mls/hr IV .[id number] [facility] Last Admin: 07/24/18 11:30 Dose: 8.147 mls/hr Propofol (Diprivan) 1,000 mg in 100 mls @ 18.432 mls/hr CONT INF .Q5H26M [facility] Last Admin: 07/25/18 08:14 Dose: Not Given Labetalol HCl (Trandate) 20 mg IV Q4H PRN PRN PRN Reason: sbp>160 Last Admin: 07/24/18 13:53 Dose: 20 mg Lorazepam (Ativan) 2 mg IV Q2H PRN PRN PRN Reason: SPASMS Last Admin: 07/25/18 07:11 Dose: 2 mg Magnesium Hydroxide (Milk Of Magnesia) 30 ml PO DAILY PRN PRN PRN Reason: Constipation Multi-Ingredient Cream (Lacrilube) 1 applic OPHTHALMIC BID [facility] Last Admin: 07/24/18 22:06 Dose: 1 applicatio Ondansetron HCl (Zofran) 4 mg IV Q6H PRN PRN PRN Reason: Nausea Sodium Chloride () 5 - 15 ml IV UD PRN PRN Reason: SALINE FLUSH Last Admin: 07/25/18 05:11 Dose: 10 ml Medical Necessity - Tobacco Use Smoking Status: Current every day smoker Tobacco Use: Cigarettes Assessment/Plan All Active Problems Cardiac arrest (Acute) Metabolic acidosis, increased anion gap (Acute) Patient is a 32-year-old male who was brought to the emergency department following cardiac arrest. Patient had apparently been using methamphetamines for 3 days continuously. His initial assessment was consistent with metabolic acidosis following cardiac arrest, acute kidney injury, rhabdomyolysis, shock liver and anoxic brain injury intubated and transferred to the intensive care unit 1. Cardiac arrest suspected to be secondary to methamphetamine overdose. Patient presented with PEA successfully resuscitated however he ended up with respiratory failure and anoxic brain injury 2. Acute hypoxic respiratory failure secondary to patient's cardiac arrest intubated in the ED transferred to the intensive care unit vent management deferred to the vp of global marketing 3. Suspected anoxic brain injury patient undergo EEG on 07/25/2018 4. Acute kidney injury from hypoperfusion state following patient cardiac arrest on fluids kidney function appears to be improving 5. Shock liver 6. Acute rhabdomyolysis 7. History of bipolar disorder 8. Schizophrenia 9. Polysubstance abuse 10. GERD on Protonix 11. DVT prophylaxis SC heparin Code Visit Inpatient E&M: 92600 Subs Hosp L3
--- NOTE | 2018-07-25 08:35 | PN_ITS ---
Patient Problems: Active and Suspected Problems Cardiac arrest (Acute) Metabolic acidosis, increased anion gap (Acute) GERD (gastroesophageal reflux disease) (Suspected) Subjective: Patient is a 32-year-old male who was brought to the emergency department following cardiac arrest. Patient had apparently been using methamphetamines for 3 days continuously. His initial assessment was consistent with metabolic acidosis following cardiac arrest, acute kidney injury, rhabdomyolysis, shock liver and anoxic brain injury intubated and transferred to the intensive care unit Objective: GENERAL: Unresponsive HEENT: Atraumatic; moist oral mucosa EYES; Anicteric, Normal Conjunctiva NECK; supple, normal thyroid, no distended JVD. RESPIRATORY: Diminished to auscultation bilaterally, CARDIOVASCULAR: Regular S1 S2, GI: Nondistended, normoactive bowel sounds, EXTREMITIES: No edema, no clubbing, no cyanosis. MUSCULOSKELETAL: No Joint Tenderness; no muscle waisting NEURO: Unresponsive SKIN: Multiple tattoos on both extremities and trunk PSYCH; able to assess patient on the vent Vitals/I&O's: Vital Signs Temp Pulse Resp BP Pulse Ox 102.5 F H 78 15 140/80 H 100 07/25/18 08:00 07/25/18 08:00 07/25/18 08:00 07/25/18 08:00 07/25/18 08:00 Oxygen Delivery Method Mechanical Ventilator Weight: 83.9 kg Body Mass Index (BMI) 24.2 Intake and Output for Last 24 Hours 07/23/18 07/24/18 07/25/18 23:59 23:59 23:59 Intake Total 2995 / 2995 3830 / 3830 1679 / 1679 Output Total 545 / 545 1220 / 1220 4000 / 4000 Balance 2450 / 2450 2610 / 2610 -2321 / -2321 Microbiology Past 72 Hours 07/22/18 16:00 Sputum, Induced/Lukens Gram Stain - Final 07/22/18 16:00 Sputum, Induced/Lukens Respiratory Culture - Preliminary Appears to be normal respiratory jossy. Further studies to follow. Laboratory Results 07/24/18 13:30: WBC 9.6, RBC 3.39 L, Hgb 9.7 L, Hct 29.5 L, MCV 87.0, MCH 28.6, MCHC 32.9, RDW 12.8, RDW Differential 39.3, Plt Count 155, MPV 9.7, Immature Gran % (Auto) 0.300, Neut % (Auto) 86.8 H, Lymph % (Auto) 4.6 L, Stanley % (Auto) 8.3, Eos % (Auto) 0.0, Baso % (Auto) 0.0, Absolute Neuts (auto) 8.4 H, Absolute Lymphs (auto) 0.44 L, Total Counted Not Reportable 07/25/18 05:10: Sodium 152 H, Potassium 5.0, Chloride 120 H, Carbon Dioxide 24.0, Anion Gap 8, BUN 12, Creatinine 1.17, Estim Creat Clear Calc 104.33, Est GFR (MDRD) Af Amer 94, Est GFR (MDRD) Non-Af 77, BUN/Creatinine Ratio 10.3, Glucose 116 H, Calcium 8.9 07/25/18 05:10: WBC 11.3 H, RBC 4.77, Hgb 13.5, Hct 41.3, MCV 86.6, MCH 28.3, MCHC 32.7, RDW 13.4, RDW Differential 41.9, Plt Count 211, MPV 9.8, Immature Gran % (Auto) 0.200, Neut % (Auto) 88.1 H, Lymph % (Auto) 4.9 L, Stanley % (Auto) 6.7, Eos % (Auto) 0.0, Baso % (Auto) 0.1, Absolute Neuts (auto) 10.0 H, Absolute Lymphs (auto) 0.55 L, Total Counted Not Reportable 07/25/18 05:10: Total Creatine Kinase 1846 H Current Medications Acetaminophen (Tylenol Liquid) 650 mg GT Q4H PRN PRN PRN Reason: Fever >101 Last Admin: 07/24/18 04:43 Dose: 650 mg Aspirin (Aspirin) 325 mg PO DAILY@0800 [facility] Last Admin: 07/24/18 08:07 Dose: 325 mg Chlorhexidine Gluconate () 15 ml PO BID [facility] Last Admin: 07/24/18 22:09 Dose: 15 ml Chlorhexidine Gluconate () 1 each TOPICAL DAILY [facility] Last Admin: 07/24/18 22:07 Dose: 1 each Dexamethasone Sodium Phosphate (Decadron) 4 mg IV Q8 [facility] Last Admin: 07/25/18 06:22 Dose: 4 mg Heparin Sodium (Porcine) (Heparin Na) 5,000 unit SC Q12 [facility] Last Admin: 07/24/18 22:06 Dose: 5,000 unit Hydralazine HCl (Apresoline Iv) 20 mg IV Q6H PRN PRN PRN Reason: SBP > 160 Sodium Chloride () 250 mls @ 15 mls/hr IV .[id number] PRN PRN Reason: SALINE FLUSH Sodium Chloride () 250 mls @ 15 mls/hr IV .[id number] PRN PRN Reason: SALINE FLUSH Sodium Chloride () 1,000 mls @ 150 mls/hr IV .Q6H40M [facility] Last Admin: 07/25/18 05:20 Dose: 150 mls/hr Fentanyl () 100 mls @ 2.5 mls/hr IV .Q40H [facility] Pantoprazole Sodium 40 mg/ (Sodium Chloride) 110 mls @ 330 mls/hr IV Q24 [facility] Last Admin: 07/24/18 10:53 Dose: 330 mls/hr Enteral Nutritional Formula (Vital Af 1.2 Tyrone Liquid) 1,000 mls @ 20 mls/hr GT .Q48H [facility] Last Admin: 07/24/18 08:07 Dose: 20 mls/hr Dopamine HCl/Dextrose () 800 mg in 250 mls @ 8.147 mls/hr IV .[id number] [facility] Last Admin: 07/24/18 11:30 Dose: 8.147 mls/hr Propofol (Diprivan) 1,000 mg in 100 mls @ 18.432 mls/hr CONT INF .Q5H26M [facility] Last Admin: 07/25/18 08:14 Dose: Not Given Labetalol HCl (Trandate) 20 mg IV Q4H PRN PRN PRN Reason: sbp>160 Last Admin: 07/24/18 13:53 Dose: 20 mg Lorazepam (Ativan) 2 mg IV Q2H PRN PRN PRN Reason: SPASMS Last Admin: 07/25/18 07:11 Dose: 2 mg Magnesium Hydroxide (Milk Of Magnesia) 30 ml PO DAILY PRN PRN PRN Reason: Constipation Multi-Ingredient Cream (Lacrilube) 1 applic OPHTHALMIC BID [facility] Last Admin: 07/24/18 22:06 Dose: 1 applicatio Ondansetron HCl (Zofran) 4 mg IV Q6H PRN PRN PRN Reason: Nausea Sodium Chloride () 5 - 15 ml IV UD PRN PRN Reason: SALINE FLUSH Last Admin: 07/25/18 05:11 Dose: 10 ml Medical Necessity - Tobacco Use Smoking Status: Current every day smoker Tobacco Use: Cigarettes Assessment/Plan All Active Problems Cardiac arrest (Acute) Metabolic acidosis, increased anion gap (Acute) Patient is a 32-year-old male who was brought to the emergency department following cardiac arrest. Patient had apparently been using methamphetamines for 3 days continuously. His initial assessment was consistent with metabolic acidosis following cardiac arrest, acute kidney injury, rhabdomyolysis, shock liver and anoxic brain injury intubated and transferred to the intensive care unit 1. Cardiac arrest suspected to be secondary to methamphetamine overdose. Patient presented with PEA successfully resuscitated however he ended up with respiratory failure and anoxic brain injury 2. Acute hypoxic respiratory failure secondary to patient's cardiac arrest intubated in the ED transferred to the intensive care unit vent management deferred to the procurement buyer 3. Suspected anoxic brain injury patient undergo EEG on 07/25/2018 4. Acute kidney injury from hypoperfusion state following patient cardiac arrest on fluids kidney function appears to be improving 5. Shock liver 6. Acute rhabdomyolysis 7. History of bipolar disorder 8. Schizophrenia 9. Polysubstance abuse 10. GERD on Protonix 11. DVT prophylaxis SC heparin Code Visit Inpatient E&M: 92321 Subs Hosp L3
[2018-07-25] MEDS: Petrolatum,White 3.75GM OPTH.TUBE 1 APPLIC OPHTHALMIC ×2 (09:53→21:31)
[2018-07-25] MEDS: Chlorhexidine 15 ML PO ×2 (09:53→21:28)
[2018-07-25] MEDS: Heparin Injection (Vial) 5,000 UNIT/ML VIAL 5000 UNIT SC ×2 (09:54→21:25)
[2018-07-25] MEDS: Aspirin 325 MG Tablet GT (09:54)
[2018-07-25] MEDS: Vital AF 1.2 Cal Liquid 1,000 ML 20 ML GT (10:19)
--- NOTE | 2018-07-25 13:31 | CASEMGMT ---
SW spoke briefly w/pt's mother and friend in the room, offered support. SW remains available for support to pt's family. TARIQ Dixon, [employer]
--- NOTE | 2018-07-25 13:33 | CON.PCM_ITS ---
Problem List (1) Anoxic brain damage Status: Acute (2) Cardiac arrest Status: Acute (3) Seizure Status: Acute Reason for Consult Date of Consultation: 07/25/18 Reason for Consultation: anoxic braine damage, seizure, cardiac arrest History of Present Illness: The patient is a 32 year old AAM with PMH Bipolar mood d/o, drug abuse admitted s/p cardiac arrest on 07/22/18. History is obtained from medical records and nurse taking care of the patient. Per documentation patient had cardiac arrest on 07/22/18, estimated down time between 25-45 minutes per documentation, had seizures yesterday 07/24/18 following which he was loaded with Dilantin and Keppra. At present patient is off sedation/propofol since last (07/24/18) night, has no response to DPS, pupils are 4 mm dilated and fixed, does not breath over the ventilator, but has corneal and gag reflex. UDS showed amphetamine and methamphetamine positive [] Past Medical History Past Medical History (Chronic Problems): Chronic Problems Schizophrenia (Chronic) Drug abuse (Chronic) Methamphetamine abuse (Chronic) Allergies Penicillins [PCN] Allergy (Verified 11/23/16 17:03) Abd cramps/diarrhea Home Medications: Ambulatory Orders Medication Instructions Recorded Citalopram [Celexa] 40 mg PO DAILY 08/28/13 Paliperidone Palmitate [Invega 156 mg IM QHS 07/17/15 Sustenna] Ranitidine [Zantac] 150 mg PO BID 07/17/15 Surgical History: - - Unable to obtain since patient is intubated and sedated Smoking Status: Current every day smoker Tobacco Use: Cigarettes Drugs: - - UA is positive for methamphetamines, however given the patient is sedated and intubated unable to clarify all drugs used and how much alcohol is used. Review of Systems Constitutional: Reports: - - ROS could not be obatined since patient is comatose Patient Problems: Active and Suspected Problems Cardiac arrest (Acute) Metabolic acidosis, increased anion gap (Acute) GERD (gastroesophageal reflux disease) (Suspected) Anoxic brain damage (Acute) Seizure (Acute) - Physical Exam General: - - comatose s/p cardiac arrest on ventilator HEENT: Normocephalic Neck: Supple Lungs: Normal air movement Cardiovascular: Normal S1, Normal S2 Abdomen: Non Tender Extremities: No cyanosis Neurological: - - comatose, pupils B/L 4mm fixed and dilated not reacting to light, corneal and gag reflex present, no response to DPS, plantars B/L mute, gait/cerebellar/sensory could not be assessed. limited Neurology examination. Vital Signs Temp Pulse Resp BP Pulse Ox 95.7 F L 59 L 15 122/75 H 98 07/25/18 12:00 07/25/18 12:34 07/25/18 12:00 07/25/18 12:00 07/25/18 12:00 Oxygen Delivery Method Mechanical Ventilator Weight: 83.9 kg Body Mass Index (BMI) 24.2 Intake and Output for Last 24 Hours 07/23/18 07/24/18 07/25/18 23:59 23:59 23:59 Intake Total 2995 / 2995 3830 / 3830 2825 / 2825 Output Total 545 / 545 1220 / 1220 6300 / 6300 Balance 2450 / 2450 2610 / 2610 -3475 / -3475 Microbiology Past 72 Hours 07/22/18 16:00 Gram Stain - Final Sputum, Induced/Lukens Respiratory Culture - Final Mixed normal respiratory jossy. No Haemophilus, Streptococcus pneumoniae, beta-hemolytic Streptococcus or Staphylococcus aureus isolated. Laboratory Tests Past 24 Hrs 07/24/18 07/25/18 07/25/18 13:30 05:10 05:10 WBC 9.6 11.3 H RBC 3.39 L 4.77 Hgb 9.7 L 13.5 Hct 29.5 L 41.3 MCV 87.0 86.6 MCH 28.6 28.3 MCHC 32.9 32.7 RDW 12.8 13.4 RDW Differential 39.3 41.9 Plt Count 155 211 MPV 9.7 9.8 Immature Gran % (Auto) 0.300 0.200 Neut % (Auto) 86.8 H 88.1 H Lymph % (Auto) 4.[address] [place] % (Auto) 8.3 6.7 Eos % (Auto) 0.0 0.0 Baso % (Auto) 0.0 0.1 Absolute Neuts (auto) 8.4 H 10.0 H Absolute Lymphs (auto) 0.44 L 0.55 L Total Counted Not Reportable Not Reportable Sodium 152 H Potassium 5.0 Chloride 120 H Carbon Dioxide 24.0 Anion Gap 8 BUN 12 Creatinine 1.17 Estim Creat Clear Calc 104.33 Est GFR (MDRD) Af Amer 94 Est GFR (MDRD) Non-Af 77 BUN/Creatinine Ratio 10.3 Glucose 116 H Calcium 8.9 Total Bilirubin Direct Bilirubin AST ALT Alkaline Phosphatase Total Creatine Kinase Total Protein Albumin 07/25/18 07/25/18 05:10 05:10 WBC RBC Hgb Hct MCV MCH MCHC RDW RDW Differential Plt Count MPV Immature Gran % (Auto) Neut % (Auto) Lymph % (Auto) [place] % (Auto) Eos % (Auto) Baso % (Auto) Absolute Neuts (auto) Absolute Lymphs (auto) Total Counted Sodium Potassium Chloride Carbon Dioxide Anion Gap BUN Creatinine Estim Creat Clear Calc Est GFR (MDRD) Af Amer Est GFR (MDRD) Non-Af BUN/Creatinine Ratio Glucose Calcium Total Bilirubin Pending Direct Bilirubin Pending AST Pending ALT Pending Alkaline Phosphatase Pending Total Creatine Kinase 1846 H Total Protein Pending Albumin Pending Assessment/Plan All Active Problems Cardiac arrest (Acute) Metabolic acidosis, increased anion gap (Acute) Anoxic brain damage (Acute) Seizure (Acute) The patient is a 32 year old AAM with [facility] Bipolar mood d/o, drug abuse admitted s/p cardiac arrest on 07/22/18. History is obtained from medical records and nurse taking care of the patient. Per documentation patient had cardiac arrest on 07/22/18, estimated down time between 25-45 minutes per documentation, had seizures yesterday 07/24/18 following which he was loaded with Dilantin and Keppra. At present patient is off sedation/propofol since last (07/24/18) night, has no response to DPS, pupils are 4 mm dilated and fixed, does not breath over the ventilator, but has corneal and gag reflex. UDS showed amphetamine and methamphetamine positive. CT head done on 07/24/18 reported to show anoxic brain injury with cerebral and cerebellar edema with transtentorial shift Impression Anoxic brain injury S/P Cardiac arrest likely secondary to drug abuse Seizure Plan -Keppra 500 mg PO BID -EEG-shows severe slowing with low voltage -CT head reviewed- anoxic brain damage -Discussed case with patient's mother and sister at length -Poor prognosis discussed at length -Labs reviewed -GI/DVT prophylaxis -Further medical management per ICU/hospitalist team -Please call with questions if any -Thank you for allowing us to participate in patient's care and management Code Visit Inpatient E&M: 50303 Init Hosp L3
[2018-07-25] MEDS: DOPamine IV 800 MG/250 ML IV.SOLN. 8.147 MG IV ×2 (13:35→21:22)
[2018-07-25] MEDS: levETIRAcetam IV 100 ML 400 MG IV ×2 (13:35→21:23)
[2018-07-25 13:46] LABS: AST(SGOT) 118 U/L (15-37); Alanine Aminotransfer ALT/SGPT 136 U/L (16-61); Alkaline Phosphatase 46 U/L (45-117); Bilirubin, Direct 0.19 mg/dL (0.00-0.30); Globulin 3.9 g/dL (2.2-4.2); Protein, Total 6.9 g/dL (6.4-8.2)
--- NOTE | 2018-07-25 14:06 | EEG ---
- Electroencephalogram Date of service 07/25/2018 History EEG is being done in this 32 yr M to rule out seizures post cardiac arrest EEG Description: This is an 18 channel EEG with 10-20 lead placement system. Bipolar montages, Referential and Circumferential montages were reviewed. Photic stimulation was performed but Hyperventilation was not performed. The posterior dominant rhythm was absent. Photo stimulation did not elicit normal driving response or any abnormal photoparoxysmal response, Hyperventilation was not performed. Sleep was not identified. The background rhythm was in the delta frequency range with low voltage. There was no epileptiform discharges or electrographic seizures noted during this recording. There was EKG artefact and artefact from surrounding devices seen during the entire record EEG Interpretation This is an abnormal EEG due to the severe background slowing with very low voltage. This may be seen during generalized cerebral dysfunction, clinical correlation is advised. There is no epileptiform discharges or electrographic seizures noted during the record.
[2018-07-25 14:09] LABS: Pathologist Review Reviewed
--- NOTE | 2018-07-25 15:00 | CHAPLAIN ---
Type of Pastoral Visit ___ Initial Visit _x__ Follow-up Visit ___ On-call Visit ___ General Patient Visit ___ Spiritual Assessment ___ Family Conference ___ Bereavement ___ Rapid Response ___ Code Blue ___ Other (describe below) Pastoral Care Referral From ___ Patient _x__ Family ___ Nurse _x__ Physician ___ Restaurant Mgr ___ Glass Decorator ___ Other (describe below) Sacrament/Intervention ___ Active listening ___ Anointing ___ Faith ___ Bereavement ___ Communion ___ Lyndsey exploration ___ ___ Life review ___ Prayer ___ Reconciliation ___ Sacrament of Sick ___ Supportive presence ___ Wedding _x__ Other (describe below) Pastoral Comments met with mother in waiting room; mom of patient indicates that she is hanging in there; mom has support there at this time; went into room of patient and offered silent prayer
[2018-07-26] VITALS (43 sets, daily range): BP systolic 87–146; BP diastolic 44–86; PULSE 55–124; RESP 14–24; TEMP 36.3–38.5; O2SAT 92–100
[2018-07-26 04:52] LABS: Absolute Lymphocyte Count 1.02 X10^3/ul (0.83-4.51); Absolute Neutrophil Count 9.4 X10^3/uL (2.0-7.7); Hematocrit 38.6 % (40-54); Hemoglobin 12.5 g/dl (13.0-16.5); Lymphocyte # 1.02 X10^3/ul (4.0); Mean Corp Hgb Conc 32.4 g/gl (32-36); Mean Corpuscular Hgb 27.6 pg (27.0-32.0); Mean Corpuscular Volume 85.2 fL (80-94); Mean Platelet Vol. 9.3 fl (6.2-12.0); Monocyte% 7.9 % (0-10); Neutrophil # 9.43 X10^3/uL (2.7-7.7); Neutrophil % 82.9 % (47-70); Platelet Count 235 K/mm3 (150-450); RBC Distribution Width CV 13.2 % (11.6-14.6); RBC Distribution Width SD 41.4 fl (35.1-43.9); Red Blood Count 4.53 M/mm3 (4.6-6.2); White Blood Count 11.4 K/mm3 (4.4-11.0)
[2018-07-26 04:55] LABS: POSITIVE COUNT NO; POSITIVE DIFFERENTIAL NO; POSITIVE MORPHOLOGY NO
[2018-07-26] MEDS: 0.9% NaCl Peripheral Flush Adult/Peds IV (05:12)
[2018-07-26] MEDS: CHLORHEXIDINE GLUC 2% CLOTH 1 EACH TOWELETTE TOPICAL (05:12)
[2018-07-26 05:17] LABS: Anion Gap 9 (5-15); BUN 19 mg/dL (7-18); BUN/Creat Ratio 14.8 RATIO (10-20); Calcium,Total 8.4 mg/dL (8.5-10.1); Chloride 120 mmol/L (98-107); Creatinine, Serum 1.28 mg/dL (0.70-1.30); EST Glomerular Filtration Rate 70 mL/min (>60); Est Glom Filt Rate - Afr Amer 84 mL/min (>60); Estimated Creatinine Clearance 95.37 ml/min; Glucose 124 mg/dL (74-106); Sodium Level 155 mmol/L (136-145)
--- NOTE | 2018-07-26 06:55 | PCM.PN.INT ---
Subjective: The patient was seen and examined at the bedside this morning. Events from the last 24 hours have been reviewed. The patient is currently afebrile, hemodynamically stable and maintaining appropriate oxygen saturations with an FiO2 requirement of 25%. The patient's dopamine was able to be weaned off. Hemodynamics remained stable. Heart rate is within normal limits. Sodium has risen to 155. Objective: The patient's most recent lab work, culture data and imaging studies have all been personally reviewed. Surface echocardiogram revealed normal LV size and function with an ejection fraction of 50%. There was a mildly dilated RV with mild global RV systolic dysfunction and a pulmonary artery systolic pressure estimated to be 45 mmHg. Most recent head CT dated July 24 revealed sequelae of anoxic brain injury with diffuse cerebral edema and early transtentorial shift along with a subacute right-sided basal ganglia infarction. General: - - The patient remains intubated and mechanically ventilated. He is neurologically unchanged from previous. HEENT: Atraumatic, Normocephalic, - - Pupils are dilated and nonresponsive to light. Oral: Dry Mucosa, - - Endotracheal and OG tubes remain in place. Neck: Supple, No Nodes, Trachea Midline Lungs: No rhonchi, No wheeze, No rales, Diminished Cardiovascular: Regular rate, Regular Rhythm, Normal S1, Normal S2, No murmurs Abdomen: Bowel Sounds Present, Soft, Non-Distended Extremities: No clubbing, No cyanosis, No edema Skin: - - No significant change from previous. Musculoskeletal: No Muscle Wasting Lymphatic: No Cervical, Supraclavicular, or Inguinal Adenopathy Neurological: - - The patient remains off of all sedation and is nonresponsive to verbal and tactile stimulation. His brainstem reflexes, little nevertheless, remain intact. The patient does initiate spontaneous breaths on spontaneous mode mechanical ventilation. Vital Signs Temp Pulse Resp BP Pulse Ox 37.5 C H 99 18 93/44 L 98 07/26/18 06:00 07/26/18 06:00 07/26/18 06:00 07/26/18 06:00 07/26/18 06:00 Oxygen Delivery Method Mechanical Ventilator Weight: 181 lb 10.574 oz Body Mass Index (BMI) 24.2 Intake and Output for Last 24 Hours 07/24/18 07/25/18 07/26/18 23:59 23:59 23:59 Intake Total 3830 / 3830 4438 / 4438 2389 / 2389 Output Total 1220 / 1220 8300 / 8300 3600 / 3600 Balance 2610 / 2610 -3862 / -3862 -1211 / -1211 Labs (Last 48 Hours) 07/22/18 07/24/18 07/24/18 13:00 07:30 13:30 WBC 9.6 RBC 3.39 L Hgb 9.7 L Hct 29.5 L MCV 87.0 MCH 28.6 MCHC 32.9 RDW 12.8 RDW Differential 39.3 Plt Count 155 MPV 9.7 Immature Gran % (Auto) 0.300 Neut % (Auto) 86.8 H Lymph % (Auto) 4.6 L [place] % (Auto) 8.3 Eos % (Auto) 0.0 Baso % (Auto) 0.0 Absolute Neuts (auto) 8.4 H Absolute Lymphs (auto) 0.44 L Total Counted Not Reportable Diff Path Review Reviewed PT 16.7 H INR 1.4 APTT 33.3 Sodium Potassium Chloride Carbon Dioxide Anion Gap BUN Creatinine Estim Creat Clear Calc Est GFR (MDRD) Af Amer Est GFR (MDRD) Non-Af BUN/Creatinine Ratio Glucose Calcium Total Bilirubin Direct Bilirubin AST ALT Alkaline Phosphatase Total Creatine Kinase Total Protein Albumin Globulin 07/25/18 07/25/18 07/25/18 05:10 05:10 05:10 WBC 11.3 H RBC 4.77 Hgb 13.5 Hct 41.3 MCV 86.6 MCH 28.3 MCHC 32.7 RDW 13.4 RDW Differential 41.9 Plt Count 211 MPV 9.8 Immature Gran % (Auto) 0.200 Neut % (Auto) 88.1 H Lymph % (Auto) 4.9 L [place] % (Auto) 6.7 Eos % (Auto) 0.0 Baso % (Auto) 0.1 Absolute Neuts (auto) 10.0 H Absolute Lymphs (auto) 0.55 L Total Counted Not Reportable Diff Path Review PT INR APTT Sodium 152 H Potassium 5.0 Chloride 120 H Carbon Dioxide 24.0 Anion Gap 8 BUN 12 Creatinine 1.17 Estim Creat Clear Calc 104.33 Est GFR (MDRD) Af Amer 94 Est GFR (MDRD) Non-Af 77 BUN/Creatinine Ratio 10.3 Glucose 116 H Calcium 8.9 Total Bilirubin Direct Bilirubin AST ALT Alkaline Phosphatase Total Creatine Kinase 1846 H Total Protein Albumin Globulin 07/25/18 07/26/18 07/26/18 05:10 04:35 04:35 WBC 11.4 H RBC 4.53 L Hgb 12.5 L Hct 38.6 L MCV 85.2 MCH 27.6 MCHC 32.4 RDW 13.2 RDW Differential 41.4 Plt Count 235 MPV 9.3 Immature Gran % (Auto) 0.200 Neut % (Auto) 82.9 H Lymph % (Auto) 9.0 L [place] % (Auto) 7.9 Eos % (Auto) 0.0 Baso % (Auto) 0.0 Absolute Neuts (auto) 9.4 H Absolute Lymphs (auto) 1.02 Total Counted Not Reportable Diff Path Review PT INR APTT Sodium 155 H Potassium 4.0 Chloride 120 H Carbon Dioxide 26.0 Anion Gap 9 BUN 19 H Creatinine 1.28 Estim Creat Clear Calc 95.37 Est GFR (MDRD) Af Amer 84 Est GFR (MDRD) Non-Af 70 BUN/Creatinine Ratio 14.8 Glucose 124 H Calcium 8.4 L Total Bilirubin 0.60 Direct Bilirubin 0.19 AST 118 H ALT 136 H Alkaline Phosphatase 46 Total Creatine Kinase Total Protein 6.9 Albumin 3.0 L Globulin 3.9 Microbiology 07/22/18 16:00 Sputum, Induced/Lukens Gram Stain - Final 07/22/18 16:00 Sputum, Induced/Lukens Respiratory Culture - Final Mixed normal respiratory jossy. No Haemophilus, Streptococcus pneumoniae, beta-hemolytic Streptococcus or Staphylococcus aureus isolated. Clinical Impression(s) from Imaging Studies Chest X-Ray 07/22/18 13:05 IMPRESSION: The tip of the endotracheal tube is at 9.5 cm proximal to the amanda. Electronically Signed: Miah Sexton MD at 13:56 EST Tel [phone], Service support , KUB X-Ray 07/22/18 13:06 IMPRESSION: The tip of the nasogastric tube is in the proximal portion of the body of the stomach. Slightly dilated small bowel loops in the central abdomen. 4.4 round metallic BB seen overlying the left midabdomen. Electronically Signed: Miah Sexton MD at 13:58 EST Tel [phone], Service support , Brain CT 07/22/18 14:30 IMPRESSION: Normal unenhanced CT scan of the brain. Partial opacification of the left axillary sinus and mucosal thickening of the ethmoid sinuses. Electronically Signed: Miah Sexton MD at 15:30 EST Tel [phone], Service support , Chest X-Ray 07/22/18 15:37 IMPRESSION: Satisfactory position of the support lines and tubes. No acute thoracic pathology. Electronically Signed: Romain Salazar at 16:11 EST Tel , Service support , Brain CT 07/23/18 09:31 IMPRESSION: Probable small acute or subacute nonhemorrhagic right basal ganglia and this could be confirmed with MRI. Otherwise negative. Electronically Signed: Austyn Fair MD at 10:31 EST , Service support , Brain CT 07/24/18 16:21 IMPRESSION: 1. CT findings suggests late sequela of anoxic injury with findings suggestive of brain , diffuse cerebral and cerebellar edema and early transtentorial shift. 2. Subacute right-sided basal ganglia infarct. N.B. : The above information has been verbally conveyed by Josephine Kohli MD to Samantha Mancera RN, on 07/24/2018 18:34:04 (ET). Electronically Signed: Josephine Kohli MD at 17:57 EST , Service support , Medical Necessity - Tobacco Use Smoking Status: Current every day smoker Tobacco Use: Cigarettes Assessment/Plan All Active Problems Cardiac arrest (Acute) Metabolic acidosis, increased anion gap (Acute) Anoxic brain damage (Acute) Seizure (Acute) RECOMMENDATIONS: 1. Continue current supportive measures, pending goals of care discussion with family this morning. 2. Increase D5W infusion rate given rising sodium. 3. Continue dexamethasone as ordered. 4. Continue tube feeds. 5. Continue seizure precautions along with Keppra and as needed Ativan. 6. Await outcome of family discussion regarding goals of care. IMPRESSIONS: 1. Acute respiratory failure status post PEA cardiac arrest The patient was intubated in the setting of PEA cardiac arrest, which appears to have been precipitated by a recent methamphetamine binge. The patient's ventilator requirements are minimal. However, he appears to have significant neurological injury, which will certainly preclude his ability to be liberated from mechanical ventilatory support. Plan to continue current supportive measures for now. Tube feeds will be continued. 2. Methamphetamine abuse The patient had reportedly been using substantial amounts of methamphetamine recently. Patient did use methamphetamine 1 hour prior to presentation. Clinical suspicion for arrhythmia leading to arrest initially. We will continue to support hemodynamics. 3. Metabolic/anoxic encephalopathy/seizure activity The patient is currently nonresponsive and off of all sedative medications. Recommend to continue to withhold all sedating medications. Recent CT head did reveal findings concerning for anoxic brain injury, cerebral edema, subacute infarction and possible midline shift. The patient has also developed interval seizure activity, which is being treated with Keppra and Ativan. Neurology is following. Prognosis remains overall poor. There has been no change in the patient neurologically. 4. Hypernatremia The patient was noted to have a significant amount of output from his Hackett catheter overnight. His sodium has risen again this morning. D5W rate will be increased accordingly. 5. Subacute right basal ganglia infarct/cerebral edema As noted above, the patient's CT head did reveal significant findings concerning for anoxic brain injury along with cerebral edema and subacute infarction. He will be continued on Decadron as ordered. Neurology is following to assist with prognostication. I did meet with the patient's mother this morning at the bedside and updated her on the patient's condition. I explained options for moving forward, which included palliative withdrawal of life support versus proceeding with a tracheostomy and PEG tube placement. The patient's mother is going to discuss this further with additional family members this morning, after which time, she plans to come to a conclusion about the direction for future care. TIME: 50 minutes of critical care time, independent of procedures, was spent addressing the patient's acute respiratory failure status post PEA arrest, methamphetamine abuse, metabolic/anoxic encephalopathy, seizure activity, hypernatremia, cerebral edema, review of all data and collaboration with the care team. ([id number]) Code Visit 9xxxx: [id number] Critical care first hour
--- NOTE | 2018-07-26 06:58 | PN_ITS ---
Subjective: The patient was seen and examined at the bedside this morning. Events from the last 24 hours have been reviewed. The patient is currently afebrile, hemodynamically stable and maintaining appropriate oxygen saturations with an FiO2 requirement of 25%. The patient's dopamine was able to be weaned off. Hemodynamics remained stable. Heart rate is within normal limits. Sodium has risen to 155. Objective: The patient's most recent lab work, culture data and imaging studies have all been personally reviewed. Surface echocardiogram revealed normal LV size and function with an ejection fraction of 50%. There was a mildly dilated RV with mild global RV systolic dysfunction and a pulmonary artery systolic pressure es timated to be 45 mmHg. Most recent head CT dated July 24 revealed sequelae of anoxic brain injury with diffuse cerebral edema and early transtentorial shift along with a subacute right-sided basal ganglia infarction. General: - - The patient remains intubated and mechanically ventilated. He is neurologically unchanged from previous. HEENT: Atraumatic, Normocephalic, - - Pupils are dilated and nonresponsive to light. Oral: Dry Mucosa, - - Endotracheal and OG tubes remain in place. Neck: Supple, No Nodes, Trachea Midline Lungs: No rhonchi, No wheeze, No rales, Diminished Cardiovascular: Regular rate, Regular Rhythm, Normal S1, Normal S2, No murmurs Abdomen: Bowel Sounds Present, Soft, Non-Distended Extremities: No clubbing, No cyanosis, No edema Skin: - - No significant change from previous. Musculoskeletal: No Muscle Wasting Lymphatic: No Cervical, Supraclavicular, or Inguinal Adenopathy Neurological: - - The patient remains off of all sedation and is nonresponsive to verbal and tactile stimulation. His brainstem reflexes, little nevertheless, remain intact. The patient does initiate spontaneous breaths on spontaneous mode mechanical ventilation. Vital Signs Temp Pulse Resp BP Pulse Ox 37.5 C H 99 18 93/44 L 98 07/26/18 06:00 07/26/18 06:00 07/26/18 06:00 07/26/18 06:00 07/26/18 06:00 Oxygen Delivery Method Mechanical Ventilator Weight: 181 lb 10.574 oz Body Mass Index (BMI) 24.2 Intake and Output for Last 24 Hours 07/24/18 07/25/18 07/26/18 23:59 23:59 23:59 Intake Total 3830 / 3830 4438 / 4438 2389 / 2389 Output Total 1220 / 1220 8300 / 8300 3600 / 3600 Balance 2610 / 2610 -3862 / -3862 -1211 / -1211 Labs (Last 48 Hours) 07/22/18 07/24/18 07/24/18 13:00 07:30 13:30 WBC 9.6 RBC 3.39 L Hgb 9.7 L Hct 29.5 L MCV 87.0 MCH 28.6 MCHC 32.9 RDW 12.8 RDW Differential 39.3 Plt Count 155 MPV 9.7 Immature Gran % (Auto) 0.300 Neut % (Auto) 86.8 H Lymph % (Auto) 4.6 L [place] % (Auto) 8.3 Eos % (Auto) 0.0 Baso % (Auto) 0.0 Absolute Neuts (auto) 8.4 H Absolute Lymphs (auto) 0.44 L Total Counted Not Reportable Diff Path Review Reviewed PT 16.7 H INR 1.4 APTT 33.3 Sodium Potassium Chloride Carbon Dioxide Anion Gap BUN Creatinine Estim Creat Clear Calc Est GFR (MDRD) Af Amer Est GFR (MDRD) Non-Af BUN/Creatinine Ratio Glucose Calcium Total Bilirubin Direct Bilirubin AST ALT Alkaline Phosphatase Total Creatine Kinase Total Protein Albumin Globulin 07/25/18 07/25/18 07/25/18 05:10 05:10 05:10 WBC 11.3 H RBC 4.77 Hgb 13.5 Hct 41.3 MCV 86.6 MCH 28.3 MCHC 32.7 RDW 13.4 RDW Differential 41.9 Plt Count 211 MPV 9.8 Immature Gran % (Auto) 0.200 Neut % (Auto) 88.1 H Lymph % (Auto) 4.9 L [place] % (Auto) 6.7 Eos % (Auto) 0.0 Baso % (Auto) 0.1 Absolute Neuts (auto) 10.0 H Absolute Lymphs (auto) 0.55 L Total Counted Not Reportable Diff Path Review PT INR APTT Sodium 152 H Potassium 5.0 Chloride 120 H Carbon Dioxide 24.0 Anion Gap 8 BUN 12 Creatinine 1.17 Estim Creat Clear Calc 104.33 Est GFR (MDRD) Af Amer 94 Est GFR (MDRD) Non-Af 77 BUN/Creatinine Ratio 10.3 Glucose 116 H Calcium 8.9 Total Bilirubin Direct Bilirubin AST ALT Alkaline Phosphatase Total Creatine Kinase 1846 H Total Protein Albumin Globulin 07/25/18 07/26/18 07/26/18 05:10 04:35 04:35 WBC 11.4 H RBC 4.53 L Hgb 12.5 L Hct 38.6 L MCV 85.2 MCH 27.6 MCHC 32.4 RDW 13.2 RDW Differential 41.4 Plt Count 235 MPV 9.3 Immature Gran % (Auto) 0.200 Neut % (Auto) 82.9 H Lymph % (Auto) 9.0 L [place] % (Auto) 7.9 Eos % (Auto) 0.0 Baso % (Auto) 0.0 Absolute Neuts (auto) 9.4 H Absolute Lymphs (auto) 1.02 Total Counted Not Reportable Diff Path Review PT INR APTT Sodium 155 H Potassium 4.0 Chloride 120 H Carbon Dioxide 26.0 Anion Gap 9 BUN 19 H Creatinine 1.28 Estim Creat Clear Calc 95.37 Est GFR (MDRD) Af Amer 84 Est GFR (MDRD) Non-Af 70 BUN/Creatinine Ratio 14.8 Glucose 124 H Calcium 8.4 L Total Bilirubin 0.60 Direct Bilirubin 0.19 AST 118 H ALT 136 H Alkaline Phosphatase 46 Total Creatine Kinase Total Protein 6.9 Albumin 3.0 L Globulin 3.9 Microbiology 07/22/18 16:00 Sputum, Induced/Lukens Gram Stain - Final 07/22/18 16:00 Sputum, Induced/Lukens Respiratory Culture - Final Mixed normal respiratory jossy. No Haemophilus, Streptococcus pneumoniae, beta-hemolytic Streptococcus or Staphylococcus aureus isolated. Clinical Impression(s) from Imaging Studies Chest X-Ray 07/22/18 13:05 IMPRESSION: The tip of the endotracheal tube is at 9.5 cm proximal to the amanda. Electronically Signed: Miah Sexton MD at 13:56 EST Tel [phone], Service support , KUB X-Ray 07/22/18 13:06 IMPRESSION: The tip of the nasogastric tube is in the proximal portion of the body of the stomach. Slightly dilated small bowel loops in the central abdomen. 4.4 round metallic BB seen overlying the left midabdomen. Electronically Signed: Miah Sexton MD at 13:58 EST Tel [phone], Service support , Brain CT 07/22/18 14:30 IMPRESSION: Normal unenhanced CT scan of the brain. Partial opacification of the left axillary sinus and mucosal thickening of the ethmoid sinuses. Electronically Signed: Miah Sexton MD at 15:30 EST Tel [phone], Service support , Chest X-Ray 07/22/18 15:37 IMPRESSION: Satisfactory position of the support lines and tubes. No acute thoracic pathology. Electronically Signed: Romain Salazar at 16:11 EST Tel , Service support , Brain CT 07/23/18 09:31 IMPRESSION: Probable small acute or subacute nonhemorrhagic right basal ganglia and this could be confirmed with MRI. Otherwise negative. Electronically Signed: Austyn Fair MD at 10:31 EST , Service support , Brain CT 07/24/18 16:21 IMPRESSION: 1. CT findings suggests late sequela of anoxic injury with findings suggestive of brain , diffuse cerebral and cerebellar edema and early transtentorial shift. 2. Subacute right-sided basal ganglia infarct. N.B. : The above information has been verbally conveyed by Josephine Kohli MD to Samantha Mancera RN, on 07/24/2018 18:34:04 (ET). Electronically Signed: Josephine Kohli MD at 17:57 EST , Service support , Medical Necessity - Tobacco Use Smoking Status: Current every day smoker Tobacco Use: Cigarettes Assessment/Plan All Active Problems Cardiac arrest (Acute) Metabolic acidosis, increased anion gap (Acute) Anoxic brain damage (Acute) Seizure (Acute) RECOMMENDATIONS: 1. Continue current supportive measures, pending goals of care discussion with family this morning. 2. Increase D5W infusion rate given rising sodium. 3. Continue dexamethasone as ordered. 4. Continue tube feeds. 5. Continue seizure precautions along with Keppra and as needed Ativan. 6. Await outcome of family discussion regarding goals of care. IMPRESSIONS: 1. Acute respiratory failure status post PEA cardiac arrest The patient was intubated in the setting of PEA cardiac arrest, which appears to have been precipitated by a recent methamphetamine binge. The patient's ventilator requirements are minimal. However, he appears to have significant neurological injury, which will certainly preclude his ability to be liberated from mechanical ventilatory support. Plan to continue current supportive measures for now. Tube feeds will be continued. 2. Methamphetamine abuse The patient had reportedly been using substantial amounts of methamphetamine recently. Patient did use methamphetamine 1 hour prior to presentation. Clinical suspicion for arrhythmia leading to arrest initially. We will continue to support hemodynamics. 3. Metabolic/anoxic encephalopathy/seizure activity The patient is currently nonresponsive and off of all sedative medications. Recommend to continue to withhold all sedating medications. Recent CT head did reveal findings concerning for anoxic brain injury, cerebral edema, subacute infarction and possible midline shift. The patient has also developed interval seizure activity, which is being treated with Keppra and Ativan. Neurology is following. Prognosis remains overall poor. There has been no change in the patient neurologically. 4. Hypernatremia The patient was noted to have a significant amount of output from his Hackett catheter overnight. His sodium has risen again this morning. D5W rate will be increased accordingly. 5. Subacute right basal ganglia infarct/cerebral edema As noted above, the patient's CT head did reveal significant findings concerning for anoxic brain injury along with cerebral edema and subacute infarction. He will be continued on Decadron as ordered. Neurology is following to assist with prognostication. I did meet with the patient's mother this morning at the bedside and updated her on the patient's condition. I explained options for moving forward, which included palliative withdrawal of life support versus proceeding with a tracheostomy and PEG tube placement. The patient's mother is going to discuss this further with additional family members this morning, after which time, she plans to come to a conclusion about the direction for future care. TIME: 50 minutes of critical care time, independent of procedures, was spent addressing the patient's acute respiratory failure status post PEA arrest, methamphetamine abuse, metabolic/anoxic encephalopathy, seizure activity, hypernatremia, cerebral edema, review of all data and collaboration with the care team. ([id number]) Code Visit 9xxxx: [id number] Critical care first hour
--- NOTE | 2018-07-26 07:33 | PN_ITS ---
Patient Problems: Active and Suspected Problems Cardiac arrest (Acute) Metabolic acidosis, increased anion gap (Acute) GERD (gastroesophageal reflux disease) (Suspected) Anoxic brain damage (Acute) Seizure (Acute) Subjective: Patient seen still remains unresponsive on the vent. EEG performed on 07/25/2018 demonstrated an abnormal EEG due to the severe background slowing with very low voltage. This may be seen during generalized cerebral dysfunction, clinical correlation is advised. There is no epileptiform discharges or elect rographic seizures noted during the record. Per nursing staff patient has a strong gag reflex. Sodium is trending up at 154. Plan is for family discussion later this morning to decide terminal pastor mims continues aggressive medical care which will involve placement of trach and a PEG and possible transfer to an LTAC Objective: GENERAL: Unresponsive HEENT: Atraumatic; moist oral mucosa EYES; Anicteric, Normal Conjunctiva NECK; supple, normal thyroid, no distended JVD. RESPIRATORY: Diminished to auscultation bilaterally, CARDIOVASCULAR: Regular S1 S2, GI: Nondistended, normoactive bowel sounds, EXTREMITIES: No edema, no clubbing, no cyanosis. MUSCULOSKELETAL: No Joint Tenderness; no muscle waisting NEURO: Unresponsive SKIN: Multiple tattoos on both extremities and trunk PSYCH; able to assess patient on the vent Vitals/I&O's: Vital Signs Temp Pulse Resp BP Pulse Ox 99.5 F H 99 18 93/44 L 98 07/26/18 06:00 07/26/18 06:00 07/26/18 06:00 07/26/18 06:00 07/26/18 06:00 Oxygen Delivery Method Mechanical Ventilator Weight: 82.4 kg Body Mass Index (BMI) 24.2 Intake and Output for Last 24 Hours 07/24/18 07/25/18 07/26/18 23:59 23:59 23:59 Intake Total 3830 / 3830 4438 / 4438 2389 / 2389 Output Total 1220 / 1220 8300 / 8300 3600 / 3600 Balance 2610 / 2610 -3862 / -3862 -1211 / -1211 Microbiology Past 72 Hours 07/22/18 16:00 Sputum, Induced/Lukens Gram Stain - Final 07/22/18 16:00 Sputum, Induced/Lukens Respiratory Culture - Final Mixed normal respiratory jossy. No Haemophilus, Streptococcus pneumoniae, beta-hemolytic Streptococcus or Staphylococcus aureus isolated. Laboratory Results 07/22/18 13:00: Diff Path Review Reviewed 07/25/18 05:10: Total Bilirubin 0.60, Direct Bilirubin 0.19, AST 118 H, ALT 136 H, Alkaline Phosphatase 46, Total Protein 6.9, Albumin 3.0 L, Globulin 3.9 07/26/18 04:35: WBC 11.4 H, RBC 4.53 L, Hgb 12.5 L, Hct 38.6 L, MCV 85.2, MCH 27.6, MCHC 32.4, RDW 13.2, RDW Differential 41.4, Plt Count 235, MPV 9.3, Immature Gran % (Auto) 0.200, Neut % (Auto) 82.9 H, Lymph % (Auto) 9.0 L, Walker % (Auto) 7.9, Eos % (Auto) 0.0, Baso % (Auto) 0.0, Absolute Neuts (auto) 9.4 H, Absolute Lymphs (auto) 1.02, Total Counted Not Reportable 07/26/18 04:35: Sodium 155 H, Potassium 4.0, Chloride 120 H, Carbon Dioxide 26 .0, Anion Gap 9, BUN 19 H, Creatinine 1.28, Estim Creat Clear Calc 95.37, Est GFR (MDRD) Af Amer 84, Est GFR (MDRD) Non-Af 70, BUN/Creatinine Ratio 14.8, Glucose 124 H, Calcium 8.4 L Current Medications Acetaminophen (Tylenol Liquid) 650 mg GT Q4H PRN PRN PRN Reason: Fever >101 Last Admin: 07/24/18 04:43 Dose: 650 mg Aspirin (Aspirin) 325 mg GT DAILY [facility] Last Admin: 07/25/18 09:54 Dose: 325 mg Chlorhexidine Gluconate () 15 ml PO BID [facility] Last Admin: 07/25/18 21:28 Dose: 15 ml Chlorhexidine Gluconate () 1 each TOPICAL DAILY [facility] Last Admin: 07/26/18 05:12 Dose: 1 each Dexamethasone Sodium Phosphate (Decadron) 4 mg IV Q8 [facility] Last Admin: 07/26/18 05:12 Dose: 4 mg Heparin Sodium (Porcine) (Heparin Na) 5,000 unit SC Q12 [facility] Last Admin: 07/25/18 21:25 Dose: 5,000 unit Hydralazine HCl (Apresoline Iv) 20 mg IV Q6H PRN PRN PRN Reason: SBP > 160 Sodium Chloride () 250 mls @ 15 mls/hr IV .[id number] PRN PRN Reason: SALINE FLUSH Sodium Chloride () 250 mls @ 15 mls/hr IV .[id number] PRN PRN Reason: SALINE FLUSH Enteral Nutritional Formula (Vital Af 1.2 [place] Liquid) 1,000 mls @ 20 mls/hr GT .Q48H [facility] Last Admin: 07/25/18 10:19 Dose: 20 mls/hr Dextrose () 1,000 mls @ 150 mls/hr IV .[id number] [facility] Last Admin: 07/26/18 06:55 Dose: 150 mls/hr Levetiracetam (Keppra Iv) 100 mls @ 400 mls/hr IV Q12 [facility] Last Admin: 07/25/18 21:23 Dose: 400 mls/hr Epinephrine HCl 1 mg/ Dextrose 251 mls @ 15.06 mls/hr IV .[id number] [facility] Last Admin: 07/25/18 21:17 Dose: Not Given Dopamine HCl/Dextrose () 800 mg in 250 mls @ 8.147 mls/hr IV .[id number] [facility] Last Admin: 07/25/18 21:22 Dose: 8.147 mls/hr Labetalol HCl (Trandate) 20 mg IV Q4H PRN PRN PRN Reason: sbp>160 Last Admin: 07/24/18 13:53 Dose: 20 mg Lansoprazole (Prevacid) 30 mg GT Q24 [facility] Last Admin: 07/25/18 12:37 Dose: 30 mg Lorazepam (Ativan) 2 mg IV Q2H PRN PRN PRN Reason: SPASMS Last Admin: 07/25/18 07:11 Dose: 2 mg Magnesium Hydroxide (Milk Of Magnesia) 30 ml PO DAILY PRN PRN PRN Reason: Constipation Multi-Ingredient Cream (Lacrilube) 1 applic OPHTHALMIC BID [facility] Last Admin: 07/25/18 21:31 Dose: 1 applicatio Ondansetron HCl (Zofran) 4 mg IV Q6H PRN PRN PRN Reason: Nausea Sodium Chloride () 5 - 15 ml IV UD PRN PRN Reason: SALINE FLUSH Last Admin: 07/26/18 05:12 Dose: 15 ml Medical Necessity - Tobacco Use Smoking Status: Current every day smoker Tobacco Use: Cigarettes Assessment/Plan All Active Problems Cardiac arrest (Acute) Metabolic acidosis, increased anion gap (Acute) Anoxic brain damage (Acute) Seizure (Acute) Patient is a 32-year-old male who was brought to the emergency department following cardiac arrest. Patient had apparently been using methamphetamines for 3 days continuously. His initial assessment was consistent with metabolic acidosis following cardiac arrest, acute kidney injury, rhabdomyolysis, shock liver and anoxic brain injury intubated and transferred to the intensive care unit 1. Cardiac arrest suspected to be secondary to methamphetamine overdose. Patient presented with PEA successfully resuscitated however he ended up with respiratory failure and anoxic brain injury; EEG performed on 07/25/2018 demonstrated an abnormal EEG due to the severe background slowing with very low voltage. This may be seen during generalized cerebral dysfunction, clinical correlation is advised. There is no epileptiform discharges or electrographic seizures noted during the record.Plan is for family discussion later this morning to decide terminal weaning versus continues aggressive medical care which will involve placement of trach and a PEG and possible transfer to an LTAC 2. Acute hypoxic respiratory failure secondary to patient's cardiac arrest intubated in the ED transferred to the intensive care unit vent management de fayd to the director clinical research 3. Suspected anoxic brain injury patient undergo EEG on 07/25/2018: Results as discussed above 4. Acute kidney injury from hypoperfusion state following patient cardiac a rrest on fluids kidney function appears to be improving 5. Shock liver 6. Acute rhabdomyolysis 7. Hypernatremia patient started on D5W with monitoring of electrolyte 8. History of bipolar disorder 9. Schizophrenia 10. Polysubstance abuse 11. GERD on Protonix 12. DVT prophylaxis SC heparin Code Visit Inpatient E&M: 90128 Subs Hosp L3
[2018-07-26] MEDS: Aspirin 325 MG Tablet GT (09:03)
[2018-07-26] MEDS: Heparin Injection (Vial) 5,000 UNIT/ML VIAL 5000 UNIT SC (09:04)
[2018-07-26] MEDS: levETIRAcetam IV 100 ML 400 MG IV ×2 (09:04→21:24)
[2018-07-26] MEDS: Chlorhexidine 15 ML PO ×2 (09:04→21:22)
[2018-07-26] MEDS: Petrolatum,White 3.75GM OPTH.TUBE 1 APPLIC OPHTHALMIC ×2 (09:05→21:23)
[2018-07-26] MEDS: Vital AF 1.2 Cal Liquid 1,000 ML 20 ML GT (10:54)
--- NOTE | 2018-07-26 14:01 | CASEMGMT ---
As per physician, family has decided to go forward with a trach and peg, so will need LTACH. SW let CM know, will likely speak w/family tomorrow regarding this. TARIQ Dixon, [employer]
--- NOTE | 2018-07-26 17:38 | PCM.PN.BLA ---
Progress Note Asked to see the patient at the request of Dr. Lopez for tracheotomy placement. HPI: 32 yo black male arrested on 07/22/18 after using methamphetamine. He was given narcan in the field to no avail. He had CPR for a prolonged time and was brought to the ER. He apparently still has brainstem reflexes but has suffered anoxic brain (cortical) injury. He is anticipated to have a prolonged mechanical ventilatory requirement. The family would like to pursue all medical treatment. Past Medical History Past Medical History (Chronic Problems): Chronic Problems Schizophrenia (Chronic) Drug abuse (Chronic) Methamphetamine abuse (Chronic) Allergies Penicillins [PCN] Allergy (Verified 11/23/16 17:03) Abd cramps/diarrhea Home Medications: Ambulatory Orders Medication Instructions Recorded Citalopram [Celexa] 40 mg PO DAILY 08/28/13 Paliperidone Palmitate [Invega 156 mg IM QHS 07/17/15 Sustenna] Ranitidine [Zantac] 150 mg PO BID 07/17/15 Surgical History: - - Unable to obtain since patient is intubated and sedated Smoking Status: Current every day smoker Tobacco Use: Cigarettes Drugs: - - UA is positive for methamphetamines ROS unable to be obtained PE: Unarousable with deep sternal rub ETT, OG in place Long neck without masses or adenopathy. Landmarks are easily palpable A: Anoxic brain injury Respiratory failure P: The patient is on the schedule for tracheotomy tomorrow afternoon. Will hold tube feeds and heparin tomorrow.
[2018-07-27] VITALS (33 sets, daily range): BP systolic 74–212; BP diastolic 37–158; PULSE 63–176; RESP 0–16; TEMP 35.7–37.7; O2SAT 91–100
[2018-07-27] MEDS: Metoprolol Tartrate 5 MG/5 ML Vial IV (01:14)
--- NOTE | 2018-07-27 01:34 | NURSING ---
Pt was repositioned and suctioned, at this time he became tachycardic HR as high as 177 and had two episodes of V-Tach 25 beat runs each. BP was elevated to 212/158, PRN IV metoprolol was given at this time, HR dropped to the low 100's at this time and BP is now 117/82. was notified she ordered a MAG level at this time and per parameters on the IV metoprolol to hold for HR less than 110 and give for anything over 110.
[2018-07-27] MEDS: CHLORHEXIDINE GLUC 2% CLOTH 1 EACH TOWELETTE TOPICAL (01:42)
[2018-07-27 02:22] LABS: Magnesium 2.3 mg/dL (1.6-2.6)
[2018-07-27 04:22] LABS: Absolute Lymphocyte Count 0.95 X10^3/ul (0.83-4.51); Absolute Neutrophil Count 11.5 X10^3/uL (2.0-7.7); Basophil# 0.01 X10^3/uL; Basophil% 0.1 % (0-1); Hematocrit 38.4 % (40-54); Hemoglobin 12.3 g/dl (13.0-16.5); Lymphocyte # 0.95 X10^3/ul (4.0); Lymphocyte % 7.1 % (19-41); Mean Corpuscular Hgb 28.4 pg (27.0-32.0); Mean Corpuscular Volume 88.7 fL (80-94); Mean Platelet Vol. 9.6 fl (6.2-12.0); Monocyte# 0.83 X10^3/uL; Monocyte% 6.2 % (0-10); Neutrophil # 11.48 X10^3/uL (2.7-7.7); Neutrophil % 86.3 % (47-70); Platelet Count 227 K/mm3 (150-450); RBC Distribution Width CV 13.6 % (11.6-14.6); RBC Distribution Width SD 43.3 fl (35.1-43.9); Red Blood Count 4.33 M/mm3 (4.6-6.2); White Blood Count 13.3 K/mm3 (4.4-11.0)
[2018-07-27 04:25] LABS: POSITIVE COUNT NO; POSITIVE DIFFERENTIAL NO; POSITIVE MORPHOLOGY NO
[2018-07-27 04:30] LABS: International Normalized Ratio 1.2; Prothrombin Time (Protime)PT. 14.9 SECONDS (11.7-14.9)
[2018-07-27 04:38] LABS: Anion Gap 7 (5-15); BUN 19 mg/dL (7-18); BUN/Creat Ratio 14.3 RATIO (10-20); Calcium,Total 8.7 mg/dL (8.5-10.1); Chloride 123 mmol/L (98-107); Creatinine, Serum 1.33 mg/dL (0.70-1.30); EST Glomerular Filtration Rate 67 mL/min (>60); Est Glom Filt Rate - Afr Amer 81 mL/min (>60); Estimated Creatinine Clearance 91.78 ml/min; Glucose 132 mg/dL (74-106); Potassium 4.3 mmol/L (3.5-5.1); Sodium Level 158 mmol/L (136-145)
--- NOTE | 2018-07-27 07:07 | PCM.PN.INT ---
Subjective: The patient was seen and examined at the bedside this morning. Events from the last 24 hours have been reviewed. The patient has been hypothermic with tenuous hemodynamics. A rapid response team had to be called yesterday as the patient did develop SVT, which did require medical treatment. The patient has become more unstable from a medical perspective over the last 24 hours. Review of the patient this morning revealed findings concerning for potential brain . The patient no longer initiate spontaneous breaths on pressure support. In addition, he no longer has a gag with deep suctioning of his airway. I did have a lengthy discussion with the patient's mother and extended family yesterday regarding his overall prognosis and future goals of care. Despite my recommendations to the contrary, they had elected to pursue tracheostomy and PEG tube placement. However, in light of the patient's recent clinical changes, will need to pursue a brain workup. The patient's bedside examination was consistent with coma. The patient lacked brainstem reflexes and was not overbreathing the ventilator. The patient's core temperature was greater than 36 ?C and his blood pressure was greater than 100 mm systolic. An arterial blood gas revealed a normal PCO2 level. Therefore, the patient was deemed to be a candidate for apnea testing. He was preoxygenated with 100% O2. He was subsequently disconnected from the ventilator. Supplemental oxygen via tracheal cannula was delivered throughout the testing. The patient remained hemodynamically stable without any arrhythmias throughout the procedure. His O2 oxygen saturation remained in the 90s. There was no evidence of abdominal or chest wall excursion throughout the entire test. No involuntary movements were noted. After approximately 8 minutes, an arterial blood gas was obtained and the patient was reconnected to the ventilator circuit. Subsequent arterial blood gas did reveal a PCO2 level of 70 mmHg. Based upon my examination of the patient and following the conclusion of the apnea test, the patient is hereby deemed to be brain . The patient was subsequently pronounced at 12:57 PM on July 27, 2018. The family is aware of the diagnosis. [facility] is to discuss option of donation with the family. Objective: The patient's most recent lab work, culture data and imaging studies have all been personally reviewed. Surface echocardiogram revealed normal LV size and function with an ejection fraction of 50%. There was a mildly dilated RV with mild global RV systolic dysfunction and a pulmonary artery systolic pressure estimated to be 45 mmHg. Most recent head CT dated July 24 revealed sequelae of anoxic brain injury with diffuse cerebral edema and early transtentorial shift along with a subacute right-sided basal ganglia infarction. General: - - The patient remains intubated and mechanically ventilated. HEENT: Atraumatic, Normocephalic, - - Fixed and dilated pupils. No pupillary reflex to light. Oral: Dry Mucosa, - - Endotracheal and OG tubes remain in place. Neck: Supple, No Nodes, Trachea Midline Lungs: No rhonchi, No wheeze, No rales, Diminished Cardiovascular: Regular rate, Regular Rhythm, Normal S1, Normal S2, No murmurs Abdomen: Bowel Sounds Present, Soft, Non Tender, Non-Distended Extremities: No clubbing, No cyanosis, No edema Skin: No breakdown Musculoskeletal: No Muscle Wasting Lymphatic: No Cervical, Supraclavicular, or Inguinal Adenopathy Neurological: - - The patient is nonresponsive to both verbal and noxious stimulation. Pupils are midrange dilated without a response to light. No corneal reflex was noted. No facial movement to noxious stimulation was noted. No gag reflex was present and the patient did not attempt to initiate spontaneous breaths on the ventilator. Vital Signs Temp Pulse Resp BP Pulse Ox 35.8 C L 71 14 82/49 L 94 07/27/18 07:00 07/27/18 07:00 07/27/18 07:00 07/27/18 07:00 07/27/18 07:00 Oxygen Delivery Method Mechanical Ventilator Weight: 176 lb 5.917 oz Body Mass Index (BMI) 24.2 Intake and Output for Last 24 Hours 07/25/18 07/26/18 07/27/18 23:59 23:59 23:59 Intake Total 4438 / 4438 6485 / 6485 1329 / 1329 Output Total 8300 / 8300 9650 / 9650 950 / 950 Balance -3862 / -3862 -3165 / -3165 379 / 379 Labs (Last 48 Hours) 07/22/18 07/25/18 07/26/18 13:00 05:10 04:35 WBC 11.4 H RBC 4.53 L Hgb 12.5 L Hct 38.6 L MCV 85.2 MCH 27.6 MCHC 32.4 RDW 13.2 RDW Differential 41.4 Plt Count 235 MPV 9.3 Immature Gran % (Auto) 0.200 Neut % (Auto) 82.9 H Lymph % (Auto) 9.0 L [place] % (Auto) 7.9 Eos % (Auto) 0.0 Baso % (Auto) 0.0 Absolute Neuts (auto) 9.4 H Absolute Lymphs (auto) 1.02 Total Counted Not Reportable Diff Path Review Reviewed PT INR APTT Sodium Potassium Chloride Carbon Dioxide Anion Gap BUN Creatinine Estim Creat Clear Calc Est GFR (MDRD) Af Amer Est GFR (MDRD) Non-Af BUN/Creatinine Ratio Glucose Calcium Magnesium Total Bilirubin 0.60 Direct Bilirubin 0.19 AST 118 H ALT 136 H Alkaline Phosphatase 46 Total Protein 6.9 Albumin 3.0 L Globulin 3.9 07/26/18 07/27/18 07/27/18 04:35 01:40 04:10 WBC 13.3 H RBC 4.33 L Hgb 12.3 L Hct 38.4 L MCV 88.7 MCH 28.4 MCHC 32.0 RDW 13.6 RDW Differential 43.3 Plt Count 227 MPV 9.6 Immature Gran % (Auto) 0.300 Neut % (Auto) 86.3 H Lymph % (Auto) 7.1 L [place] % (Auto) 6.2 Eos % (Auto) 0.0 Baso % (Auto) 0.1 Absolute Neuts (auto) 11.5 H Absolute Lymphs (auto) 0.95 Total Counted Not Reportable Diff Path Review PT INR APTT Sodium 155 H Potassium 4.0 Chloride 120 H Carbon Dioxide 26.0 Anion Gap 9 BUN 19 H Creatinine 1.28 Estim Creat Clear Calc 95.37 Est GFR (MDRD) Af Amer 84 Est GFR (MDRD) Non-Af 70 BUN/Creatinine Ratio 14.8 Glucose 124 H Calcium 8.4 L Magnesium 2.3 Total Bilirubin Direct Bilirubin AST ALT Alkaline Phosphatase Total Protein Albumin Globulin 07/27/18 07/27/18 04:10 04:10 WBC RBC Hgb Hct MCV MCH MCHC RDW RDW Differential Plt Count MPV Immature Gran % (Auto) Neut % (Auto) Lymph % (Auto) [place] % (Auto) Eos % (Auto) Baso % (Auto) Absolute Neuts (auto) Absolute Lymphs (auto) Total Counted Diff Path Review PT 14.9 INR 1.2 APTT 32.0 Sodium 158 H Potassium 4.3 Chloride 123 H Carbon Dioxide 28.0 Anion Gap 7 BUN 19 H Creatinine 1.33 H Estim Creat Clear Calc 91.78 Est GFR (MDRD) Af Amer 81 Est GFR (MDRD) Non-Af 67 BUN/Creatinine Ratio 14.3 Glucose 132 H Calcium 8.7 Magnesium Total Bilirubin Direct Bilirubin AST ALT Alkaline Phosphatase Total Protein Albumin Globulin Microbiology 07/24/18 13:30 Blood Culture (Wb) - Arm Right Blood Culture - Preliminary No growth in 48 hours. 07/24/18 13:30 Blood Culture (Wb) - Arm Right Blood Culture - Preliminary No growth in 48 hours. 07/22/18 16:00 Sputum, Induced/Lukens Gram Stain - Final 07/22/18 16:00 Sputum, Induced/Lukens Respiratory Culture - Final Mixed normal respiratory jossy. No Haemophilus, Streptococcus pneumoniae, beta-hemolytic Streptococcus or Staphylococcus aureus isolated. Clinical Impression(s) from Imaging Studies Chest X-Ray 07/22/18 13:05 IMPRESSION: The tip of the endotracheal tube is at 9.5 cm proximal to the amanda. Electronically Signed: Miah Sexton MD at 13:56 EST Tel [phone], Service support , KUB X-Ray 07/22/18 13:06 IMPRESSION: The tip of the nasogastric tube is in the proximal portion of the body of the stomach. Slightly dilated small bowel loops in the central abdomen. 4.4 round metallic BB seen overlying the left midabdomen. Electronically Signed: Miah Sexton MD at 13:58 EST Tel [phone], Service support , Brain CT 07/22/18 14:30 IMPRESSION: Normal unenhanced CT scan of the brain. Partial opacification of the left axillary sinus and mucosal thickening of the ethmoid sinuses. Electronically Signed: Miah Sexton MD at 15:30 EST Tel [phone], Service support , Chest X-Ray 07/22/18 15:37 IMPRESSION: Satisfactory position of the support lines and tubes. No acute thoracic pathology. Electronically Signed: Romain Marie, at 16:11 EST Tel , Service support , Brain CT 07/23/18 09:31 IMPRESSION: Probable small acute or subacute nonhemorrhagic right basal ganglia and this could be confirmed with MRI. Otherwise negative. Electronically Signed: Austyn Fair MD at 10:31 EST , Service support , Brain CT 07/24/18 16:21 IMPRESSION: 1. CT findings suggests late sequela of anoxic injury with findings suggestive of brain , diffuse cerebral and cerebellar edema and early transtentorial shift. 2. Subacute right-sided basal ganglia infarct. N.B. : The above information has been verbally conveyed by Josephine Kohli MD to Samantha Mancera RN, on 07/24/2018 18:34:04 (ET). Electronically Signed: Josephine Kohli MD at 17:57 EST , Service support , Medical Necessity - Tobacco Use Smoking Status: Current every day smoker Tobacco Use: Cigarettes Assessment/Plan All Active Problems Cardiac arrest (Acute) Metabolic acidosis, increased anion gap (Acute) Anoxic brain damage (Acute) Seizure (Acute) RECOMMENDATIONS: 1. Neurologic examination, apnea testing and neurology evaluation support a diagnosis of brain . The patient was pronounced at 12:57 PM on July 27, 2018. [facility] is present to discuss donation options. IMPRESSIONS: 1. Acute respiratory failure status post PEA cardiac arrest The patient was intubated in the setting of PEA cardiac arrest, which appears to have been precipitated by a recent methamphetamine binge. The patient's ventilator requirements are minimal. However, he appears to have significant neurological injury, which will certainly preclude his ability to be liberated from mechanical ventilatory support. Plan to continue current supportive measures for now. Tube feeds will be continued. 2. Methamphetamine abuse The patient had reportedly been using substantial amounts of methamphetamine recently. Patient did use methamphetamine 1 hour prior to presentation. Clinical suspicion for arrhythmia leading to arrest initially. We will continue to support hemodynamics. 3. Metabolic/anoxic encephalopathy/seizure activity The patient was pronounced brain today by both myself and neurology. This diagnosis was confirmed by bedside neurological examination along with apnea testing. The family is aware of this diagnosis. 4. Hypernatremia Continue D5W as ordered. 5. Subacute right basal ganglia infarct/cerebral edema As noted above, the patient's CT head did reveal significant findings concerning for anoxic brain injury along with cerebral edema and subacute infarction. He will be continued on Decadron as ordered. Neurology is following to assist with prognostication. As noted above, I did have a lengthy discussion with the patient's mother this morning. The patient was pronounced this afternoon at 12:57 PM after he was confirmed to be brain by both neurological examination and apnea testing. The patient's mother is aware of this diagnosis and is wishing to pursue potential organ donation by [facility]. They are aware and are here to discuss further with the patient's mother. TIME: 90 minutes of critical care time, independent of procedures, was spent addressing the patient's acute respiratory failure status post PEA arrest, methamphetamine abuse, seizure activity, hypernatremia, cerebral edema, brain , discussion of CODE STATUS and coordination of goals of care, review of all data and collaboration with the care team. ([id number], [id number]) Code Visit Procedures: 21912 Critial Care Addl 30 Min 9xxxx: [id number] Critical care first hour
--- NOTE | 2018-07-27 07:38 | NURSING ---
Apnea test began with Dr Lopez, this RN and Jacqueline RT at the bedside. Ventilator support removed and 6L O2 applied to ETT. No spontaneous respirations observed. ABG obtained after 8 minutes of apnea and then patient placed back on ventilator support at 1048.
--- NOTE | 2018-07-27 08:06 | PCM.PN.HOSP ---
Patient Problems: Active and Suspected Problems Cardiac arrest (Acute) Metabolic acidosis, increased anion gap (Acute) GERD (gastroesophageal reflux disease) (Suspected) Anoxic brain damage (Acute) Seizure (Acute) Subjective: Patient remains unresponsive with events. Patient has sees spontaneous respiration. Apparently has no gag reflex. Sodium levels continue to climb at 158. Patient to undergo repeat EEG to either confirm or rule out brain Objective: GENERAL: Unresponsive HEENT: Atraumatic; moist oral mucosa EYES; Anicteric, Normal Conjunctiva NECK; supple, normal thyroid, no distended JVD. RESPIRATORY: Diminished to auscultation bilaterally, CARDIOVASCULAR: Regular S1 S2, GI: Nondistended, normoactive bowel sounds, EXTREMITIES: No edema, no clubbing, no cyanosis. MUSCULOSKELETAL: No Joint Tenderness; no muscle waisting NEURO: Unresponsive SKIN: Multiple tattoos on both extremities and trunk PSYCH; able to assess patient on the vent Vitals/I&O's: Vital Signs Temp Pulse Resp BP Pulse Ox 96.5 F L 71 14 82/49 L 94 07/27/18 07:00 07/27/18 07:00 07/27/18 07:00 07/27/18 07:00 07/27/18 07:00 Oxygen Delivery Method Mechanical Ventilator Weight: 80 kg Body Mass Index (BMI) 24.2 Intake and Output for Last 24 Hours 07/25/18 07/26/18 07/27/18 23:59 23:59 23:59 Intake Total 4438 / 4438 6485 / 6485 1329 / 1329 Output Total 8300 / 8300 9650 / 9650 950 / 950 Balance -3862 / -3862 -3165 / -3165 379 / 379 Microbiology Past 72 Hours 07/24/18 13:30 Blood Culture (Wb) - Arm Right Blood Culture - Preliminary No growth in 48 hours. 07/24/18 13:30 Blood Culture (Wb) - Arm Right Blood Culture - Preliminary No growth in 48 hours. 07/22/18 16:00 Sputum, Induced/Lukens Gram Stain - Final 07/22/18 16:00 Sputum, Induced/Lukens Respiratory Culture - Final Mixed normal respiratory jossy. No Haemophilus, Streptococcus pneumoniae, beta-hemolytic Streptococcus or Staphylococcus aureus isolated. Laboratory Results 07/27/18 01:40: Magnesium 2.3 07/27/18 04:10: WBC 13.3 H, RBC 4.33 L, Hgb 12.3 L, Hct 38.4 L, MCV 88.7, MCH 28.4, MCHC 32.0, RDW 13.6, RDW Differential 43.3, Plt Count 227, MPV 9.6, Immature Gran % (Auto) 0.300, Neut % (Auto) 86.3 H, Lymph % (Auto) 7.1 L, [place] % (Auto) 6.2, Eos % (Auto) 0.0, Baso % (Auto) 0.1, Absolute Neuts (auto) 11.5 H, Absolute Lymphs (auto) 0.95, Total Counted Not Reportable 07/27/18 04:10: Sodium 158 H, Potassium 4.3, Chloride 123 H, Carbon Dioxide 28.0, Anion Gap 7, BUN 19 H, Creatinine 1.33 H, Estim Creat Clear Calc 91.78, Est GFR (MDRD) Af Amer 81, Est GFR (MDRD) Non-Af 67, BUN/Creatinine Ratio 14.3, Glucose 132 H, Calcium 8.7 07/27/18 04:10: PT 14.9, INR 1.2, APTT 32.0 Current Medications Acetaminophen (Tylenol Liquid) 650 mg GT Q4H PRN PRN PRN Reason: Fever >101 Last Admin: 07/24/18 04:43 Dose: 650 mg Aspirin (Aspirin) 325 mg GT DAILY [facility] Last Admin: 07/26/18 09:03 Dose: 325 mg Chlorhexidine Gluconate () 15 ml PO BID [facility] Last Admin: 07/26/18 21:22 Dose: 15 ml Chlorhexidine Gluconate () 1 each TOPICAL DAILY [facility] Last Admin: 07/27/18 01:42 Dose: 1 each Dexamethasone Sodium Phosphate (Decadron) 4 mg IV Q8 [facility] Last Admin: 07/27/18 05:12 Dose: 4 mg Heparin Sodium (Porcine) (Heparin Na) 5,000 unit SC Q12 [facility] Last Admin: 07/26/18 21:23 Dose: Not Given Hydralazine HCl (Apresoline Iv) 20 mg IV Q6H PRN PRN PRN Reason: SBP > 160 Sodium Chloride () 250 mls @ 15 mls/hr IV .[id number] PRN PRN Reason: SALINE FLUSH Sodium Chloride () 250 mls @ 15 mls/hr IV .[id number] PRN PRN Reason: SALINE FLUSH Enteral Nutritional Formula (Vital Af 1.2 [place] Liquid) 1,000 mls @ 20 mls/hr GT .Q48H [facility] Last Admin: 07/26/18 10:54 Dose: 20 mls/hr Levetiracetam (Keppra Iv) 100 mls @ 400 mls/hr IV Q12 [facility] Last Admin: 07/26/18 21:24 Dose: 400 mls/hr Epinephrine HCl 1 mg/ Dextrose 251 mls @ 15.06 mls/hr IV .[id number] [facility] Last Admin: 07/27/18 05:07 Dose: Not Given Dopamine HCl/Dextrose () 800 mg in 250 mls @ 8.147 mls/hr IV .[id number] [facility] Last Admin: 07/27/18 01:43 Dose: Not Given Dextrose () 1,000 mls @ 250 mls/hr IV .Q4H [facility] Last Admin: 07/27/18 07:46 Dose: 250 mls/hr Labetalol HCl (Trandate) 20 mg IV Q4H PRN PRN PRN Reason: sbp>160 Last Admin: 07/24/18 13:53 Dose: 20 mg Lansoprazole (Prevacid) 30 mg GT Q24 [facility] Last Admin: 07/26/18 09:06 Dose: 30 mg Lorazepam (Ativan) 2 mg IV Q2H PRN PRN PRN Reason: SPASMS Last Admin: 07/25/18 07:11 Dose: 2 mg Magnesium Hydroxide (Milk Of Magnesia) 30 ml PO DAILY PRN PRN PRN Reason: Constipation Metoprolol Tartrate (Lopressor (Beta Joseph)) 5 mg IV Q6H PRN PRN PRN Reason: Heart Rate control Multi-Ingredient Cream (Lacrilube) 1 applic OPHTHALMIC BID [facility] Last Admin: 07/26/18 21:23 Dose: 1 applicatio Ondansetron HCl (Zofran) 4 mg IV Q6H PRN PRN PRN Reason: Nausea Sodium Chloride () 5 - 15 ml IV UD PRN PRN Reason: SALINE FLUSH Last Admin: 07/26/18 05:12 Dose: 15 ml Medical Necessity - Tobacco Use Smoking Status: Current every day smoker Tobacco Use: Cigarettes Assessment/Plan All Active Problems Cardiac arrest (Acute) Metabolic acidosis, increased anion gap (Acute) Anoxic brain damage (Acute) Seizure (Acute) Patient is a 32-year-old male who was brought to the emergency department following cardiac arrest. Patient had apparently been using methamphetamines for 3 days continuously. His initial assessment was consistent with metabolic acidosis following cardiac arrest, acute kidney injury, rhabdomyolysis, shock liver and anoxic brain injury intubated and transferred to the intensive care unit 1. Cardiac arrest suspected to be secondary to methamphetamine overdose. Patient presented with PEA successfully resuscitated however he ended up with respiratory failure and anoxic brain injury; EEG performed on 07/25/2018 demonstrated an abnormal EEG due to the severe background slowing with very low voltage. This may be seen during generalized cerebral dysfunction, clinical correlation is advised. There is no epileptiform discharges or electrographic seizures noted during the record.Plan is for family discussion later this morning to decide terminal weaning versus continues aggressive medical care which will involve placement of trach and a PEG and possible transfer to an LTAC. 07/27/2018 significant change in patient's condition. Patient no longer has spontaneous breathing, has no gag reflex,. Patient undergo repeat EEG to rule out brain 2. Acute hypoxic respiratory failure secondary to patient's cardiac arrest intubated in the ED transferred to the intensive care unit vent management deferred to the tool technician 3. Suspected anoxic brain injury patient undergo EEG on 07/25/2018: Results as discussed above 4. Acute kidney injury from hypoperfusion state following patient cardiac arrest on fluids kidney function appears to be improving 5. Shock liver 6. Acute rhabdomyolysis 7. Hypernatremia patient started on D5W with monitoring of electrolyte 8. History of bipolar disorder 9. Schizophrenia 10. Polysubstance abuse 11. GERD on Protonix 12. DVT prophylaxis SC heparin Code Visit Inpatient E&M: 98384 Subs Hosp L3
--- NOTE | 2018-07-27 08:11 | PN_ITS ---
Patient Problems: Active and Suspected Problems Cardiac arrest (Acute) Metabolic acidosis, increased anion gap (Acute) GERD (gastroesophageal reflux disease) (Suspected) Anoxic brain damage (Acute) Seizure (Acute) Subjective: Patient remains unresponsive with events. Patient has sees spontaneous respiration. Apparently has no gag reflex. Sodium levels continue to climb at 158. Patient to undergo repeat EEG to either confirm or rule out brain Objective: GENERAL: Unresponsive HEENT: Atraumatic; moist oral mucosa EYES; Anicteric, Normal Conjunctiva NECK; supple, normal thyroid, no distended JVD. RESPIRATORY: Diminished to auscultation bilaterally, CARDIOVASCULAR: Regular S1 S2, GI: Nondistended, normoactive bowel sounds, EXTREMITIES: No edema, no clubbing, no cyanosis. MUSCULOSKELETAL: No Joint Tenderness; no muscle waisting NEURO: Unresponsive SKIN: Multiple tattoos on both extremities and trunk PSYCH; able to assess patient on the vent Vitals/I&O's: Vital Signs Temp Pulse Resp BP Pulse Ox 96.5 F L 71 14 82/49 L 94 07/27/18 07:00 07/27/18 07:00 07/27/18 07:00 07/27/18 07:00 07/27/18 07:00 Oxygen Delivery Method Mechanical Ventilator Weight: 80 kg Body Mass Index (BMI) 24.2 Intake and Output for Last 24 Hours 07/25/18 07/26/18 07/27/18 23:59 23:59 23:59 Intake Total 4438 / 4438 6485 / 6485 1329 / 1329 Output Total 8300 / 8300 9650 / 9650 950 / 950 Balance -3862 / -3862 -3165 / -3165 379 / 379 Microbiology Past 72 Hours 07/24/18 13:30 Blood Culture (Wb) - Arm Right Blood Culture - Preliminary No growth in 48 hours. 07/24/18 13:30 Blood Culture (Wb) - Arm Right Blood Culture - Preliminary No growth in 48 hours. 07/22/18 16:00 Sputum, Induced/Lukens Gram Stain - Final 07/22/18 16:00 Sputum, Induced/Lukens Respiratory Culture - Final Mixed normal respiratory jossy. No Haemophilus, Streptococcus pneumoniae, beta-hemolytic Streptococcus or Staphylococcus aureus isolated. Laboratory Results 07/27/18 01:40: Magnesium 2.3 07/27/18 04:10: WBC 13.3 H, RBC 4.33 L, Hgb 12.3 L, Hct 38.4 L, MCV 88.7, MCH 28.4, MCHC 32.0, RDW 13.6, RDW Differential 43.3, Plt Count 227, MPV 9.6, Immature Gran % (Auto) 0.300, Neut % (Auto) 86.3 H, Lymph % (Auto) 7.1 L, [place] % (Auto) 6.2, Eos % (Auto) 0.0, Baso % (Auto) 0.1, Absolute Neuts (auto) 11.5 H, Absolute Lymphs (auto) 0.95, Total Counted Not Reportable 07/27/18 04:10: Sodium 158 H, Potassium 4.3, Chloride 123 H, Carbon Dioxide 28.0, Anion Gap 7, BUN 19 H, Creatinine 1.33 H, Estim Creat Clear Calc 91.78, Est GFR (MDRD) Af Amer 81, Est GFR (MDRD) Non-Af 67, BUN/Creatinine Ratio 14.3, Glucose 132 H, Calcium 8.7 07/27/18 04:10: PT 14.9, INR 1.2, APTT 32.0 Current Medications Acetaminophen (Tylenol Liquid) 650 mg GT Q4H PRN PRN PRN Reason: Fever >101 Last Admin: 07/24/18 04:43 Dose: 650 mg Aspirin (Aspirin) 325 mg GT DAILY [facility] Last Admin: 07/26/18 09:03 Dose: 325 mg Chlorhexidine Gluconate () 15 ml PO BID [facility] Last Admin: 07/26/18 21:22 Dose: 15 ml Chlorhexidine Gluconate () 1 each TOPICAL DAILY [facility] Last Admin: 07/27/18 01:42 Dose: 1 each Dexamethasone Sodium Phosphate (Decadron) 4 mg IV Q8 [facility] Last Admin: 07/27/18 05:12 Dose: 4 mg Heparin Sodium (Porcine) (Heparin Na) 5,000 unit SC Q12 [facility] Last Admin: 07/26/18 21:23 Dose: Not Given Hydralazine HCl (Apresoline Iv) 20 mg IV Q6H PRN PRN PRN Reason: SBP > 160 Sodium Chloride () 250 mls @ 15 mls/hr IV .[id number] PRN PRN Reason: SALINE FLUSH Sodium Chloride () 250 mls @ 15 mls/hr IV .[id number] PRN PRN Reason: SALINE FLUSH Enteral Nutritional Formula (Vital Af 1.2 [place] Liquid) 1,000 mls @ 20 mls/hr GT .Q48H [facility] Last Admin: 07/26/18 10:54 Dose: 20 mls/hr Levetiracetam (Keppra Iv) 100 mls @ 400 mls/hr IV Q12 [facility] Last Admin: 07/26/18 21:24 Dose: 400 mls/hr Epinephrine HCl 1 mg/ Dextrose 251 mls @ 15.06 mls/hr IV .[id number] [facility] Last Admin: 07/27/18 05:07 Dose: Not Given Dopamine HCl/Dextrose () 800 mg in 250 mls @ 8.147 mls/hr IV .[id number] [facility] Last Admin: 07/27/18 01:43 Dose: Not Given Dextrose () 1,000 mls @ 250 mls/hr IV .Q4H [facility] Last Admin: 07/27/18 07:46 Dose: 250 mls/hr Labetalol HCl (Trandate) 20 mg IV Q4H PRN PRN PRN Reason: sbp>160 Last Admin: 07/24/18 13:53 Dose: 20 mg Lansoprazole (Prevacid) 30 mg GT Q24 [facility] Last Admin: 07/26/18 09:06 Dose: 30 mg Lorazepam (Ativan) 2 mg IV Q2H PRN PRN PRN Reason: SPASMS Last Admin: 07/25/18 07:11 Dose: 2 mg Magnesium Hydroxide (Milk Of Magnesia) 30 ml PO DAILY PRN PRN PRN Reason: Constipation Metoprolol Tartrate (Lopressor (Beta Joseph)) 5 mg IV Q6H PRN PRN PRN Reason: Heart Rate control Multi-Ingredient Cream (Lacrilube) 1 applic OPHTHALMIC BID [facility] Last Admin: 07/26/18 21:23 Dose: 1 applicatio Ondansetron HCl (Zofran) 4 mg IV Q6H PRN PRN PRN Reason: Nausea Sodium Chloride () 5 - 15 ml IV UD PRN PRN Reason: SALINE FLUSH Last Admin: 07/26/18 05:12 Dose: 15 ml Medical Necessity - Tobacco Use Smoking Status: Current every day smoker Tobacco Use: Cigarettes Assessment/Plan All Active Problems Cardiac arrest (Acute) Metabolic acidosis, increased anion gap (Acute) Anoxic brain damage (Acute) Seizure (Acute) Patient is a 32-year-old male who was brought to the emergency department following cardiac arrest. Patient had apparently been using methamphetamines for 3 days continuously. His initial assessment was consistent with metabolic acidosis following cardiac arrest, acute kidney injury, rhabdomyolysis, shock liver and anoxic brain injury intubated and transferred to the intensive care unit 1. Cardiac arrest suspected to be secondary to methamphetamine overdose. Patient presented with PEA successfully resuscitated however he ended up with respiratory failure and anoxic brain injury; EEG performed on 07/25/2018 demonstrated an abnormal EEG due to the severe background slowing with very low voltage. This may be seen during generalized cerebral dysfunction, clinical correlation is advised. There is no epileptiform discharges or electrographic seizures noted during the record.Plan is for family discussion later this morning to decide terminal weaning versus continues aggressive medical care which will involve placement of trach and a PEG and possible transfer to an LTAC. 07/27/2018 significant change in patient's condition. Patient no longer has spontaneous breathing, has no gag reflex,. Patient undergo repeat EEG to rule out brain 2. Acute hypoxic respiratory failure secondary to patient's cardiac arrest intubated in the ED transferred to the intensive care unit vent management deferred to the collar separator 3. Suspected anoxic brain injury patient undergo EEG on 07/25/2018: Results as discussed above 4. Acute kidney injury from hypoperfusion state following patient cardiac arrest on fluids kidney function appears to be improving 5. Shock liver 6. Acute rhabdomyolysis 7. Hypernatremia patient started on D5W with monitoring of electrolyte 8. History of bipolar disorder 9. Schizophrenia 10. Polysubstance abuse 11. GERD on Protonix 12. DVT prophylaxis SC heparin Code Visit Inpatient E&M: 47496 Subs Hosp L3
[2018-07-27 08:51] LABS: Allen Test POS; Base Excess 3 mmol/L (-2 to +2); Bicarbonate 26.5 mmol/L (22-26); Blood Gas Specimen Type ART; FI02 25; Mode A-C; O2 Delivery Device Vent; PEEP 5; PO2 93 mmHG (75-100); RR 14; SITE L Radial; SO2 98 % (95-99); Time Given 846; Total Carbon Dioxide 28 mmol/L; Vt 450; pCO2 37.3 mmHg (35-45); pH 7.46 (7.35-7.45)
[2018-07-27] MEDS: levETIRAcetam IV 100 ML 400 MG IV (09:15)
[2018-07-27] MEDS: Chlorhexidine 15 ML PO (09:15)
[2018-07-27] MEDS: Aspirin 325 MG Tablet GT (09:15)
[2018-07-27] MEDS: Heparin Injection (Vial) 5,000 UNIT/ML VIAL 5000 UNIT SC (09:15)
[2018-07-27] MEDS: Petrolatum,White 3.75GM OPTH.TUBE 1 APPLIC OPHTHALMIC (09:15)
[2018-07-27 10:55] LABS: Allen Test POS; Base Excess 4 mmol/L (-2 to +2); Bicarbonate 30.9 mmol/L (22-26); Blood Gas Specimen Type ART; O2 Delivery Device Nasal Can; PO2 340 mmHG (75-100); SITE L Radial; SO2 100 % (95-99); Time Given 1052; Total Carbon Dioxide 33 mmol/L; pCO2 70.1 mmHg (35-45); pH 7.25 (7.35-7.45)
--- NOTE | 2018-07-27 11:10 | CPS ---
Patient weaned on 6 l/m down the ET tube for Apnea test. ABG drawen at 8 minutes.
--- NOTE | 2018-07-27 13:12 | PCM.PN.NEU ---
Patient Problems: Active and Suspected Problems Cardiac arrest (Acute) Metabolic acidosis, increased anion gap (Acute) GERD (gastroesophageal reflux disease) (Suspected) Anoxic brain damage (Acute) Seizure (Acute) Subjective: At present patient does not have any protective brainstem reflexes. Apnea test is positive. Patient s/p cardiac arrest secondary to drug overdose, CT head consistent with anoxic brain injury and at present patient's neurological examination consistent with brain - Physical Exam General: - - comatose, no response HEENT: Normocephalic Neurological: - - comatose, pupils B/L fixed and dilated not reacting to light, corneal reflex, conjuctival reflex, gag reflex absent, absent Doll's eye, cold caloric examination no response, no response to DPS. Vital Signs Temp Pulse Resp BP Pulse Ox 97.4 F L 80 14 97/63 95 07/27/18 12:00 07/27/18 13:02 07/27/18 13:02 07/27/18 13:00 07/27/18 13:02 Oxygen Flow Rate (L/min) 6 Oxygen Delivery Method Mechanical Ventilator Weight: 80 kg Body Mass Index (BMI) 24.2 Intake and Output for Last 24 Hours 07/25/18 07/26/18 07/27/18 23:59 23:59 23:59 Intake Total 4438 / 4438 6485 / 6485 3209 / 3209 Output Total 8300 / 8300 9650 / 9650 3100 / 3100 Balance -3862 / -3862 -3165 / -3165 109 / 109 Microbiology Past 72 Hours 07/24/18 13:30 Blood Culture - Preliminary Blood Culture (Wb) - Arm Right No growth in 48 hours. 07/24/18 13:30 Blood Culture - Preliminary Blood Culture (Wb) - Arm Right No growth in 48 hours. 07/22/18 16:00 Gram Stain - Final Sputum, Induced/Lukens Respiratory Culture - Final Mixed normal respiratory jossy. No Haemophilus, Streptococcus pneumoniae, beta-hemolytic Streptococcus or Staphylococcus aureus isolated. Laboratory Tests Past 24 Hrs 07/27/18 07/27/18 07/27/18 01:40 04:10 04:10 WBC 13.3 H RBC 4.33 L Hgb 12.3 L Hct 38.4 L MCV 88.7 MCH 28.4 MCHC 32.0 RDW 13.6 RDW Differential 43.3 Plt Count 227 MPV 9.6 Immature Gran % (Auto) 0.300 Neut % (Auto) 86.3 H Lymph % (Auto) 7.1 L [place] % (Auto) 6.2 Eos % (Auto) 0.0 Baso % (Auto) 0.1 Absolute Neuts (auto) 11.5 H Absolute Lymphs (auto) 0.95 Total Counted Not Reportable PT INR APTT Specimen Type Sample Site pH Bicarbonate Actual POC Total CO2 Base Excess O2 Saturation O2 % ABG pCO2 ABG pO2 Abiel Test Respiration Rate O2 Delivery Device Liter Flow Minute Volume Vent Mode Tidal Volume POC PEEP Blood Gas Notified Whom Blood Gas Notified Time Sodium 158 H Potassium 4.3 Chloride 123 H Carbon Dioxide 28.0 Anion Gap 7 BUN 19 H Creatinine 1.33 H Estim Creat Clear Calc 91.78 Est GFR (MDRD) Af Amer 81 Est GFR (MDRD) Non-Af 67 BUN/Creatinine Ratio 14.3 Glucose 132 H Calcium 8.7 Magnesium 2.3 07/27/18 07/27/18 07/27/18 04:10 08:47 10:52 WBC RBC Hgb Hct MCV MCH MCHC RDW RDW Differential Plt Count MPV Immature Gran % (Auto) Neut % (Auto) Lymph % (Auto) [place] % (Auto) Eos % (Auto) Baso % (Auto) Absolute Neuts (auto) Absolute Lymphs (auto) Total Counted PT 14.9 INR 1.2 APTT 32.0 Specimen Type ART ART Sample Site L Radial L Radial pH 7.46 H 7.25 L Bicarbonate Actual 26.5 H 30.9 H POC Total CO2 28 33 Base Excess 3 H 4 H O2 Saturation 98 100 H O2 % 25 ABG pCO2 37.3 70.1 H* ABG pO2 93 340 H* Abiel Test POS POS Respiration Rate 14 O2 Delivery Device Vent Nasal Can Liter Flow 6.0 Minute Volume 7.00 Vent Mode A-C Tidal Volume 450 POC PEEP 5 Blood Gas Notified Whom ICU MD ICU MD Blood Gas Notified Time 846 1052 Sodium Potassium Chloride Carbon Dioxide Anion Gap BUN Creatinine Estim Creat Clear Calc Est GFR (MDRD) Af Amer Est GFR (MDRD) Non-Af BUN/Creatinine Ratio Glucose Calcium Magnesium Medical Necessity - Tobacco Use Smoking Status: Current every day smoker Tobacco Use: Cigarettes Assessment/Plan All Active Problems Cardiac arrest (Acute) Metabolic acidosis, increased anion gap (Acute) Anoxic brain damage (Acute) Seizure (Acute) The patient is a 32 year old AAM with PMH Bipolar mood d/o, drug abuse admitted s/p cardiac arrest on 07/22/18. History is obtained from medical records and nurse taking care of the patient. Per documentation patient had cardiac arrest on 07/22/18, estimated down time between 25-45 minutes per documentation, had seizures 07/24/18 following which he was loaded with Dilantin and Keppra. At present patient does not have any protective brain stem reflex, apnea test has been positive as done by ICU team, does not breath over the ventilator, UDS showed amphetamine and methamphetamine positive. CT head done on 07/24/18 reported to show anoxic brain injury with cerebral and cerebellar edema with transtentorial shift Impression Anoxic brain injury S/P Cardiac arrest likely secondary to drug abuse Seizure Plan -At present patient's clinical examination is consistent with brain . No protective brainstem reflexes at present, Apnea test positive as done by ICU team -CT head reviewed- anoxic brain damage -Discussed with ICU Dr. Lopez -Please call with questions if any -Thank you for allowing us to participate in patient's care and management
--- NOTE | 2018-07-27 15:28 | PCM.DEATH ---
Preliminary Cause of anoxic brain injury Date of Admission: 07/22/18 Date of : 07/27/18 - Principle Diagnosis Anoxic brain injury Cardiac arrest suspected to be secondary to methamphetamine overdose Acute hypoxic respiratory failure Hospital Course Patient is a 32-year-old male who was brought to the emergency department following cardiac arrest. Patient had apparently been using methamphetamines for 3 days continuously. His initial assessment was consistent with metabolic acidosis following cardiac arrest, acute kidney injury, rhabdomyolysis, shock liver and anoxic brain injury intubated and transferred to the intensive care unit. Patient initially presented with PEA successfully resuscitated however he ended up with respiratory failure and anoxic brain injury; EEG performed on 07/25/2018 demonstrated an abnormal EEG due to the severe background slowing with very low voltage. Repeat EEG performed on 07/27/2018 confirmed brain . Patient was subsequently weaned and at 1257 on 07/27/2018 Time spent on the day of expiration 35-minute Code Visit Inpatient E&M: [id number] Disch Hosp
== END 2018-07-27 12:57 | DRG 812 ==
LOC: ED 13:32 → ICU 13:36
PROVIDERS: Internal Medicine Cardiovascular Disease; Internal Medicine Critical Care Medicine; Psychiatry & Neurology Neurology; Student in an Organized Health Care Education/Training Program; Admitting Provider Family Medicine; Emergency Provider Emergency Medicine; Referring Provider Family Medicine; Visit Provider Internal Medicine
DX: T43.621A Poisoning by amphetamines, accidental (unintentional), initial encounter (principal); I46.8 Cardiac arrest due to other underlying condition; J96.01 Acute respiratory failure with hypoxia; N17.9 Acute kidney failure, unspecified; G93.1 Anoxic brain damage, not elsewhere classified; I63.9 Cerebral infarction, unspecified; G93.6 Cerebral edema; K72.00 Acute and subacute hepatic failure without coma; K21.9 Gastro-esophageal reflux disease without esophagitis; Z23 Encounter for immunization; E87.2 Acidosis; M62.82 Rhabdomyolysis; R56.9 Unspecified convulsions; R40.2432 Glasgow coma scale score 3-8, at arrival to emergency department; E87.0 Hyperosmolality and hypernatremia; F31.9 Bipolar disorder, unspecified; F20.9 Schizophrenia, unspecified; F15.10 Other stimulant abuse, uncomplicated; F17.210 Nicotine dependence, cigarettes, uncomplicated
CPT/HCPCS: 31500; 31720; 36415; 36569; 36600; 51702; 70450; 71045; 74018; 80048; 80053; 80076; 80307; 81001; 82550; 82803; 83605; 83735; 84100; 84478; 84484; 85025; 85027; 85610; 85730; 87040; 87070; 87077; 87186; 87205; 92950; 93005; 93306; 94002; 94003; 94660; 97530; 97802; 97803; 99285; J7030; 90686; 95824; A4216; J0153